=== PATIENT | male | born 1950 | race Caucasian/White ===

== ENCOUNTER 2016-06-16 05:38 | Inpatient (IN) | payer OTHER, BC ==
[2016-06-16] MEDS ORDERED: niCARdipine/NACL/200 ML BAG IV ONE (05:52)
[2016-06-16 06:08] LABS: % IMMATURE GRANULYOCYTES 0.2 % (0.0-1.1); ABSOLUTE IMMATURE GRANULOCYTES 0.02 10^3/uL (0.00-0.10); ADD DIFF? NO; ADD MORPH? NO; ADD SCAN? NO; ATYPICAL LYMPHOCYTE FLAG 0 (0-99); FRAGMENT RBC FLAG 0 (0-99); HEMATOCRIT 48.2 % (40.0-51.0); LEFT SHIFT FLG 0 (0-99); LIPEMIA HEMOLYSIS FLAG 80 (0-99); MEAN CELL HEMOGLOBIN 29.1 pg (27.9-34.1); MEAN CELL HEMOGLOBIN CONCENTR. 33.2 g/dL (32.4-36.7); MEAN CELL VOLUME 87.8 fL (81.5-99.8); PLATELET CLUMPS FLAG 10 (0-99); PLATELET COUNT 272 10^3/uL (150-400); RED BLOOD CELL COUNT 5.49 10^6/uL (4.40-6.38); RED CELL DISTRIBUTION WIDTH 13.3 % (11.5-15.2)
--- NOTE | 2016-06-16 06:08 | EDPHY ---
H & P Stated Complaint: stroke alert HPI/ROS: Chief complaint: Right-sided weakness HPI: 68-year-old male who is visiting from out of town on a ski trip. Patient woke up at 5 o'clock this morning unable to move his right arm or leg. Patient states that he was went to bed at 10:30 a.m. last time was normal. He states he did get up during the night to go to the bathroom but does not know what time this was. Denies hitting his head or falling. Patient states he is feeling somewhat confused right now. On EMS arrival the patient had a flaccid paralysis of his right arm and right leg. The patient initially was not confused but symptoms seem to be worsening per EMS report. He denies past medical history. Takes no medications other than eye drops. No allergies to medications. Patient arrived as a stroke alert at 5:40 a.m. in the morning. ROS: 10 point Review of Systems is negative except as noted in the HPI. Past medical history: None Medications: None Allergies: No known drug allergies Physical exam: Gen: Awake, Alert, very anxious appearing HEENT: Atraumatic Eyes: PERRLA, EOMI Mouth: Moist mucosa Neck: Supple, no JVD Chest: nontender, lungs clear to auscultation Heart: S1, S2 normal, no murmur Abd: Soft, non-tender, no guarding Ext: no edema, non-tender Skin: no rash Neuro: See NIH stroke score - Personal History Current Tetanus/Diphtheria Vaccine: Yes Current Tetanus Diphtheria and Acellular Pertussis (TDAP): Yes - Medical/Surgical History Hx Asthma: No Hx Chronic Respiratory Disease: No Hx Diabetes: No Hx Cardiac Disease: No Hx Renal Disease: No Hx Cirrhosis: No Hx Alcoholism: No Hx HIV/AIDS: No Hx Splenectomy or Spleen Trauma: No Other PMH: enlarged prostate - Social History Smoking Status: Never smoked Constitutional: Initial Vital Signs Temperature (C) 36.2 C 06/16/16 05:40 Heart Rate 73 06/16/16 05:40 Respiratory Rate 16 06/16/16 05:40 Blood Pressure 207/102 H 06/16/16 05:40 O2 Sat (%) 97 06/16/16 05:40 O2 Delivery Mode Nasal Cannula O2 (L/minute) 2 Allergies/Adverse Reactions: No Known Allergies Allergy (Unverified 06/16/16 05:58) Home Medications: Medication Instructions Recorded Dorzolamide HCl 06/16/16 Medical Decision Making - Diagnostics Imaging: CT brain: Interpreted by Dr. Stephen Whitney. Large left parietal intraparenchymal bleed 7 x 3.5 cm with 4-5 mm of midline shift. ED Course/Re-evaluation: 0540 patient arrived stroke alert. NIH scale was performed with a score of 10. Last known time normal was 12/1929 last night. He did get up in the middle of the night to go the bathroom but does did not look at the clock and a what time this was. 0550 CT scan of the brain shows a large left high parietal intraparenchymal hemorrhage. Stroke alert was stood down at this time. Neurosurgery has been paged. Patient was noted to be hypertensive with a systolic blood pressure of 204. I have ordered a nicardipine drip. [address] Garcia, neurosurgery. She will consult on the patient. She agrees with plan for starting nicardipine drip. We strict blood pressure control. She is asking the patient be admitted to the ICU under the internal medicine service. Official CT report has been given to me by Dr. Stephen Whitney. 0600 case discussed with , internal Medicine. She will admit the patient to the ICU. Blood pressure is now 153 systolic on nicardipine infusion. Will continue to titrate. 0620 blood pressure 143 systolic, with decreased titration of the. Dr. Sutton evaluating the patient. Critical Care Time: I spent a total of 45 minutes of critical care time in obtaining history, performing a physical exam, bedside monitoring of interventions, collecting and interpreting tests and discussion with consultants but not including time spent performing procedures. - Data Points Laboratory Results: Laboratory Results 06/16/16 05:40 06/16/16 05:40 06/16/16 06/16/16 06/16/16 05:40 05:40 05:40 WBC RBC Hgb POC Hgb Hct POC Hct MCV MCH MCHC RDW Plt Count MPV Neut % (Auto) Lymph % (Auto) [place] % (Auto) Eos % (Auto) Baso % (Auto) Nucleat RBC Rel Count Absolute Neuts (auto) Absolute Lymphs (auto) Absolute Monos (auto) Absolute Eos (auto) Absolute Basos (auto) Absolute Nucleated RBC Immature Gran % Immature Gran # PT 13.3 SEC SEC (12.0-15.0) INR 1.02 (0.83-1.16) APTT 26.9 SEC SEC (23.0-38.0) POC Sodium Sodium 142 mEq/L mEq/L (134-144) POC Potassium Potassium 4.1 mEq/L mEq/L (3.5-5.2) POC Chloride Chloride 104 mEq/L mEq/L (97-110) Carbon Dioxide 25 mEq/l mEq/l (22-31) Anion Gap 13 mEq/L mEq/L (8-16) POC BUN BUN 22 mg/dL mg/dL (7-23) Creatinine 1.1 mg/dL mg/dL (0.7-1.3) POC Creatinine Estimated GFR > 60 Glucose 109 mg/dL H mg/dL (70-100) POC Glucose Calcium 9.8 mg/dL mg/dL (8.5-10.4) Total Bilirubin 0.6 mg/dL mg/dL (0.1-1.4) Conjugated Bilirubin 0.2 mg/dL mg/dL (0.0-0.5) Unconjugated Bilirubin 0.4 mg/dL mg/dL (0.0-1.1) AST 37 IU/L IU/L (17-59) ALT 34 IU/L IU/L (21-72) Alkaline Phosphatase 34 IU/L L IU/L (38-126) Total Protein 7.6 g/dL g/dL (6.3-8.2) Albumin 4.4 g/dL g/dL (3.5-5.0) Lipase 150.0 IU/L IU/L (23-300) Patient ABO/Rh A NEGATIVE Antibody Screen NEGATIVE 06/16/16 06/16/16 05:40 05:40 WBC 8.99 10^3/uL 10^3/uL (3.80-9.50) RBC 5.49 10^6/uL 10^6/uL (4.40-6.38) Hgb 16.0 g/dL g/dL (13.7-17.5) POC Hgb 16.7 gm/dL gm/dL (14.5-17.3) Hct 48.2 % % (40.0-51.0) POC Hct 49 % % (42.8-50.6) MCV 87.8 fL fL (81.5-99.8) MCH 29.1 pg pg (27.9-34.1) MCHC 33.2 g/dL g/dL (32.4-36.7) RDW 13.3 % % (11.5-15.2) Plt Count 272 10^3/uL 10^3/uL (150-400) MPV 11.0 fL fL (8.7-11.7) Neut % (Auto) 48.6 % % (39.3-74.2) Lymph % (Auto) 39.8 % % (15.0-45.0) Dickens % (Auto) 8.6 % % (4.5-13.0) Eos % (Auto) 2.1 % % (0.6-7.6) Baso % (Auto) 0.7 % % (0.3-1.7) Nucleat RBC Rel Count 0.0 % % (0.0-0.2) Absolute Neuts (auto) 4.37 10^3/uL 10^3/uL (1.70-6.50) Absolute Lymphs (auto) 3.58 10^3/uL H 10^3/uL (1.00-3.00) Absolute Monos (auto) 0.77 10^3/uL 10^3/uL (0.30-0.80) Absolute Eos (auto) 0.19 10^3/uL 10^3/uL (0.03-0.40) Absolute Basos (auto) 0.06 10^3/uL 10^3/uL (0.02-0.10) Absolute Nucleated RBC 0.00 10^3/uL 10^3/uL (0-0.01) Immature Gran % 0.2 % % (0.0-1.1) Immature Gran # 0.02 10^3/uL 10^3/uL (0.00-0.10) PT INR APTT POC Sodium 143 mEq/L mEq/L (134-144) Sodium POC Potassium 3.7 mEq/L mEq/L (3.3-5.0) Potassium POC Chloride 104 mEq/L mEq/L (96-108) Chloride Carbon Dioxide Anion Gap POC BUN 23 mg/dL mg/dL (7-23) BUN Creatinine POC Creatinine 1.1 mg/dL mg/dL (0.8-1.5) Estimated GFR Glucose POC Glucose 113 mg/dL H mg/dL (70-100) Calcium Total Bilirubin Conjugated Bilirubin Unconjugated Bilirubin AST ALT Alkaline Phosphatase Total Protein Albumin Lipase Patient ABO/Rh Antibody Screen Medications Given: Discontinued Medications Levetiracetam 1,000 mg/ Sodium (Chloride) 110 mls @ 440 mls/hr IV EDNOW ONE Stop: 06/16/16 06:34 Last Admin: 06/16/16 06:32 Dose: 110 mls Point of Care Test Results: 06/16/16 05:40 POC Sodium 143 POC Potassium 3.7 POC Chloride 104 POC BUN 23 POC Creatinine 1.1 POC Glucose 113 H Departure - Departure Disposition: [facility] Inpatient Acute Clinical Impression: Cerebral hemorrhage Condition: Critical NIH Stroke Scale Date of Exam: 06/16/16 Time of Exam: 05:40 Level of Consciousness: Alert LOC Questions: Answers One LOC Commands: Performs Both Correctly Best Gaze: Normal Visual: No Visual Loss Facial Palsy: Normal Motor Arm-Left: No Drift Motor Arm-Right: No Movement Motor Leg-Left: No Drift Motor Leg-Right: No Movement Limb Ataxis: Absent Sensory: Mild/Mod Sensory Loss Best Language: No Aphasia Dysarthria: Normal Extinction and Inattention (Neglect): No Abnormality NIH Scale Score: 10
[2016-06-16 06:19] LABS: ALANINE AMINOTRANSFERASE 34 IU/L (21-72); ALBUMIN 4.4 g/dL (3.5-5.0); ALKALINE PHOSPHATASE 34 IU/L (38-126); ANION GAP 13 mEq/L (8-16); ASPARTATE AMINOTRANSFERASE 37 IU/L (17-59); BILIRUBIN,TOTAL 0.6 mg/dL (0.1-1.4); BILIRUBIN-CONJUGATED 0.2 mg/dL (0.0-0.5); BILIRUBIN-UNCONJUGATED 0.4 mg/dL (0.0-1.1); CALCIUM 9.8 mg/dL (8.5-10.4); CARBON DIOXIDE 25 mEq/l (22-31); CHLORIDE 104 mEq/L (97-110); CREATININE 1.1 mg/dL (0.7-1.3); GLOMERULAR FILTRATION RATE > 60; GLUCOSE 109 mg/dL (70-100); POTASSIUM 4.1 mEq/L (3.5-5.2); SODIUM 142 mEq/L (134-144); TOTAL PROTEIN 7.6 g/dL (6.3-8.2)
[2016-06-16 06:20] LABS: INR 1.02 (0.83-1.16); PROTIME(PATIENT) 13.3 SEC (12.0-15.0)
[2016-06-16] MEDS ORDERED: levETIRAcetam 1,000 MG in NS 100 ML IV ONE (06:20)
[2016-06-16 06:21] LABS: APTT 26.9 SEC (23.0-38.0)
[2016-06-16] MEDS ORDERED: NS 1,000 ML IV SCH (06:30)
[2016-06-16] MEDS ORDERED: niCARdipine/NACL 200 ML IV SCH (06:30)
--- NOTE | 2016-06-16 06:42 | PDGENHP ---
History and Physical - Chief Complaint hemiparesis - History of Present Illness Patient is a 66/M with no significant pmh who was brought into the ED as a stroke alert for acute onset R hemiparesis. History is limited by patient, obtained from patient's and ED staff. Patient is visiting his son in [place] from [place] for a vacation. On the day prior to presentation, patient was skiing without incident, denies any obvious fall or head trauma. He went to sleep at around 1030pm without any deficits and also woke up once to urinate, again without deficits (unknown exactly what time this occurred). Patient woke up this morning at about 4am and had complete paralysis of his R side. EMS was called and he was transported to the ED. On arrival to the ED, VS revealed significant hypertension, afebrile, saturating well. CT head revealed a large L parietal intraparenchymal hemorrhage. On arrival to the ED patient was able to answer simple commands and speak single words, however, over the course of his ED stay, his MS began to deteriorate. On my evaluation, patient was aphasic and unable to answer questions or follow commands, with NIH scale 16. He was initiated on a nicardipine drip for BP control and keppra for seizure prophylaxis. History Information - Allergies/Home Medication List Allergies/Adverse Reactions: No Known Allergies Allergy (Unverified 06/16/16 05:58) Home Medications: Dorzolamide HCl 06/16/16 [Last Taken Unknown] I have personally reviewed and updated: family history, medical history, social history, surgical history - Past Medical History Additional medical history: glaucoma/elevated ocular pressure. BPH - Surgical History Reports: no pertinent surgical hx - Family History Positive for: non-pertinent - Social History Smoking Status: Never smoked Alcohol Use: None Drug Use: None Additional social history: Patient from the [facility], on vacation in [place] Review of Systems ROS: 10pt was reviewed & negative except for what was stated in HPI & below Physical Exam Temp Pulse Resp BP Pulse Ox 36.2 C 73 16 207/102 H 96 06/16/16 05:40 06/16/16 05:40 06/16/16 05:40 06/16/16 05:40 06/16/16 06:17 O2 (L/minute) 2 Constitutional: other (anxious, aphasic) Eyes: PERRL, anicteric sclera, EOMI Ears, Nose, Mouth, Throat: moist mucous membranes, hearing normal, ears appear normal, no oral mucosal ulcers Cardiovascular: regular rate and rhythym, no murmur, rub, or gallop, No JVD, No edema Peripheral Pulses: 2+: dorsalis-pedis (R), dorsalis-pedis (L) Respiratory: no respiratory distress, no rales or rhonchi, clear to auscultation Gastrointestinal: normoactive bowel sounds, soft, non-tender abdomen, no palpable masses Genitourinary: no bladder fullness, no bladder tenderness Skin: warm, normal color, no rashes or abrasions, no fluctuance, no induration, No mottled Neurologic: other (oriented to person, not able to follow simple commands, R hemiparesis 0/5 in upper and lower extremities; moving left extremities; ) Lab Data & Imaging Review 06/16/16 05:40 06/16/16 05:40 WBC 8.99 10^3/uL (3.80-9.50) 06/16/16 05:40 RBC 5.49 10^6/uL (4.40-6.38) 06/16/16 05:40 Hgb 16.0 g/dL (13.7-17.5) 06/16/16 05:40 POC Hgb 16.7 gm/dL (14.5-17.3) 06/16/16 05:40 Hct 48.2 % (40.0-51.0) 06/16/16 05:40 POC Hct 49 % (42.8-50.6) 06/16/16 05:40 MCV 87.8 fL (81.5-99.8) 06/16/16 05:40 MCH 29.1 pg (27.9-34.1) 06/16/16 05:40 MCHC 33.2 g/dL (32.4-36.7) 06/16/16 05:40 RDW 13.3 % (11.5-15.2) 06/16/16 05:40 Plt Count 272 10^3/uL (150-400) 06/16/16 05:40 MPV 11.0 fL (8.7-11.7) 06/16/16 05:40 Neut % (Auto) 48.6 % (39.3-74.2) 06/16/16 05:40 Lymph % (Auto) 39.8 % (15.0-45.0) 06/16/16 05:40 [place] % (Auto) 8.6 % (4.5-13.0) 06/16/16 05:40 Eos % (Auto) 2.1 % (0.6-7.6) 06/16/16 05:40 Baso % (Auto) 0.7 % (0.3-1.7) 06/16/16 05:40 Nucleat RBC Rel Count 0.0 % (0.0-0.2) 06/16/16 05:40 Absolute Neuts (auto) 4.37 10^3/uL (1.70-6.50) 06/16/16 05:40 Absolute Lymphs (auto) 3.58 10^3/uL (1.00-3.00) H 06/16/16 05:40 Absolute Monos (auto) 0.77 10^3/uL (0.30-0.80) 06/16/16 05:40 Absolute Eos (auto) 0.19 10^3/uL (0.03-0.40) 06/16/16 05:40 Absolute Basos (auto) 0.06 10^3/uL (0.02-0.10) 06/16/16 05:40 Absolute Nucleated RBC 0.00 10^3/uL (0-0.01) 06/16/16 05:40 Immature Gran % 0.2 % (0.0-1.1) 06/16/16 05:40 Immature Gran # 0.02 10^3/uL (0.00-0.10) 06/16/16 05:40 PT 13.3 SEC (12.0-15.0) 06/16/16 05:40 INR 1.02 (0.83-1.16) 06/16/16 05:40 APTT 26.9 SEC (23.0-38.0) 06/16/16 05:40 POC Sodium 143 mEq/L (134-144) 06/16/16 05:40 Sodium 142 mEq/L (134-144) 06/16/16 05:40 POC Potassium 3.7 mEq/L (3.3-5.0) 06/16/16 05:40 Potassium 4.1 mEq/L (3.5-5.2) 06/16/16 05:40 POC Chloride 104 mEq/L (96-108) 06/16/16 05:40 Chloride 104 mEq/L (97-110) 06/16/16 05:40 Carbon Dioxide 25 mEq/l (22-31) 06/16/16 05:40 Anion Gap 13 mEq/L (8-16) 06/16/16 05:40 POC BUN 23 mg/dL (7-23) 06/16/16 05:40 BUN 22 mg/dL (7-23) 06/16/16 05:40 Creatinine 1.1 mg/dL (0.7-1.3) 06/16/16 05:40 POC Creatinine 1.1 mg/dL (0.8-1.5) 06/16/16 05:40 Estimated GFR > 60 06/16/16 05:40 Glucose 109 mg/dL (70-100) H 06/16/16 05:40 POC Glucose 113 mg/dL (70-100) H 06/16/16 05:40 Calcium 9.8 mg/dL (8.5-10.4) 06/16/16 05:40 Total Bilirubin 0.6 mg/dL (0.1-1.4) 06/16/16 05:40 Conjugated Bilirubin 0.2 mg/dL (0.0-0.5) 06/16/16 05:40 Unconjugated Bilirubin 0.4 mg/dL (0.0-1.1) 06/16/16 05:40 AST 37 IU/L (17-59) 06/16/16 05:40 ALT 34 IU/L (21-72) 06/16/16 05:40 Alkaline Phosphatase 34 IU/L (38-126) L 06/16/16 05:40 Total Protein 7.6 g/dL (6.3-8.2) 06/16/16 05:40 Albumin 4.4 g/dL (3.5-5.0) 06/16/16 05:40 Lipase 150.0 IU/L (23-300) 06/16/16 05:40 Visualized and Interpreted imaging results: Yes Interpretation: CT head: large L pareietal intraparenchymal bleed Visualized and Interpreted EKG results: Yes EKG Interpretation: Positive for: normal sinsus rhythm (with minimal ST depressions in lateral leads) Assessment & Plan Assessment: Patient is 66/M with no significant pmh who presents to the ED with sudden onset R hemiparesis, arrive to the ED as a stroke alert at 540am, was found to have a large L parietal intraparenchymal hemorrhage. Plan: # acute intraparenchymal hemorrhage Patient denies any use of antiplatelet or blood thinning meds. CT shows evidence of large hemorrhage with surrounding edema causing midline shift. Patient is currently maintaining his airway, but his mental status seems to be deteriorating over the course of his ED stay. Neurosurgery has been contacted, recommendations pending. Will continue nicardipine for strict BP control with goal at SBP 140. Also initiated seizure prophylaxis with keppra. # acute hypertension BP significantly elevated on arrival, improved with nicardipine drip. Will cont this, pending further neurosurgery recommendations. # dispo: admit to ICU # gen: NPO DVT ppx: scds full code
--- NOTE | 2016-06-16 06:45 | CPEKG ---
Heart Rate: 91 RR Interval: 659 P-R Interval: 144 QRSD Interval: 100 QT Interval: 388 QTC Interval: 478 P Lytle: 66 QRS Lytle: 20 T Wave Lytle: -20 EKG Severity - ABNORMAL ECG - EKG Impression: SINUS RHYTHM EKG Impression: PROBABLE LEFT ATRIAL ABNORMALITY EKG Impression: NONSPECIFIC REPOL ABNORMALITY, DIFFUSE LEADS EKG Impression: BORDERLINE PROLONGED QT INTERVAL Electronically Signed By: Mack Foreman 16-Jun-2016 14:22:31
--- NOTE | 2016-06-16 07:52 | NEUSURGPN ---
Assessment/Plan: 66 yo male with left IPH - neuro checks - repeat head CT in 4 hours - maintain SBP < 140, on nicardipine - transfuse a pack of platelets due to questionable ASA use - PT/OT/ST Patient seen by myself and Dr. Garcia in the ED. Full consult note dictated. Subjective: Patient is aphasic. Objective: Aphasic. PERRL Right hemiplegic Following commands on LUE and LLE - Physician Patient Seen by Dr.: Garcia Neurosurgery Physical Exam - Vitals, I&O, Labs I and O 06/15/16 06/16/16 06/17/16 05:59 05:59 05:59 Intake Total 160 Output Total 550 Balance -390 Intake: IV Infused (ml) 160 Output: Urine (ml) 550 Other: Number of Voids 2 Vital Signs Temp Pulse Resp BP Pulse Ox 36.2 C 91 20 135/74 H 95 06/16/16 05:40 06/16/16 07:18 06/16/16 07:18 06/16/16 07:18 06/16/16 07:18 ICD10 Worksheet Patient Problems: Problems Problem Status Onset Cerebral hemorrhage Acute
--- NOTE | 2016-06-16 10:11 | GCON ---
[f rep st] CONSULTATION HISTORY OF PRESENT ILLNESS: The patient is a 66-year-old male who was brought to the emergency depa rtment due to acute onset of right-sided weakness. He and his are here on vacation from [facility] and spent some time skiing in [place]. Their plan was to leave this morning and fly back. The patient went to bed last evening in normal state of health. He then awoke this morning with right- sided weakness. Per the , the patient was not complaining of any headache, did not have any rogelio sea or vomiting. No seizures. Since arrival at the hospital, patient has become aphasic. History was obtained from the . She is unsure if he takes a daily aspirin but does know he takes it occ asionally. No other known blood thinners. PAST MEDICAL HISTORY: Denies. PAST SURGICAL HISTORY: Hernia repair, eye surgery. ALLERGIES: No known drug allergies. HOME MEDICATIONS: Dorzolamide. FAMILY HISTORY: Noncontributory. SOCIAL HISTORY: Unable to obtain as the patient is aphasic; however, per , the patient drinks o ccasionally. No tobacco use. PHYSICAL EXAMINATION: The patient was seen and examined in the emergency room department. VITAL SI GNS: Blood pressure 140/71, heart rate is 84, respiration rate is 18, breathing 98% on 2 L nasal ca nnula, temperature 36.6. Pupils are equal and reactive. Extraocular movements are intact. Facial expression is symmetrical. The patient is aphasic. He is following commands on the left upper and lower extremities. No movement on the right side. He is right hemiplegic. RESULTS: White count 8.99, hemoglobin 16.0, hematocrit 48.2, platelet count 272. PT 13.3. INR 1.0 2. PTT 26.9. Sodium 142, potassium 4.1, chloride 104, bicarb 25, BUN 22, creatinine 1.1. He had a head CT completed demonstrating large intraparenchymal hemorrhage in the high left parietal lobe with surrounding edema resulting in mild mass effect and shift. ASSESSMENT AND PLAN: In summary, the patient is a 66-year-old male who is aphasic and right hemiple gic. He had a head CT completed demonstrating a large intraparenchymal hemorrhage in the high left parietal lobe with surrounding edema resulting in mild mass effect and shift. The plan will be to transfuse with packed red platelets as it is unknown if the patient was taking a spirin on a routine basis. He will be admitted to the intensive care unit under the medicine team w ith q.1 hour neuro checks and maintaining systolic blood pressure less than 140. Head of bed should remain greater than 30 degrees. We will repeat a head CT in approximately 4 hours. No plans for s urgical intervention at this time. The patient was seen and examined by myself and Dr. Adriana Garcia in the emergency room department. /[id number]/MODL
[2016-06-16] MEDS ORDERED: ALTEPLASE 2 MG VIAL IVP PRN (10:38)
[2016-06-16] MEDS: niCARdipine/NACL 200 ML IV SCH ×6 (10:55→23:47)
[2016-06-16] MEDS: SODIUM Cl 3% 500 ML IV SCH (12:39)
--- NOTE | 2016-06-16 14:17 | GCON ---
[f rep st] CONSULTATION CRITICAL CARE CONSULT. DATE OF CONSULTATION: 06/16/2016 HISTORY OF PRESENT ILLNESS: This patient is a 66-year-old male, who did not have medical problems, who was brought to the emergency department early this morning after waking up with a severe headach e. He had been visiting [place] from the [facility] and doing well, skiing without difficulty, and woke up around 4:00 a.m. with complete paralysis of his right side. EMS was called, and he was brou ght to the emergency department. A head CT revealed a very large left parietal intraparenchymal hem orrhage. When he first arrived in the emergency department he was able to answer questions, follow simple commands, and speak in single words, however, over the course of his stay his mental status d id deteriorate. He was evaluated by Neurosurgery and no surgical intervention was required, but german se monitoring in the ICU was recommended, including blood pressure control. He did receive a transf usion of platelets, though I believe his platelet count was normal, and has been relatively stable i n the ICU since that period of time. Keppra and nicardipine were also started. REVIEW OF SYSTEMS: Otherwise negative. PAST MEDICAL HISTORY: Includes increased intraocular pressure, though his family says he was not di agnosed with glaucoma. He also has benign prostatic hypertrophy. PAST SURGICAL HISTORY: None. FAMILY HISTORY: None. SOCIAL HISTORY: He is a nonsmoker. No alcohol or IV drug use. MEDICATIONS: Outpatient medications were reviewed. PHYSICAL EXAM: VITAL SIGNS: He was afebrile, blood pressure was 139/77, heart rate of 93, respirat ions 16, oxygen saturation 95% on 1 L. GENERAL: He was awake and alert, though he was unable to re ally answer questions meaningfully. He did use 1 or 2 words that were easy to detect, but they were not helpful in answering the questions. HEENT: He had a right-sided facial droop, though his pupi ls were equal and reactive to light briskly. His extraocular movements were intact. He was able to shrug only his left shoulder. His right side was largely flaccid. Deep tendon reflexes were equiv ocal. Mucous membranes are moist without erythema or exudate. NECK: Supple, without adenopathy or jugular vein distention. RESPIRATORY: Breath sounds were clear to auscultation bilaterally withou t wheezes, rubs or rales. HEART: Regular rate and rhythm, without obvious murmurs, rubs, or gallop s. ABDOMEN: Soft, nontender, nondistended without hepatosplenomegaly. EXTREMITIES: Show no clubb ing, cyanosis, or edema. SKIN: Warm and dry without evidence of rash. LABORATORIES: Objective data includes the CT scans as described above. His white count this morning was 8.9, hematocrit was 48.2, platelets of 272. INR is 1.02. Basic me tabolic panel was normal, including a sodium of 142, creatinine 1.1. LFTs were normal. The alkalin e phosphatase was low at 34, lipase 150, albumin 4.4. ASSESSMENT AND PLAN: Acute intracranial hemorrhage. Not mentioned above was a blood pressure of ov er 200 on arrival to the emergency department, presumably which is the cause of his hemorrhage, vers us a secondary response. In any case Neurosurgical is following, and no surgical intervention is pl anned at this moment. There was a progression of disease on his subsequent CT scan, though his clin ical status appears to be unchanged at this time. Moving forward, we will continue to maintain a sy stolic blood pressure of less than 140, I would continue the nicardipine drip for this. Neurosurger y has ordered Keppra as seizure prophylaxis, which is not unreasonable at this time. He does have e vidence of increased intracranial pressure with a midline shift, and mild rightward subfalcine herni ation. Subsequently we will keep the head of his bed greater than 30 degrees, he is getting normal saline at this time. I believe Neurosurgery is considering hypertonic saline, more so than mannitol . He seems to be protecting his airway right now, so I do not think a ventilator is required, and h yperventilation is somewhat controversial. I calculated his [place] Coma Scale at about 13, and he seems to be stable at this time. We will continue observation, check a swallow study, and initiate physical therapy and occupational therapy in the near future. About 45 minutes of critical care ryley heath was required for this critically ill patient. /[id number]/MODL
--- NOTE | 2016-06-16 15:57 | HOSPPROG ---
Hospitalist Progress Note Assessment/Plan: * Intra-parenchymal hemorrhage with right hemiparesis and aphasia -some progression by CT - serial CT per neurosurgery -edema with mass effect/shift -IV 3% saline * HTN - SBP > 200 on admission (primary vs. secondary?) -IV Cardene gtt - goal SBP < 140 * Dysphagia - NPO -will likely require tube feeds * Chronic ASA use -s/p platelet transfusion * Increase intra-ocular pressure -continue Trusopt Subjective: awake but aphasic, can't move right side Objective: Vital Signs Temp Pulse Resp BP Pulse Ox 36.6 C 101 H 20 135/62 H 96 06/16/16 08:00 06/16/16 15:00 06/16/16 15:00 06/16/16 15:00 06/16/16 15:00 06/15/16 06/16/16 06/17/16 05:59 05:59 05:59 Intake Total 160 Output Total 550 Balance -390 PT 13.3 SEC (12.0-15.0) 06/16/16 05:40 INR 1.02 (0.83-1.16) 06/16/16 05:40 d/w Dr. Shirley ICU rounds - we will clarify plan with neurosurgery Head CT - some edema mass effect and midline shift - Physical Exam Constitutional: no apparent distress, appears nourished, not in pain Cardiovascular: regular rate and rhythym, no murmur, rub, or gallop Respiratory: no respiratory distress, no rales or rhonchi, clear to auscultation Gastrointestinal: normoactive bowel sounds, soft, non-tender abdomen, no palpable masses Neurologic: AAOx3 (unable to assess but seems to understand what is going on around him), weakness (complete right hemiparesis), numbness, facial droop, other (follows commands very consistently, very awake) Psychiatric: interacting appropriately, flat affect, No encephalopathic, No agitated ICD10 Worksheet Patient Problems: Problems Problem Status Onset Cerebral hemorrhage Acute
--- NOTE | 2016-06-16 16:27 | GCON ---
[f rep st] CONSULTATION NEUROLOGY CONSULTATION DATE OF CONSULTATION: 06/16/2016 REFERRING PHYSICIAN: Ivone Sutton MD CHIEF COMPLAINT: Intracerebral hemorrhage. HISTORY OF PRESENT ILLNESS: The patient is a very pleasant 66-year-old gentleman who is visiting from [place] on a ski trip to [place]. He went to bed without any problems last night at 10:30 p.m. and was normal. He got up at 5 a.m. to actually go home today and catch a flight in [place]. He was unable to move his right arm or right leg and came to the emergency department under a stroke alert. A head CT was done upon arrival immediately at 5:42 a.m. It showed a large intraparenchymal hemorrhage in the high left parietal lobe with surrounding edema. Neurosurgery was consulted and saw the patient as well. He was also seen in the ICU team, Dr. Shirley. He initially had a blood pressure systolics in the 200s which has been tightly controlled with IV nicardipine and under 140s and controlled now. The patient has no known past medical history. No history of hypertension or other chronic medical problems. He takes eyedrops for some ophthalmologic condition. He has no family history of amyloid or Alzheimer disease that they know of. PAST MEDICAL HISTORY: Some ophthalmological condition. HOME MEDICATION: Eye drops. ALLERGIES: No known drug allergies. SOCIAL HISTORY: He is . Lives in [place]. FAMILY HISTORY: No heritable neurologic disease. REVIEW OF SYSTEMS: A 10-point review of systems was done and only pertinent to the HPI. PHYSICAL EXAMINATION: VITAL SIGNS: Current vital signs, 135/62, O2 sats 96. The patient is afebrile at 36.6. NEUROLOGIC: Higher mental function: He is awake and alert. He has significant aphasia with mixed features. He can name slowly and named 4/5 correctly; with repetition, he scored 3/4; and following commands 0/4. There appeared to be significant comprehension issues, and the patient had a paucity or almost no spontaneous verbal output. There was also some right-sided neglect with a left gaze preference. On cranial nerve exam, the patient has an upper motor neuron right-sided facial weakness and left gaze preference. On motor exam, he has a fairly dense right hemiparesis. Sensory exam was unreliable due to the patient's aphasia. Coordination: On the left seemed unremarkable, on the right untestable due to his degree of hemiparesis. IMPRESSION/PLAN: 1. Large left parietal intraparenchymal hemorrhage. The etiology of the patient's intraparenchymal cerebral hemorrhage is unclear. We need to pursue an MRI brain and MRA of brain when stable. I will defer to my colleagues in Neurosurgery on what specific studies they also would like. I also agree with their blood pressure parameters. All anticoagulants/ antithrombotic must be held. He will need maximal therapies including OT, speech therapy, and physical therapy. We will tightly control his blood pressure and perform regular neuro checks. He will have a repeat head CT this afternoon without contrast. His was also interested in possible transfer to a higher level of care in [place] for neuro-intensive care. Certainly, that is a reasonable course of action. We can consider that transfer tomorrow morning if they are still interested. We also discussed long-term therapies including rehabilitation, etc. today. All questions were answered to the best of my ability. 70 minutes of total floor time today; over 50% in counseling and coordination of care with the patient and his . /[id number]/MODL MTDD
--- NOTE | 2016-06-16 17:20 | ECHO ---
[id number] + + [address] : : [place] [address] : : [phone] + + Adult Echocardiographic Report + --------+ :Name: Malinda ANGUIANO Date: 06/16/2016 09:57 AM BP: 149/69 mm Hg : : Hospital Admission Number: [id number] Locat ion: 253: :: 1950 Gender: Male Height: 69 in : :Age: 66 yrs Race: WH Weight: 155 l b : :Reason For Study: source of emboli and r/o PFO : : BSA: 1.9 mete rs2 : :History: Hemorrhagic stroke : + --------+ MMode/2D Measurements \T\ Calculations IVSd: 1.0 cm RVDd: 3.6 cm FS: 45.0 % Ao root diam: LVPWd: 1.1 cm LVIDd: 4.5 cm EDV(Teich): 92.1 ml3.0 cm LVIDs: 2.5 cm ESV(Teich): 21.7 mlLA dimension: EF(Teich): 76.4 % 2.9 cm LVOT diam: 2.2 cmLVLd ap4: 8.5 cm SV(MOD-sp4): LVOT area: EDV(MOD-sp4): 93.0 ml 4.0 cm2 146.0 ml LVLs ap4: 6.6 cm ESV(MOD-sp4): 53.0 ml EF(MOD-sp4): 63.7 % Normal Measurement Values: + + :LVIDd (3.5-5.7cm) IVSd (0.6-1.1cm) LVPWd (0.6-1.1cm) Aortic Root (2.0-3.7cm)Left Atrium (1.5-4.0cm): :LV Vol(d) (76-115ml) LV Vol(s) (29-48ml) Ejec Fraction (50-65%)PV Joe (0.6- 1.2m/s) TV Joe (0.4-1.0m/s) : :MV E Joe (0.8-1.0m/s)MV A Joe (0.3-1.0m/s)LVOT Joe (0.7-1.2m/s) Asc Ao Joe ( 0.9-1.8m/s) : + + Doppler Measurements \T\ Calculations MV E max joe: Ao V2 max: LV V1 max: SV(LVOT): 82.9 cm/sec 220.4 cm/sec 140.4 cm/sec 88.7 ml MV A max joe: Ao max P.4 mmHg LV V1 max P.7 cm/sec Ao mean P.8 mmHg 7.9 mmHg MV E/A: 1.3 Ao V2 mean: LV V1 mean PG: MV dec time: 0.20 joz902.1 cm/sec 3.2 mmHg Ao V2 VTI: 40.5 cm LV V1 mean: GABRIELLE(I,D): 2.2 cm2 84.9 cm/sec LV V1 VTI: 22.4 cm GABRIELLE(V,D): 2.5 cm2 PA V2 max: TR max joe: 93.7 cm/sec 285.1 cm/sec PA max P.5 mmHg TR max P.5 mmHg RAP systole: 10.0 mmHg RVSP(TR): 42.5 mmHg Left Ventricle The left ventricle is normal in size and function. There is mild concentric left ventricular hypertrophy. Ejection Fraction = 65%. No regional wall motion abnormalities noted. Right Ventricle The right ventricle is normal in size and function. Atria The left atrium is mildly dilated. The Left Atrial Volume is 35 ml/m2. Right atrial size is normal. Injection of contrast documented no interatrial shunt. Mitral Valve The mitral valve is normal in structure and function. There is no mitral valve stenosis. There is no mitral regurgitation noted. Tricuspid Valve The tricuspid valve is normal in structure and function. There is no tricuspid stenosis. There is mild tricuspid regurgitation. Right ventricular systolic pressure is 43mmHg. There is Doppler evidence for mild pulmonary hypertension. Aortic Valve The aortic valve is trileaflet. Mild aortic sclerosis. Mildly increased velocity across the aortic valve with no significant stenosis. Mild aortic regurgitation. Pulmonic Valve The pulmonic valve is not well visualized. Great Vessels The aortic root is normal size. Pericardium/Pleural There is no pericardial effusion. Conclusion A two-dimensional transthoracic echocardiogram with M-mode and Doppler was performed. Contrast injection was performed. There is no obvious source of embolus identified. If one is highly clinically suspected, then transesophageal echocardiography should be considered. Mild concentric LVH. Ejection Fraction = 65%. The left atrium is mildly dilated. There is mild tricuspid regurgitation. RVSP is 43mmHg. indicative of mild pulmonary hypertension. Mild aortic sclerosis. Mild aortic regurgitation. Final Reading Physician: Cal Layton signed on 06/16/2016 05:19 PM Ordering Physician: Ivone Sutton Performed By: Vidya Brandt
[2016-06-16] MEDS ORDERED: ONDANSETRON 4 MG/2 ML VIAL ONE (18:38)
[2016-06-16] MEDS ORDERED: ONDANSETRON 4 MG/2 ML VIAL IVP PRN (19:13)
[2016-06-16] MEDS: DORZOLAMIDE 2% OPTH DROPS LEFTEYE SCH (20:02)
[2016-06-17] MEDS: niCARdipine/NACL 200 ML IV SCH ×3 (02:03→06:27)
[2016-06-17] MEDS: ACETAMINOPHEN 325 MG TAB PO PRN ×2 (03:03→18:37)
[2016-06-17 06:02] LABS: % IMMATURE GRANULYOCYTES 0.4 % (0.0-1.1); ABSOLUTE IMMATURE GRANULOCYTES 0.06 10^3/uL (0.00-0.10); ADD DIFF? NO; ADD MORPH? NO; ADD SCAN? NO; ATYPICAL LYMPHOCYTE FLAG 0 (0-99); FRAGMENT RBC FLAG 0 (0-99); HEMATOCRIT 40.8 % (40.0-51.0); LEFT SHIFT FLG 20 (0-99); LIPEMIA HEMOLYSIS FLAG 90 (0-99); MEAN CELL HEMOGLOBIN 29.8 pg (27.9-34.1); MEAN CELL HEMOGLOBIN CONCENTR. 34.3 g/dL (32.4-36.7); MEAN CELL VOLUME 86.8 fL (81.5-99.8); MEAN PLATELET VOLUME 10.8 fL (8.7-11.7); PLATELET CLUMPS FLAG 0 (0-99); PLATELET COUNT 254 10^3/uL (150-400); RED CELL DISTRIBUTION WIDTH 13.3 % (11.5-15.2)
[2016-06-17 06:12] LABS: ANION GAP 9 mEq/L (8-16); CALCIUM 8.5 mg/dL (8.5-10.4); CARBON DIOXIDE 21 mEq/l (22-31); CHLORIDE 111 mEq/L (97-110); CREATININE 0.8 mg/dL (0.7-1.3); GLOMERULAR FILTRATION RATE > 60; GLUCOSE 134 mg/dL (70-100); POTASSIUM 3.9 mEq/L (3.5-5.2); SODIUM 141 mEq/L (134-144)
--- NOTE | 2016-06-17 07:39 | NEUSURGPN ---
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 Garcia and myself Subjective: denies any pain, nausea, dizziness Objective: NAD A&Ox3 right sided hemiparesis, right sided neglect.LUE and LLE / - Physician Patient Seen by : [facility] Neurosurgery Physical Exam - Vitals, I&O, Labs I and O 06/16/16 06/17/16 06/18/16 05:59 05:59 05:59 Intake Total 2768 Output Total 2775 Balance -7 Weight 70.307 kg Intake: IV Infused (ml) 2518 SODIUM Cl 3% 500 ml @ 25 381 mls/hr IV CONT LANE Rx#: [id number] niCARdipine/NACL 200 ml @ [address] Rx#: [id number] Platelets (ml) 250 Output: Urine (ml) 2775 Urinal 2225 Other: Number of Voids 2 Urinal 1 Vital Signs Temp Pulse Resp BP Pulse Ox 37.6 C 88 18 135/63 H 96 06/17/16 06:39 06/17/16 06:00 06/17/16 06:00 06/17/16 06:00 06/17/16 06:00 Laboratory Results 06/17/16 05:45 06/17/16 05:45 ICD10 Worksheet Patient Problems: Problems Problem Status Onset Cerebral hemorrhage Acute
[2016-06-17] MEDS: DORZOLAMIDE 2% OPTH DROPS LEFTEYE SCH ×2 (09:35→20:01)
--- NOTE | 2016-06-17 11:31 | PDINTPN ---
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 Brought to ED where CT revealed large intraparenchymal hemorrhage with shift. On arrival, patient was communicating normally, but developed partial expressive aphasia. Repeat head CT showed some increase in the ICH. No surgical intervention required, but started Cardene drip for BP control, Keppra for seizure prophylaxis, and hypertonic saline to achieve Na 145-155. * ICH- etiology unclear, though may be hypertensive since his SBP on admission was >200 (though no known hx of HTN and no previous meds). He is clearly clinically improved today with loss of facial droop and improved communication, though still has profound weakness of his RUE and RLE. Was up on his feet with PT earlier today. Passed swallow evaluation. No evidence of salt wasting, though he has had intermittent boluses of 3% saline to minimize cerebral edema and keep ICP low. Immediate transfer to another facility at this time does not seem necessary. * HTN- will transition to po meds as OK'd by neurosurgery. Target remains SBP < 140 * Dispo: long discussion with family today about where appropriate rehab will be when he is ready. They are weighing their options, but are inclined to remain local for at least the beginning of rehab. * Subjective: Improved from 06/16- denies MICHAELS. Episode of emesis reported. Objective: Vital Signs Temp Pulse Resp BP Pulse Ox 37 C 88 18 133/61 H 98 06/17/16 08:00 06/17/16 10:00 06/17/16 10:00 06/17/16 10:00 06/17/16 10:00 Laboratory Results 06/17/16 05:45 06/17/16 05:45 06/16/16 06/17/16 06/18/16 05:59 05:59 05:59 Intake Total 2768 Output Total 2775 Balance -7 PT 13.3 SEC (12.0-15.0) 06/16/16 05:40 INR 1.02 (0.83-1.16) 06/16/16 05:40 Physical Exam - Physical Exam General Appearance: WD/WN, alert, no apparent distress EENT: PERRL/EOMI, normal ENT inspection Neck: full range of motion, supple Respiratory: lungs clear, normal breath sounds, No respiratory distress Cardiac/Chest: normal peripheral pulses, regular rate, rhythm, No edema Abdomen: normal bowel sounds, non-tender, soft, No distended Skin: normal color, warm/dry, No cyanosis Lymphatic: no adenopathy Extremities: No pedal edema Neuro/Psych: alert, normal mood/affect, oriented x 3, 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
[2016-06-17] MEDS: LISINOPRIL 10 MG TAB PO SCH (13:27)
--- NOTE | 2016-06-17 14:00 | HOSPPROG ---
Hospitalist Progress Note Assessment/Plan: * Intra-parenchymal hemorrhage with right hemiparesis and aphasia -significantly improved today - talking/passed swallow -edema with mass effect/shift -IV 3% saline per neurosurgery -serial head CT * HTN - SBP > 200 on admission -IV Cardene gtt - goal SBP < 140 -okay to start oral agent - lisinopril * Increase intra-ocular pressure -continue Trusopt Subjective: Speech is better, he can now communicate quite well but he still feels presence of expressive aphasia. Objective: Vital Signs Temp Pulse Resp BP Pulse Ox 36.9 C 81 15 133/64 H 95 06/17/16 12:00 06/17/16 13:00 06/17/16 13:00 06/17/16 13:00 06/17/16 13:00 Laboratory Results 06/17/16 05:45 06/17/16 12:00 06/16/16 06/17/16 06/18/16 05:59 05:59 05:59 Intake Total 2768 Output Total 2775 Balance -7 PT 13.3 SEC (12.0-15.0) 06/16/16 05:40 INR 1.02 (0.83-1.16) 06/16/16 05:40 d/w Dr. Shirley ICU rounds - neurologically improved, will start PO antihypertensives tele reviewed - NSR - Physical Exam Constitutional: no apparent distress, appears nourished, not in pain Cardiovascular: regular rate and rhythym, no murmur, rub, or gallop Respiratory: no respiratory distress, no rales or rhonchi, clear to auscultation Gastrointestinal: normoactive bowel sounds, soft, non-tender abdomen, no palpable masses Skin: no rashes or abrasions, no fluctuance, no induration Neurologic: AAOx3, weakness (right), numbness (right), facial droop (right) Psychiatric: interacting appropriately, not anxious, not encephalopathic, thought process linear ICD10 Worksheet Patient Problems: Problems Problem Status Onset Cerebral hemorrhage Acute
--- NOTE | 2016-06-17 14:25 | NEUROPROG ---
Assessment: 1. Large left intraparenchymal hemorrhage 35 minutes Floor time; over 50% in counseling with the patient and his and coordination of care. The patient has had some improvement in his deficits according to family with more fluent speech. reviewed records. I left a message with Neurosurgery regarding when they would like to do further imaging, i.e. MRI MRA. no anti thrombotics continue supportive care and therapies.. We will follow up on the above. Subjective: No new symptoms Objective: Vital Signs Temp Pulse Resp BP Pulse Ox 36.9 C 81 15 133/64 H 95 06/17/16 12:00 06/17/16 13:00 06/17/16 13:00 06/17/16 13:00 06/17/16 13:00 Laboratory Results 06/17/16 05:45 06/17/16 12:00 06/16/16 06/17/16 06/18/16 05:59 05:59 05:59 Intake Total 2768 Output Total 2775 Balance -7 PT 13.3 SEC (12.0-15.0) 06/16/16 05:40 INR 1.02 (0.83-1.16) 06/16/16 05:40 dense right jamie paresis awake and alert mixed aphasia Allergies/Adverse Reactions: No Known Allergies Allergy (Unverified 06/16/16 05:58)
[2016-06-17] MEDS: hydrALAZINE 20 MG/ML VIAL IVP PRN (16:28)
[2016-06-18] MEDS: hydrALAZINE 20 MG/ML VIAL IVP PRN ×2 (00:21→14:12)
[2016-06-18 05:57] LABS: % IMMATURE GRANULYOCYTES 0.4 % (0.0-1.1); ABSOLUTE IMMATURE GRANULOCYTES 0.05 10^3/uL (0.00-0.10); ADD DIFF? NO; ADD MORPH? NO; ADD SCAN? NO; ATYPICAL LYMPHOCYTE FLAG 0 (0-99); FRAGMENT RBC FLAG 0 (0-99); HEMATOCRIT 40.1 % (40.0-51.0); HEMOGLOBIN 13.6 g/dL (13.7-17.5); LEFT SHIFT FLG 10 (0-99); LIPEMIA HEMOLYSIS FLAG 90 (0-99); MEAN CELL HEMOGLOBIN 29.7 pg (27.9-34.1); MEAN CELL HEMOGLOBIN CONCENTR. 33.9 g/dL (32.4-36.7); MEAN CELL VOLUME 87.6 fL (81.5-99.8); MEAN PLATELET VOLUME 10.9 fL (8.7-11.7); PLATELET CLUMPS FLAG 10 (0-99); PLATELET COUNT 237 10^3/uL (150-400); RED BLOOD CELL COUNT 4.58 10^6/uL (4.40-6.38); RED CELL DISTRIBUTION WIDTH 13.6 % (11.5-15.2)
[2016-06-18] MEDS: SODIUM Cl 3% 500 ML IV SCH (06:13)
[2016-06-18 06:15] LABS: ANION GAP 10 mEq/L (8-16); CALCIUM 8.7 mg/dL (8.5-10.4); CARBON DIOXIDE 23 mEq/l (22-31); CHLORIDE 113 mEq/L (97-110); CREATININE 0.8 mg/dL (0.7-1.3); GLOMERULAR FILTRATION RATE > 60; GLUCOSE 146 mg/dL (70-100); POTASSIUM 3.7 mEq/L (3.5-5.2); SODIUM 146 mEq/L (134-144)
--- NOTE | 2016-06-18 08:27 | NEUSURGPN ---
Assessment/Plan: 66y/o male with left IPH, aphasia and right sided neglect/paralysis -Repeat HCT this morning stable, will obtain next head CT in 2 weeks -Start to wean 3%, decrease to 15cc/hr. If repeat Na stable, will discontinue 3 %. 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 Alert. PERRL. EOMI Speech fluent Muscle strength on LUE and LLE 5/5 0/5 RLE and RUE Sensation intact - Physician Discussed Patient with : Jose Neurosurgery Physical Exam - Vitals, I&O, Labs I and O 06/17/16 06/18/16 06/19/16 05:59 05:59 05:59 Intake Total 2768 2246 Output Total 2775 1500 150 Balance -7 746 -150 Weight 70.307 kg Intake: Oral (ml) 1090 IV Infused (ml) 2518 1156 SODIUM Cl 3% 500 ml @ 30 381 320 mls/hr IV CONT LANE Rx#: [id number] niCARdipine 50 mg In Ns 836 250 ml @ Titrate IV AD LANE Rx#:[id number] niCARdipine/NACL 200 ml @ [address] Rx#: [id number] Platelets (ml) 250 Output: Urine (ml) 2775 1500 150 Urinal 2225 1500 150 Other: Number of Voids 2 Urinal 1 1 1 Vital Signs Temp Pulse Resp BP Pulse Ox 36.8 C 89 12 132/58 H 97 06/18/16 08:00 06/18/16 08:00 06/18/16 08:00 06/18/16 08:00 06/18/16 08:00 Laboratory Results 06/18/16 05:42 06/18/16 05:42 ICD10 Worksheet Patient Problems: Problems Problem Status Onset Cerebral hemorrhage Acute
[2016-06-18] MEDS: LISINOPRIL 10 MG TAB PO SCH (08:28)
[2016-06-18] MEDS: DORZOLAMIDE 2% OPTH DROPS LEFTEYE SCH ×2 (08:29→20:08)
[2016-06-18] MEDS ORDERED: LACTULOSE 20 GM/30 ML UDCUP PO PRN (09:39)
[2016-06-18] MEDS ORDERED: BISACODYL 10 MG SUPP PR PRN (09:39)
[2016-06-18] MEDS ORDERED: POLYETHYLENE GLYCOL 3350 17 GM PKT PO PRN (09:39)
[2016-06-18] MEDS ORDERED: MAGNESIUM HYDROXIDE 30 ML UDCUP PO PRN (09:39)
[2016-06-18] MEDS ORDERED: LISINOPRIL 10 MG TAB PO ONE (13:14)
--- NOTE | 2016-06-18 13:31 | PDINTPN ---
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 Brought to ED where CT revealed large intraparenchymal hemorrhage with shift. On arrival, patient was communicating normally, but developed partial expressive aphasia. Repeat head CT showed some increase in the ICH. No surgical intervention required, but started Cardene drip for BP control, Keppra for seizure prophylaxis, and hypertonic saline to achieve Na 145-155. * ICH- etiology unclear, though may be hypertensive since his SBP on admission was >200 (though no known hx of HTN and no previous meds). No evidence of salt wasting, though he has had intermittent boluses of 3% saline to minimize cerebral edema and keep ICP low. No major changes compared to 06/17, continue working with PT/OT * HTN- Started [id number] 06/17. Agree with increase to 20 and add norvasc. Target remains SBP <140 * Dispo: Will be appropriate for transfer to rehab once BP controlled. * 06/18/16 13:28 Subjective: Feels "better," - no events overnight. Objective: Vital Signs Temp Pulse Resp BP Pulse Ox 36.8 C 96 16 132/59 H 98 06/18/16 12:00 06/18/16 13:00 06/18/16 13:00 06/18/16 13:00 06/18/16 13:00 Laboratory Results 06/18/16 05:42 06/18/16 05:42 06/17/16 06/18/16 06/19/16 05:59 05:59 05:59 Intake Total 2768 2246 Output Total 2775 1500 150 Balance -7 746 -150 PT 13.3 SEC (12.0-15.0) 06/16/16 05:40 INR 1.02 (0.83-1.16) 06/16/16 05:40 Physical Exam - Physical Exam General Appearance: alert, no apparent distress EENT: PERRL/EOMI, No EOM palsy, No anisocoria Neck: full range of motion, supple Respiratory: lungs clear, normal breath sounds, No respiratory distress, No rales, No rhonchi Cardiac/Chest: normal peripheral pulses, regular rate, rhythm, No edema Abdomen: normal bowel sounds, non-tender, soft, No distended Skin: normal color, warm/dry, No cyanosis Lymphatic: no adenopathy Extremities: No pedal edema Neuro/Psych: motor weakness (RUE, RLE hemiparesis), speech abnormalities (mild- marked improvement from admission), No facial droop ICD10 Worksheet Patient Problems: Problems Problem Status Onset Cerebral hemorrhage Acute
[2016-06-18] MEDS: amLODIPine BESYLATE 5 MG TAB PO SCH (14:19)
--- NOTE | 2016-06-18 15:57 | HOSPPROG ---
Hospitalist Progress Note Assessment/Plan: * Intra-parenchymal hemorrhage with right hemiparesis and aphasia -edema with mass effect/shift -IV 3% saline per neurosurgery -serial head CT * HTN - SBP > 200 on admission -IV Cardene gtt - goal SBP < 140 -increase lisinopril, add norvasc -wean off cardene as able * Increase intra-ocular pressure -continue Trusopt Subjective: no new complaints. Objective: Vital Signs Temp Pulse Resp BP Pulse Ox 36.8 C 100 20 148/69 H 96 06/18/16 12:00 06/18/16 14:00 06/18/16 14:00 06/18/16 14:00 06/18/16 14:00 Laboratory Results 06/18/16 05:42 06/18/16 14:00 06/17/16 06/18/16 06/19/16 05:59 05:59 05:59 Intake Total 2768 2246 Output Total 2775 1500 150 Balance -7 746 -150 PT 13.3 SEC (12.0-15.0) 06/16/16 05:40 INR 1.02 (0.83-1.16) 06/16/16 05:40 d/w Dr. Shirley - need to wean off IV cardene tele reviewed - NSR Head CT - stable bleed - Physical Exam Constitutional: no apparent distress, appears nourished, not in pain Cardiovascular: regular rate and rhythym, no murmur, rub, or gallop Respiratory: no respiratory distress, no rales or rhonchi, clear to auscultation Gastrointestinal: normoactive bowel sounds, soft, non-tender abdomen, no palpable masses Skin: no rashes or abrasions, no fluctuance, no induration Neurologic: AAOx3, weakness (right 0/5), numbness, facial droop Psychiatric: interacting appropriately, flat affect, No encephalopathic, No agitated, No poor insight, No poor judgement, No poor memory ICD10 Worksheet Patient Problems: Problems Problem Status Onset Cerebral hemorrhage Acute
--- NOTE | 2016-06-18 16:24 | NEUROPROG ---
Assessment: 1. Large left intraparenchymal hemorrhage 35 minutes Floor time; over 50% in counseling with the patient and his and coordination of care. head CT without contrast shows continues to show stability. I have placed an order for MRI brain with without contrast to see if there is any underlying vascular malformation, mass or evidence of cerebral amyloid angiopathy. I discussed at length with the patient and his regarding differential diagnosis. The patient continues on intravenous antihypertensive medications. Once his blood pressure is controlled he will be cleared for placement into inpatient rehabilitation. I will follow up after MRI to assistant counsel the patient and his regarding the findings. Subjective: No new symptoms Objective: Vital Signs Temp Pulse Resp BP Pulse Ox 36.8 C 100 20 148/69 H 96 06/18/16 12:00 06/18/16 14:00 06/18/16 14:00 06/18/16 14:00 06/18/16 14:00 Laboratory Results 06/18/16 05:42 06/18/16 14:00 06/17/16 06/18/16 06/19/16 05:59 05:59 05:59 Intake Total 2768 2246 Output Total 2775 1500 150 Balance -7 746 -150 PT 13.3 SEC (12.0-15.0) 06/16/16 05:40 INR 1.02 (0.83-1.16) 06/16/16 05:40 significant mixed aphasia dense right jamie paresis Allergies/Adverse Reactions: No Known Allergies Allergy (Unverified 06/16/16 05:58)
[2016-06-18] MEDS ORDERED: GADOBUTROL 10 ML VIAL IVP ONE (18:17)
[2016-06-18] MEDS: SENNOSIDES/DOCUSATE SODIUM TAB PO SCH (20:10)
[2016-06-18] MEDS: ACETAMINOPHEN 325 MG TAB PO PRN (23:23)
[2016-06-19] MEDS: hydrALAZINE 20 MG/ML VIAL IVP PRN ×3 (03:05→21:08)
[2016-06-19 05:28] LABS: % IMMATURE GRANULYOCYTES 0.4 % (0.0-1.1); ABSOLUTE IMMATURE GRANULOCYTES 0.06 10^3/uL (0.00-0.10); ADD DIFF? NO; ADD MORPH? NO; ADD SCAN? NO; ATYPICAL LYMPHOCYTE FLAG 0 (0-99); FRAGMENT RBC FLAG 0 (0-99); HEMATOCRIT 40.5 % (40.0-51.0); HEMOGLOBIN 13.5 g/dL (13.7-17.5); LEFT SHIFT FLG 10 (0-99); LIPEMIA HEMOLYSIS FLAG 80 (0-99); MEAN CELL HEMOGLOBIN 29.9 pg (27.9-34.1); MEAN CELL HEMOGLOBIN CONCENTR. 33.3 g/dL (32.4-36.7); MEAN CELL VOLUME 89.6 fL (81.5-99.8); MEAN PLATELET VOLUME 10.9 fL (8.7-11.7); PLATELET CLUMPS FLAG 0 (0-99); PLATELET COUNT 222 10^3/uL (150-400); RED BLOOD CELL COUNT 4.52 10^6/uL (4.40-6.38); RED CELL DISTRIBUTION WIDTH 13.6 % (11.5-15.2)
[2016-06-19 05:40] LABS: ANION GAP 8 mEq/L (8-16); CALCIUM 8.5 mg/dL (8.5-10.4); CARBON DIOXIDE 22 mEq/l (22-31); CHLORIDE 111 mEq/L (97-110); CREATININE 0.7 mg/dL (0.7-1.3); GLOMERULAR FILTRATION RATE > 60; GLUCOSE 126 mg/dL (70-100); POTASSIUM 3.3 mEq/L (3.5-5.2); SODIUM 141 mEq/L (134-144)
--- NOTE | 2016-06-19 08:01 | NEUSURGPN ---
Assessment/Plan: 66y/o male with left IPH, aphasia and right sided neglect/paralysis -Repeat HCT 06/18 stable, will obtain next head CT in 2 weeks. MRI inconculssive for etiology given current hemorraghe. Can repeat in few weeks once improvement of bleed. 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 Garcia Subjective: Speech improved, right sided weakness stable, Denies any headaches, nausea, dizziness Objective: NAD A&Ox3 CN II-XII grossly intact. LUE and LLE 5/5, RUE and RLE 0/5 - Physician Discussed Patient with : Jose Neurosurgery Physical Exam - Vitals, I&O, Labs I and O 06/18/16 06/19/16 06/20/16 05:59 05:59 05:59 Intake Total 2246 2362 Output Total 1500 1350 Balance 746 1012 Intake: Oral (ml) 1090 1260 IV Infused (ml) 1156 1102 SODIUM Cl 3% 500 ml @ 15 320 346 mls/hr IV CONT LANE Rx#: [id number] niCARdipine 50 mg In Ns 836 756 250 ml @ Titrate IV AD LANE Rx#:[id number] Output: Urine (ml) 1500 1350 Urinal 1500 1350 Other: Number of Voids Urinal 1 1 Vital Signs Temp Pulse Resp BP Pulse Ox 37.2 C 99 20 142/68 H 96 06/19/16 05:00 06/19/16 06:00 06/19/16 06:00 06/19/16 06:00 06/19/16 06:00 Laboratory Results 06/19/16 05:10 06/19/16 05:10 ICD10 Worksheet Patient Problems: Problems Problem Status Onset Cerebral hemorrhage Acute
[2016-06-19] MEDS: SENNOSIDES/DOCUSATE SODIUM TAB PO SCH ×2 (08:35→20:10)
[2016-06-19] MEDS: amLODIPine BESYLATE 5 MG TAB PO SCH (08:36)
[2016-06-19] MEDS ORDERED: LISINOPRIL 20 MG TAB PO SCH (09:00)
[2016-06-19] MEDS: DORZOLAMIDE 2% OPTH DROPS LEFTEYE SCH ×2 (09:35→20:10)
[2016-06-19] MEDS ORDERED: LISINOPRIL 20 MG TAB PO ONE (10:46)
[2016-06-19] MEDS ORDERED: SODIUM CL NASAL 45 ML BTL EACHNARE PRN (10:48)
[2016-06-19] MEDS ORDERED: POTASSIUM CL 20 MEQ TAB PO ONE (10:49)
[2016-06-19] MEDS ORDERED: niCARdipine/NACL 200 ML IV SCH (12:30)
--- NOTE | 2016-06-19 12:51 | NEUROPROG ---
Assessment: 1. Large left intraparenchymal hemorrhage 35 minutes Floor time; over 50% in counseling with the patient and his and sons and coordination of care. MRI brain with without contrast and MRA head do not show any explanation for the patient's left sided intraparenchymal hemorrhage. There is no vascular malformation, underlying mass or evidence of cerebral amyloid angiopathy noted by Radiology on susceptibility weighted imaging. The patient continues on intravenous antihypertensive medications. Once his blood pressure is controlled he will be cleared for placement into inpatient rehabilitation. I did obtain additional history that in the background, the patient has had elevated systolic pressures that he did not have treated back at home in [place] in the 140s and 50s for some time. Therefore, he likely had occult hypertension which culminated in this intercerebral hemorrhage. We discussed the importance of tight blood pressure control going forward. He will need to be discharged on some type of oral antihypertensive medication. He will have close follow-up with his PCP back at home for BP management. the patient will stay off any type of anti thrombotic medication indefinitely. He will follow-up with the neurovascular neurologist in [place] once he eventually gets back home. In the interim, he will be inpatient rehabilitation here in [place] no further recommendations now. We will sign off , and follow-up p.r.n. Subjective: No new symptoms Objective: Vital Signs Temp Pulse Resp BP Pulse Ox 36.5 C 103 H 20 139/70 H 96 06/19/16 08:00 06/19/16 10:00 06/19/16 10:00 06/19/16 10:00 06/19/16 10:00 Laboratory Results 06/19/16 05:10 06/19/16 05:10 06/18/16 06/19/16 06/20/16 05:59 05:59 05:59 Intake Total 2246 2362 Output Total 1500 1350 300 Balance 746 1012 -300 PT 13.3 SEC (12.0-15.0) 06/16/16 05:40 INR 1.02 (0.83-1.16) 06/16/16 05:40 expressive aphasia is improving patient was somewhat fluent today dense right jamie paresis not improved Allergies/Adverse Reactions: No Known Allergies Allergy (Unverified 06/16/16 05:58)
--- NOTE | 2016-06-19 15:17 | HOSPPROG ---
Hospitalist Progress Note Assessment/Plan: Assessment: 66-year-old male presenting with acute intraparenchymal hemorrhage in the setting of hypertensive emergency Plan: 1. Intra-parenchymal hemorrhage. Most likely provoked by hypertensive emergency , resulting in right hemiplegia and aphasia -head imaging demonstrating edema and mass effect with midline shift -status post 3% saline per Neurosurgery, discontinued -controlling systolic blood pressure with a goal less than 140 -neurosurgery recommends outpatient head CT in 2 weeks time -MRA not demonstrating any focal cause -will require PT and OT at inpatient rehab 2. Hypertensive emergency. Evidenced by a systolic blood pressure greater than 200 with intracranial hemorrhage -goal systolic blood pressure less than 140, continue on IV Cardene drip in ICU -increasing lisinopril to 40 mg daily, continue Norvasc 5 mg daily -continue attempts to wean off of Cardene as able 3. Increased intra-ocular pressure -continue Trusopt Diet. Regular Prophylaxis. High risk patient, SCDs when in bed Code. Full Disposition. Anticipated discharge is 06/21, pending ability to wean off of Cardene drip. Subjective: Reports frustration with speaking Objective: Vital Signs Temp Pulse Resp BP Pulse Ox 37.1 C 101 H 21 H 139/68 H 96 06/19/16 12:00 06/19/16 14:00 06/19/16 14:00 06/19/16 14:00 06/19/16 14:00 Laboratory Results 06/19/16 05:10 06/19/16 05:10 06/18/16 06/19/16 06/20/16 05:59 05:59 05:59 Intake Total 2246 2362 Output Total 1500 1350 300 Balance 746 1012 -300 PT 13.3 SEC (12.0-15.0) 06/16/16 05:40 INR 1.02 (0.83-1.16) 06/16/16 05:40 - Physical Exam Constitutional: appears nourished, not in pain, No no apparent distress (Mild), No uncomfortable Cardiovascular: systolic murmur (2/6 at the sternum and apex), tachycardia, other (Bounding carotid pulses in the), No irregularly irregular Respiratory: no respiratory distress, no rales or rhonchi, clear to auscultation Gastrointestinal: normoactive bowel sounds, soft, non-tender abdomen, no palpable masses Neurologic: AAOx3, sensation intact bilaterally, weakness (0/5 strength in the right upper extremity, right lower extremity, right accessary nerve, right facial palsy, right SCM palsy) Psychiatric: interacting appropriately, not encephalopathic, thought process linear, anxious ICD10 Worksheet Patient Problems: Problems Problem Status Onset Cerebral hemorrhage Acute
--- NOTE | 2016-06-19 16:13 | PDINTPN ---
Executive Pilot Progress Note Assessment/Plan: Assessment/plan: 66 M in good health visiting from [facility] woke with sudden onset right-sided paralysis. Brought to ED where CT revealed large intraparenchymal hemorrhage with shift. On arrival, patient was communicating normally, but developed partial expressive aphasia. Repeat head CT showed some increase in the ICH. No surgical intervention required, but started Cardene drip for BP control, Keppra for seizure prophylaxis, and hypertonic saline to achieve Na 145-155. * ICH- etiology unclear, though may be hypertensive since his SBP on admission was >200 (though no known hx of HTN and no previous meds). No evidence of salt wasting, though he has had intermittent boluses of 3% saline to minimize cerebral edema and keep ICP low. No major changes compared to 06/17, continue working with PT/OT * HTN- Still dependent on drip. Agree with maximizing DICKSON. * Dispo: Will be appropriate for transfer to rehab once BP controlled. * 06/18/16 13:28 06/19/16 16:11 Subjective: No events overnight. Remains on nicardipine drip Objective: Vital Signs Temp Pulse Resp BP Pulse Ox 36.7 C 98 21 H 134/64 H 97 06/19/16 16:00 06/19/16 16:00 06/19/16 16:00 06/19/16 16:00 06/19/16 16:00 Laboratory Results 06/19/16 05:10 06/19/16 05:10 06/18/16 06/19/16 06/20/16 05:59 05:59 05:59 Intake Total 2246 2362 Output Total 1500 1350 300 Balance 746 1012 -300 PT 13.3 SEC (12.0-15.0) 06/16/16 05:40 INR 1.02 (0.83-1.16) 06/16/16 05:40 Physical Exam - Physical Exam General Appearance: alert, no apparent distress EENT: PERRL/EOMI, normal ENT inspection Neck: full range of motion, supple Respiratory: lungs clear, normal breath sounds, No respiratory distress, No rales, No rhonchi Cardiac/Chest: normal peripheral pulses, regular rate, rhythm, No edema, No JVD Abdomen: normal bowel sounds, non-tender, soft, No distended Skin: normal color, warm/dry Lymphatic: no adenopathy Extremities: No pedal edema 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
[2016-06-19] MEDS: niCARdipine/NACL 200 ML IV SCH ×3 (19:24→23:22)
[2016-06-20] MEDS: ACETAMINOPHEN 325 MG TAB PO PRN (06:05)
[2016-06-20 06:09] LABS: % IMMATURE GRANULYOCYTES 0.3 % (0.0-1.1); ABSOLUTE IMMATURE GRANULOCYTES 0.05 10^3/uL (0.00-0.10); ADD DIFF? NO; ADD MORPH? NO; ADD SCAN? NO; ATYPICAL LYMPHOCYTE FLAG 0 (0-99); FRAGMENT RBC FLAG 0 (0-99); HEMOGLOBIN 13.2 g/dL (13.7-17.5); LEFT SHIFT FLG 10 (0-99); LIPEMIA HEMOLYSIS FLAG 90 (0-99); MEAN CELL HEMOGLOBIN 30.1 pg (27.9-34.1); MEAN CELL HEMOGLOBIN CONCENTR. 33.8 g/dL (32.4-36.7); PLATELET CLUMPS FLAG 0 (0-99); PLATELET COUNT 205 10^3/uL (150-400); RED BLOOD CELL COUNT 4.38 10^6/uL (4.40-6.38); RED CELL DISTRIBUTION WIDTH 13.2 % (11.5-15.2)
[2016-06-20 06:17] LABS: ANION GAP 6 mEq/L (8-16); CALCIUM 8.3 mg/dL (8.5-10.4); CARBON DIOXIDE 24 mEq/l (22-31); CHLORIDE 109 mEq/L (97-110); CREATININE 0.8 mg/dL (0.7-1.3); GLOMERULAR FILTRATION RATE > 60; GLUCOSE 133 mg/dL (70-100); POTASSIUM 3.6 mEq/L (3.5-5.2); SODIUM 139 mEq/L (134-144)
--- NOTE | 2016-06-20 08:26 | NEUSURGPN ---
Assessment/Plan: 66y/o male with left IPH, aphasia and right sided neglect/paralysis, neuro stable today -Repeat HCT 06/18 stable, will obtain next head CT in 2 weeks. MRI inconclusive for etiology given current hemorrhage. Can repeat in few weeks once improvement of bleed. 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 Garcia Subjective: Denies any headache, nausea, speech stable Objective: NAD EOMI, PERRLA A&Ox3 MAEx4 5/5 and in LUE and LLE. 0/5 in RUE and RLE - Physician Discussed Patient with : Jose Neurosurgery Physical Exam - Vitals, I&O, Labs I and O 06/19/16 06/20/16 06/21/16 05:59 05:59 05:59 Intake Total 2 2004 Output Total 1350 1185 Balance 1012 820 Intake: Oral (ml) 1260 620 IV Infused (ml) 1102 1385 SODIUM Cl 3% 500 ml @ 15 346 mls/hr IV CONT LANE Rx#: [id number] niCARdipine 50 mg In Ns 756 1385 250 ml @ Titrate IV AD LANE Rx#:[id number] Output: Urine (ml) 1350 1185 Urinal 1350 1185 Other: Intake Quantity Yes Sufficient Number of Voids Urinal 1 1 Vital Signs Temp Pulse Resp BP Pulse Ox 38.1 C 100 18 138/72 H 95 06/20/16 06:00 06/20/16 06:00 06/20/16 06:00 06/20/16 06:00 06/20/16 06:00 Laboratory Results 06/20/16 05:55 06/20/16 05:55 ICD10 Worksheet Patient Problems: Problems Problem Status Onset Cerebral hemorrhage Acute
[2016-06-20] MEDS: DORZOLAMIDE 2% OPTH DROPS LEFTEYE SCH ×2 (09:02→21:16)
[2016-06-20] MEDS: amLODIPine BESYLATE 5 MG TAB PO SCH (09:05)
[2016-06-20] MEDS: LISINOPRIL 40 MG TAB PO SCH (09:06)
[2016-06-20] MEDS: SENNOSIDES/DOCUSATE SODIUM TAB PO SCH ×2 (09:06→21:25)
[2016-06-20] MEDS ORDERED: POTASSIUM CL 20 MEQ TAB PO ONE (10:18)
[2016-06-20] MEDS ORDERED: amLODIPine BESYLATE 5 MG TAB PO ONE (10:30)
--- NOTE | 2016-06-20 13:41 | HOSPPROG ---
Hospitalist Progress Note Assessment/Plan: Assessment: 66-year-old male presenting with acute intraparenchymal hemorrhage in the setting of hypertensive emergency, c/b SIRS Plan: 1. Intra-parenchymal hemorrhage. Most likely provoked by hypertensive emergency , resulting in right hemiplegia and aphasia -head imaging demonstrating edema and mass effect with midline shift, stabilized -status post 3% saline per Neurosurgery, discontinued -controlling systolic blood pressure with a goal less than 140 -neurosurgery recommends outpatient head CT in 2 weeks time, emergent if neuro changes -MRA not demonstrating any focal cause -will require PT and OT at inpatient rehab 2. Hypertensive emergency. Evidenced by a systolic blood pressure greater than 200 with intracranial hemorrhage -goal systolic blood pressure less than 140, continue on IV Cardene drip in ICU -cont lisinopril 40 mg daily, increase Norvasc 10 mg daily -continue attempts to wean off of Cardene as able -if continues to require cardene tomorrow, will add bblocker 3. Increased intra-ocular pressure -continue Trusopt 4. SIRS. Acute, new problem, further w/u indicated. Tachycardia + leukocytosis, unclear etiology, no infxn symptoms, personally interpreted tele as sinus tach -possible causes include bowel distension w/ constipation vs. PE -LE US w/ superficial thrombosis in saphenous w/o overt DVT -get CTA to r/o PE, if present will have IR place IVC filter -if CTA neg, get UA -monitor CBC 5. Constipation. Give oral laxatives and bisacodyl suppository today, if no BM, mag citrate tomorrow Diet. Regular Prophylaxis. High risk patient, SCDs when in bed Code. Full Disposition. Anticipated discharge is 06/21 vs. 06/22, pending ability to wean off of Cardene drip. Subjective: Patient reports he remains constipated Objective: Vital Signs Temp Pulse Resp BP Pulse Ox 38.1 C 101 H 21 H 145/69 H 98 06/20/16 06:00 06/20/16 12:00 06/20/16 12:00 06/20/16 12:00 06/20/16 12:00 Laboratory Results 06/20/16 05:55 06/20/16 05:55 06/19/16 06/20/16 06/21/16 05:59 05:59 05:59 Intake Total 2362 2004 Output Total 1350 1185 Balance 1012 820 PT 13.3 SEC (12.0-15.0) 06/16/16 05:40 INR 1.02 (0.83-1.16) 06/16/16 05:40 - Pending Discharge Pending Discharge Within 48 Hours: Yes Pending Discharge Date: 06/22/16 Pending Discharge Time: 11:00 - Physical Exam Constitutional: no apparent distress, appears nourished, not in pain, No uncomfortable Cardiovascular: systolic murmur (II/ at sternum), tachycardia, edema (RLE trace), other (bounding pulses), No irregularly irregular Respiratory: no respiratory distress, no rales or rhonchi, clear to auscultation Gastrointestinal: distension (moderately), No normoactive bowel sounds ( hypoactive bowel sounds), No tenderness, No guarding Neurologic: AAOx3, sensation intact bilaterally, weakness (0/5 motor RUE/RLE), facial droop (R face) Psychiatric: interacting appropriately, not anxious, not encephalopathic, thought process linear ICD10 Worksheet Patient Problems: Problems Problem Status Onset Cerebral hemorrhage Acute
[2016-06-20] MEDS ORDERED: BISACODYL 5 MG EC TAB PO ONE (13:58)
[2016-06-20] MEDS ORDERED: BISACODYL 5 MG EC TAB PO PRN (13:58)
[2016-06-20] MEDS ORDERED: IOPAMIDOL (ISOVUE 370) 100 ML BTL IV ONE (15:11)
--- NOTE | 2016-06-20 15:59 | PDINTPN ---
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 Brought to ED where CT revealed large intraparenchymal hemorrhage with shift. On arrival, patient was communicating normally, but developed partial expressive aphasia. Repeat head CT showed some increase in the ICH. No surgical intervention required, but started Cardene drip for BP control, Keppra for seizure prophylaxis, and hypertonic saline to achieve Na 145-155. * ICH- etiology unclear, though may be hypertensive since his SBP on admission was >200 (though no known hx of HTN and no previous meds). Neuro exam largely unchanged. Cont with PT/OT * HTN- Still dependent on drip. Agree with maximizing DICKSON. Norvasc increased today. Beta cande? * Dispo: Will be appropriate for transfer to rehab once BP controlled. * Subjective: Stable overnight but remains on nicardipine drip Objective: Vital Signs Temp Pulse Resp BP Pulse Ox 38.1 C 108 H 24 H 145/76 H 96 06/20/16 06:00 06/20/16 15:00 06/20/16 15:00 06/20/16 15:00 06/20/16 15:00 Laboratory Results 06/20/16 05:55 06/20/16 05:55 06/19/16 06/20/16 06/21/16 05:59 05:59 05:59 Intake Total 2362 2004 Output Total 1350 1185 250 Balance 1012 820 -250 PT 13.3 SEC (12.0-15.0) 06/16/16 05:40 INR 1.02 (0.83-1.16) 06/16/16 05:40 Physical Exam - Physical Exam General Appearance: alert, no apparent distress EENT: PERRL/EOMI, other (slight right facial droop) Neck: supple Respiratory: lungs clear, normal breath sounds, No respiratory distress Cardiac/Chest: normal peripheral pulses, regular rate, rhythm, No edema, No JVD Abdomen: normal bowel sounds, non-tender, soft, No distended Skin: normal color, warm/dry Lymphatic: no adenopathy Extremities: No pedal edema Neuro/Psych: alert, normal mood/affect, oriented x 3, motor weakness (RUE, RLE) ICD10 Worksheet Patient Problems: Problems Problem Status Onset Cerebral hemorrhage Acute
[2016-06-21] MEDS: ACETAMINOPHEN 325 MG TAB PO PRN (01:18)
[2016-06-21 03:56] LABS: COLOR YELLOW; LEUKOCYTE ESTERASE,URINE NEGATIVE (NEGATIVE); NITRITE,URINE NEGATIVE (NEGATIVE)
[2016-06-21 06:48] LABS: % IMMATURE GRANULYOCYTES 0.4 % (0.0-1.1); ABSOLUTE IMMATURE GRANULOCYTES 0.05 10^3/uL (0.00-0.10); ADD DIFF? NO; ADD MORPH? NO; ADD SCAN? NO; ATYPICAL LYMPHOCYTE FLAG 0 (0-99); FRAGMENT RBC FLAG 0 (0-99); HEMATOCRIT 39.9 % (40.0-51.0); HEMOGLOBIN 13.8 g/dL (13.7-17.5); LEFT SHIFT FLG 20 (0-99); LIPEMIA HEMOLYSIS FLAG 90 (0-99); MEAN CELL HEMOGLOBIN 29.7 pg (27.9-34.1); MEAN CELL HEMOGLOBIN CONCENTR. 34.6 g/dL (32.4-36.7); MEAN PLATELET VOLUME 10.9 fL (8.7-11.7); PLATELET CLUMPS FLAG 10 (0-99); PLATELET COUNT 205 10^3/uL (150-400); RED BLOOD CELL COUNT 4.64 10^6/uL (4.40-6.38)
--- NOTE | 2016-06-21 07:00 | NEUSURGPN ---
Assessment/Plan: Assessment: 66 y/o male with left IPH, aphasia and right sided neglect/paralysis Plan: -neuro stable with continued right sided paralysis -repeat HCT 06/18 stable, will obtain next head CT in 2 weeks. MRI inconclusive for etiology given current hemorrhage. 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 Garcia Subjective: Awake and alert. Pt with continued aphasia issues. Follows commands. Objective: NAD EOMI, PERRLA A&Ox3 BURDICK 5/5 and in LUE and LLE. 0/5 in RUE and RLE-able to contract right quad slightly Neuro Check Frequency: per routine Urinary Catheter in Place: No - Physician Discussed Patient with : Jose Neurosurgery Physical Exam - Vitals, I&O, Labs I and O 06/20/16 06/21/16 06/22/16 05:59 05:59 05:59 Intake Total 2004 2153 Output Total 1185 1150 Balance 820 1004 Intake: Oral (ml) 620 1340 IV Infused (ml) 1385 814 niCARdipine 50 mg In Ns 1385 250 ml @ Titrate IV AD LANE Rx#:[id number] niCARdipine 50 mg In Ns 814 250 ml @ Titrate IV AD LANE Rx#:[id number] Output: Urine (ml) 1185 1150 Incontinence 150 Urinal 1185 1000 Other: Intake Quantity Yes Sufficient Number of Voids Incontinence 1 Urinal 1 2 Vital Signs Temp Pulse Resp BP Pulse Ox 36.4 C 93 24 H 140/70 H 93 06/21/16 04:00 06/21/16 04:00 06/21/16 04:00 06/21/16 04:00 06/21/16 04:00 Laboratory Results 06/21/16 06:30 ICD10 Worksheet Patient Problems: Problems Problem Status Onset Cerebral hemorrhage Acute
[2016-06-21 07:09] LABS: ANION GAP 7 mEq/L (8-16); CARBON DIOXIDE 25 mEq/l (22-31); CHLORIDE 106 mEq/L (97-110); CREATININE 0.7 mg/dL (0.7-1.3); GLOMERULAR FILTRATION RATE > 60; GLUCOSE 126 mg/dL (70-100); MAGNESIUM 1.9 mg/dL (1.6-2.3); POTASSIUM 3.5 mEq/L (3.5-5.2); SODIUM 138 mEq/L (134-144)
[2016-06-21] MEDS ORDERED: POTASSIUM CL 20 MEQ TAB PO ONE (08:38)
[2016-06-21] MEDS ORDERED: MAGNESIUM CITRATE 300 ML BOTTLE PO ONE (09:38)
[2016-06-21] MEDS ORDERED: BISACODYL 5 MG EC TAB PO ONE (09:39)
[2016-06-21] MEDS: amLODIPine BESYLATE 5 MG TAB PO SCH (09:49)
[2016-06-21] MEDS: DORZOLAMIDE 2% OPTH DROPS LEFTEYE SCH ×2 (09:50→20:16)
[2016-06-21] MEDS: LISINOPRIL 40 MG TAB PO SCH (09:50)
[2016-06-21] MEDS: SENNOSIDES/DOCUSATE SODIUM TAB PO SCH (09:50)
[2016-06-21] MEDS: LABETALOL HCL 100 MG TAB PO SCH ×2 (09:50→20:16)
[2016-06-21] MEDS: NS W/ 20 KCl/L 1,000 ML IV SCH (11:00)
--- NOTE | 2016-06-21 15:15 | HOSPPROG ---
Hospitalist Progress Note Assessment/Plan: Assessment: 66-year-old male presenting with acute intraparenchymal hemorrhage in the setting of hypertensive emergency, c/b SIRS and probable ileus Plan: 1. Intra-parenchymal hemorrhage. Most likely provoked by hypertensive emergency , resulting in right hemiplegia and aphasia -head imaging demonstrating edema and mass effect with midline shift, stabilized -status post 3% saline per Neurosurgery, discontinued -controlling systolic blood pressure with a goal less than 140 -neurosurgery recommends outpatient head CT in 2 weeks time, emergent if neuro changes -MRA not demonstrating any focal cause -will require PT and OT at inpatient rehab 2. Hypertensive emergency. Evidenced by a systolic blood pressure greater than 200 with intracranial hemorrhage -goal systolic blood pressure less than 140, continue on IV Cardene drip in ICU -cont lisinopril 40 mg daily, continue Norvasc 10 mg daily, add labetalol 100 mg twice daily and up titrate -continue attempts to wean off of Cardene as able 3. Increased intra-ocular pressure -continue Trusopt 4. SIRS. Acute,tachycardia + leukocytosis, most likely 2/2 ileus -no e/o PE on CTA -LE US w/ superficial thrombosis in saphenous w/o overt DVT -cont IVF -monitor CBC 5. Probable ileus. Present on x-ray, no BMs -counseled patient and about need to be aggressive with bowel regimen today 6. Atelectasis. Present on CT, start IS Diet. Regular Prophylaxis. High risk patient, SCDs when in bed Code. Full Disposition. Anticipated discharge is 06/22, pending ability to wean off of Cardene drip. Subjective: Patient reports increasing abdominal distension, no bowel movements Objective: Vital Signs Temp Pulse Resp BP Pulse Ox 36.7 C 90 30 H 123/68 H 97 06/21/16 12:00 06/21/16 12:00 06/21/16 12:00 06/21/16 12:00 06/21/16 12:00 Laboratory Results 06/21/16 06:30 06/21/16 06:30 06/20/16 06/21/16 06/22/16 05:59 05:59 05:59 Intake Total 20044 Output Total 1185 1150 Balance 820 1004 PT 13.3 SEC (12.0-15.0) 06/16/16 05:40 INR 1.02 (0.83-1.16) 06/16/16 05:40 - Time Spent With Patient Time Spent with Patient: greater than 35 minutes Time Spent with Patient: Greater than 35 minutes spent on this patients care, greater than 50% of time spent counseling, educating, and coordinating care regarding the above mentioned plan. - Physical Exam Constitutional: no apparent distress, uncomfortable Cardiovascular: tachycardia, edema (Trace right lower extremity), No systolic murmur, No irregularly irregular Respiratory: reduced air movement (Bilateral bases), No expiratory wheeze, No inspiratory crackles, No bronchial breath sounds Gastrointestinal: normoactive bowel sounds, tenderness (Mild to moderate depth palpation), distension (Moderate) Neurologic: AAOx3, other (0/5 strength in the right upper and right lower extremity) Psychiatric: interacting appropriately, not anxious, not encephalopathic, thought process linear ICD10 Worksheet Patient Problems: Problems Problem Status Onset Cerebral hemorrhage Acute
[2016-06-22] MEDS: hydrALAZINE 20 MG/ML VIAL IVP PRN ×2 (00:19→02:04)
[2016-06-22] MEDS: SENNOSIDES/DOCUSATE SODIUM TAB PO SCH ×3 (00:42→19:44)
[2016-06-22] MEDS: NS W/ 20 KCl/L 1,000 ML IV SCH (05:13)
[2016-06-22 05:38] LABS: % IMMATURE GRANULYOCYTES 0.8 % (0.0-1.1); ABSOLUTE IMMATURE GRANULOCYTES 0.11 10^3/uL (0.00-0.10); ADD DIFF? NO; ADD MORPH? NO; ADD SCAN? NO; ATYPICAL LYMPHOCYTE FLAG 0 (0-99); FRAGMENT RBC FLAG 0 (0-99); HEMATOCRIT 39.4 % (40.0-51.0); HEMOGLOBIN 13.6 g/dL (13.7-17.5); LEFT SHIFT FLG 40 (0-99); LIPEMIA HEMOLYSIS FLAG 90 (0-99); MEAN CELL HEMOGLOBIN 29.8 pg (27.9-34.1); MEAN CELL HEMOGLOBIN CONCENTR. 34.5 g/dL (32.4-36.7); MEAN CELL VOLUME 86.2 fL (81.5-99.8); MEAN PLATELET VOLUME 11.4 fL (8.7-11.7); PLATELET CLUMPS FLAG 20 (0-99); PLATELET COUNT 194 10^3/uL (150-400); RED BLOOD CELL COUNT 4.57 10^6/uL (4.40-6.38); RED CELL DISTRIBUTION WIDTH 13.1 % (11.5-15.2)
[2016-06-22 05:50] LABS: ANION GAP 8 mEq/L (8-16); CALCIUM 8.1 mg/dL (8.5-10.4); CARBON DIOXIDE 23 mEq/l (22-31); CHLORIDE 106 mEq/L (97-110); CREATININE 0.7 mg/dL (0.7-1.3); GLOMERULAR FILTRATION RATE > 60; GLUCOSE 134 mg/dL (70-100); SODIUM 137 mEq/L (134-144)
--- NOTE | 2016-06-22 07:58 | NEUSURGPN ---
Assessment/Plan: Assessment: 66 y/o male with left IPH, aphasia and right sided neglect/paralysis Plan: -neuro stable with continued right sided paralysis -no new events per RN -repeat HCT 06/18 stable, will obtain next head CT in 2 weeks-rx on chart. MRI inconclusive for etiology given current hemorrhage. Can repeat down the road once acute blood diminishes to ensure no other underlying causes. 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 Garcia-ok to sign off at this time Subjective: Pt resting in NAD. No new events or issues per RN. Objective: NAD EOMI, A&Ox3 No changes in motor BURDICK 5/5 and in LUE and LLE. 0/5 in RUE and RLE-able to contract right quad slightly Neuro Check Frequency: per routine Urinary Catheter in Place: No - Physician Discussed Patient with : Jose Neurosurgery Physical Exam - Vitals, I&O, Labs I and O 06/21/16 06/22/16 06/23/16 05:59 05:59 05:59 Intake Total 2154 1516 Output Total 1150 2300 Balance 1004 -784 Intake: Oral (ml) 1340 500 IV Infused (ml) 814 1016 NS W/ 20 KCl/L 1,000 ml @ 931 50 mls/hr IV CONT LANE Rx #:[id number] niCARdipine 50 mg In Ns 814 85 250 ml @ Titrate IV AD LANE Rx#:[id number] Output: Urine (ml) 1150 2300 Incontinence 150 1200 Urinal 1000 1100 Other: Number of Voids Incontinence 1 1 Urinal 2 1 Number of Stools Incontinence 1 Urinal 5 Vital Signs Temp Pulse Resp BP Pulse Ox 37.2 C 94 22 H 146/72 H 93 06/22/16 04:00 06/22/16 04:00 06/22/16 04:00 06/22/16 04:00 06/22/16 04:00 Laboratory Results 06/22/16 05:15 06/22/16 05:15 ICD10 Worksheet Patient Problems: Problems Problem Status Onset Cerebral hemorrhage Acute
[2016-06-22] MEDS: amLODIPine BESYLATE 5 MG TAB PO SCH (08:33)
[2016-06-22] MEDS: LISINOPRIL 40 MG TAB PO SCH (08:33)
[2016-06-22] MEDS ORDERED: POTASSIUM CL 20 MEQ TAB PO SCH (09:00)
[2016-06-22] MEDS: LABETALOL HCL 100 MG TAB PO SCH ×2 (09:21→20:04)
[2016-06-22] MEDS: DORZOLAMIDE 2% OPTH DROPS LEFTEYE SCH ×2 (09:28→20:10)
--- NOTE | 2016-06-22 15:02 | HOSPPROG ---
Hospitalist Progress Note Assessment/Plan: Assessment: 66-year-old male presenting with acute intraparenchymal hemorrhage in the setting of hypertensive emergency, c/b SIRS and probable ileus Plan: 1. Intra-parenchymal hemorrhage. Most likely provoked by hypertensive emergency , resulting in right hemiplegia and aphasia -head imaging demonstrating edema and mass effect with midline shift, stabilized -status post 3% saline -SBP goal less than 140 -neurosurgery recommends outpatient head CT in 1-2 weeks time, emergent if neuro changes -MRA not demonstrating any focal cause -will require PT and OT at inpatient rehab 2. Hypertensive emergency. Evidenced by a systolic blood pressure greater than 200 with intracranial hemorrhage -goal systolic blood pressure less than 140, increasing PO labetolol to 200mg bid and gauge effect -cont lisinopril 40 mg daily, continue Norvasc 10 mg daily 3. Increased intra-ocular pressure -continue Trusopt 4. SIRS. Acute,tachycardia + leukocytosis, most likely 2/2 ileus -no e/o PE on CTA -LE US w/ superficial thrombosis in saphenous w/o overt DVT -WBC remains elevated despite BM, monitor additional 24hrs to ensure no other insidious etiology 5. Probable ileus. Present on x-ray, resolved w/ laxatives 6. Atelectasis. Present on CT, start IS Diet. Regular Prophylaxis. High risk patient, SCDs when in bed Code. Full Disposition. Anticipated discharge is 06/23, pending ability to stabilize BP and ensure no evolving infxn w/ elevated WBC Subjective: counseled patient and his regarding his polydipsia, encouraged fluid restriction at 2 L per day, okay to drink Ensure and smoothies Objective: Vital Signs Temp Pulse Resp BP Pulse Ox 36.9 C 91 20 156/85 H 96 06/22/16 08:00 06/22/16 08:00 06/22/16 08:00 06/22/16 08:00 06/22/16 08:00 Laboratory Results 06/22/16 05:15 06/22/16 05:15 06/21/16 06/22/16 06/23/16 05:59 05:59 05:59 Intake Total 2154 1516 Output Total 1150 2300 700 Balance 1004 -784 -700 PT 13.3 SEC (12.0-15.0) 06/16/16 05:40 INR 1.02 (0.83-1.16) 06/16/16 05:40 - Time Spent With Patient Time Spent with Patient: greater than 35 minutes Time Spent with Patient: Greater than 35 minutes spent on this patients care, greater than 50% of time spent counseling, educating, and coordinating care regarding the above mentioned plan. - Physical Exam Cardiovascular: regular rate and rhythym, no murmur, rub, or gallop Respiratory: no respiratory distress, no rales or rhonchi, clear to auscultation Gastrointestinal: normoactive bowel sounds, soft, non-tender abdomen, no palpable masses Neurologic: AAOx3 Psychiatric: interacting appropriately, not anxious, not encephalopathic, thought process linear ICD10 Worksheet Patient Problems: Problems Problem Status Onset Cerebral hemorrhage Acute
[2016-06-23 05:38] LABS: % IMMATURE GRANULYOCYTES 0.4 % (0.0-1.1); ABSOLUTE IMMATURE GRANULOCYTES 0.06 10^3/uL (0.00-0.10); ADD DIFF? NO; ADD MORPH? NO; ADD SCAN? NO; ATYPICAL LYMPHOCYTE FLAG 10 (0-99); FRAGMENT RBC FLAG 0 (0-99); HEMATOCRIT 37.2 % (40.0-51.0); HEMOGLOBIN 12.8 g/dL (13.7-17.5); LEFT SHIFT FLG 20 (0-99); LIPEMIA HEMOLYSIS FLAG 90 (0-99); MEAN CELL HEMOGLOBIN 29.6 pg (27.9-34.1); MEAN CELL HEMOGLOBIN CONCENTR. 34.4 g/dL (32.4-36.7); MEAN CELL VOLUME 86.1 fL (81.5-99.8); MEAN PLATELET VOLUME 11.4 fL (8.7-11.7); PLATELET CLUMPS FLAG 20 (0-99); PLATELET COUNT 179 10^3/uL (150-400); RED BLOOD CELL COUNT 4.32 10^6/uL (4.40-6.38); RED CELL DISTRIBUTION WIDTH 12.8 % (11.5-15.2)
[2016-06-23 05:57] LABS: ANION GAP 8 mEq/L (8-16); CALCIUM 8.1 mg/dL (8.5-10.4); CARBON DIOXIDE 25 mEq/l (22-31); CHLORIDE 106 mEq/L (97-110); CREATININE 0.7 mg/dL (0.7-1.3); GLOMERULAR FILTRATION RATE > 60; GLUCOSE 117 mg/dL (70-100); MAGNESIUM 2.1 mg/dL (1.6-2.3); SODIUM 139 mEq/L (134-144)
[2016-06-23 07:53] VITALS: RESP 21; TEMP 98.4; O2SAT 97
[2016-06-23] MEDS: LISINOPRIL 40 MG TAB PO SCH (08:34)
[2016-06-23] MEDS: amLODIPine BESYLATE 5 MG TAB PO SCH (08:34)
[2016-06-23] MEDS: DORZOLAMIDE 2% OPTH DROPS LEFTEYE SCH (08:35)
[2016-06-23] MEDS ORDERED: LABETALOL HCL 100 MG TAB PO SCH (09:00)
[2016-06-23] MEDS: SENNOSIDES/DOCUSATE SODIUM TAB PO SCH (09:37)
--- NOTE | 2016-06-23 12:23 | PDIAF ---
- Diagnosis Diagnosis: Intraparenchymal Hemorrhage, HTN emergency, Superficial Thrombophlebitis Code Status: Full Code - Medication Management Discharge Medications: Medications to Continue on Transfer Dorzolamide 2% [Trusopt 2% (*)] 1 drops LEFTEYE BID 06/16/16 [Last Taken ] Herbals/Supplements -Info Only 1 ea PO DAILY18 06/16/16 [Last Taken Unknown] Multivitamins [Multivitamin (*)] 1 each PO DAILY 06/16/16 [Last Taken Unknown] Acetaminophen [Tylenol 325mg (*)] 650 mg PO Q4 PRN #0 tab 06/23/16 [Last Taken Unknown] Bisacodyl [Bisacodyl (*)] 5 mg PO PRN PRN #0 tab 06/23/16 [Last Taken Unknown] Labetalol HCl [Trandate 100 mg (*)] 300 mg PO BID tab 06/23/16 [Last Taken Unknown] Lisinopril [Zestril 40 mg (*)] 40 mg PO DAILY tab 06/23/16 [Last Taken Unknown] Magnesium Hydroxide [Milk of Magnesia] 30 ml PO DAILY PRN #30 oral.susp [Last Taken Unknown] Polyethylene Glycol 3350 [Miralax 17 gm (*)] 17 gm PO DAILY PRN #0 pkt 06/23/16 [Last Taken Unknown] Sennosides/Docusate Sodium [Senokot-S] 1 - 2 tab PO BID tab 06/23/16 [Last Taken Unknown] Sodium Cl Nasal [[place] (*)] 1 spray EACHNARE PRN PRN #0 btl 06/23/16 [ Last Taken Unknown] amLODIPine BESYLATE [Norvasc 5 mg (*)] 10 mg PO DAILY tab 06/23/16 [Last Taken Unknown] Annual Giving Manager Antibiotics: NA Discharge Medications: Refer to the Discharge Home Medication list for PRN reason. PICC Care - Routine: N/A - Orders Services needed: Registered Nurse, Certified Hair Preparer, Master Vp Digital Marketing , Physical Therapy, Occupational Therapy, Speech Language Pathologist Oxygen: NA Diet Texture: Regular Texture Diet, Thin Liquids, Meds Whole w/Liquids Weigh Patient: weekly Deleon: Not applicable [place]if[place] Stockings Discontinue Date: keep Knee high TEDs on at all times, or SCDs if able Activity/Weight Bearing Restrictions: as tolerates w/ assist - Labs/Radiology BMP Date: 07/01/16 CBC Date: 07/01/16 Imaging Orders: Please schedule a non-contrast head CT at [facility] on 07/01/16 Call or Fax Lab and Imaging Results to: Dr. Garcia - Follow Up Care Current Providers and Referrals: Patient,NotPresent [Unknown] - As per Instructions Adriana Garcia, [Doctor of Osteopathy] - 07/02/16 (please call to schedule appointment)
--- NOTE | 2016-06-23 12:39 | PDDCSUM ---
Discharge Summary Discharge Summary: DISCHARGE SUMMARY FOLLOW-UP ITEMS: Head CT on 07/01/2016, labs on 07/01/2016 DATE OF ADMISSION: 06/16/2016 DATE OF DISCHARGE: 06/23/2016 DISCHARGE DIAGNOSES: 1. Acute intraparenchymal hemorrhage with mass effect and midline shift, hemiplegia 2. Acute hypertensive emergency 3. Systemic inflammatory response syndrome 4. Probable ileus 5. Atelectasis 6. Superficial thrombophlebitis CONSULTATIONS: Neurosurgery, pulmonary Critical Care PROCEDURES / IMAGING: Head CT demonstrates large intraparenchymal hemorrhage in the left parietal lobe with surrounding edema with mass effect and midline shift, PICC line inserted, MRA demonstrating no source of hemorrhage CHIEF COMPLAINT: Acute hemiplegia SUBJECTIVE: Patient is feeling well, he is eating well PHYSICAL EXAM ON DISCHARGE: Systolic blood pressure is 126, heart rates in the 80s, afebrile overnight, right lower extremity with trace edema, expressive aphasia present, 0/5 motor strength in right upper and right lower extremity LABS ON DISCHARGE: White blood cell count 43494, hemoglobin 12.8, creatinine 0.7, potassium 4, serum sodium 139 HOSPITAL COURSE BY PROBLEM: 1. Acute intraparenchymal hemorrhage. Head CT on presentation demonstrating mass effect and midline shift, resulting in complete right-sided hemiplegia as well as expressive aphasia. Most likely causes hypertensive emergency with no underlying vascular abnormalities noted on MRA or MRI. 3% saline was utilized. Patient's most recent CT imaging was on 06/17 demonstrating stability. He will have a repeat head CT on 07/01. Neurosurgery will see him as an outpatient and would like an MRI in the future once the blood has been reabsorbed. 2. Hypertensive emergency. Evidenced by systolic blood pressure greater than 200 with intracranial hemorrhage. This is most likely from untreated hypertension chronically. He was up titrated on lisinopril and amlodipine, requiring addition of labetalol and up titration to 300 mg twice daily in order to accomplish good blood pressure management. He required a nicardipine drip while these medications were being up titrated and has been safely successfully discontinued at least 24 hours ago. Would recommend regular blood pressure monitoring, as progressive reduction in intracranial edema will likely result in lower BPs, and the labetolol can likely be weaned. 3. Systemic inflammatory response syndrome. Most likely secondary to a combination of ileus as well as acute hemorrhagic event with tachycardia and leukocytosis, both of which are improving without intervention beyond moving his bowels. Pulmonary embolism was ruled out with CT angiogram and he had no evidence of infection with negative urinalysis and negative blood cultures. The repeat CBCs an outpatient in a week. 4. Superficial thrombophlebitis. Lower extremity ultrasound demonstrates superficial thrombosis in the saphenous vein on the right lower extremity without any overt deep venous thrombosis. Consequently, CELE hose have been placed and I recommend ongoing use of CELE hose as well as SCDs if possible at the rehab facility. Migration into a DVT would be problematic for this patient as systemic anticoagulation is contraindicated, and an IVC filter would likely need to be placed. 5. Probable ileus. Present on x-ray imaging, resolved with aggressive bowel regimen, scheduled stool softener continued with as needed laxatives. 6. Atelectasis. Present on chest CT, resolving with incentive spirometer. DISCHARGE MEDICATIONS: Please see official discharge medication reconciliation sheet in chart labetalol 300 mg twice daily, Norvasc 10 mg daily, lisinopril 40 mg daily, Senokot S twice daily. DISCHARGE INSTRUCTIONS: Patient will require an outpatient head CT next week with labs. He also most likely require blood pressure medication weaning as his intracranial swelling reduces, would recommend weaning the labetalol 1st given that is easily titratable. TIME SPENT: Greater than 30 minutes were spent on direct patient care, as well as discharge planning and preparation.
[2016-06-23 14:31] VITALS: BP 138/82; PULSE 83
== END 2016-06-23 14:45 | DRG 64 ==
LOC: EDBD 05:38 → F2N 07:00
PROVIDERS: ADMIT Internal Medicine; ATTEND Internal Medicine
PROC: 02HV33Z Insertion of Infusion Device into Superior Vena Cava, Percutaneous Approach (ICD-10-PCS; principal; 2016-06-16)
DX: I61.9 Nontraumatic intracerebral hemorrhage, unspecified (principal); G93.6 Cerebral edema; I16.1 Hypertensive emergency; K56.7 Ileus, unspecified; J98.11 Atelectasis; G81.91 Hemiplegia, unspecified affecting right dominant side; R13.10 Dysphagia, unspecified; R47.01 Aphasia; R29.716 NIHSS score 16; I80.9 Phlebitis and thrombophlebitis of unspecified site; H40.059 Ocular hypertension, unspecified eye; Z79.82 Long term (current) use of aspirin
CPT/HCPCS: 82947-QW; 92507-GN; 92523-GN; 92526-GN; 92610-GN; 96374; 97112-GO; 97112-GP; 97162-GP; 97166-GO; 97530-GO; 97530-GP; 97535-GO; A9585; C1751; G8978-GP-CM; G8979-GP-CK; G8987-GO-CM; G8988-GO-CJ; G8996-GN-CH; G8996-GN-CI; G8997-GN-CH; G8997-GN-CI; G8998-GN-CH; G8998-GN-CI; G9162-GN-CL; G9163-GN-CJ; J0360; J1953; J2405; P9035; Q9967

== ENCOUNTER 2016-06-21 11:54 | Inpatient (IN) | payer OTHER, BC ==
[2016-06-23] MEDS ORDERED: MAGNESIUM HYDROXIDE 30 ML UDCUP PO PRN (15:26)
[2016-06-23] MEDS ORDERED: BISACODYL 5 MG EC TAB PO PRN (15:26)
[2016-06-23] MEDS ORDERED: SODIUM CL NASAL 45 ML BTL EACHNARE PRN (15:26)
[2016-06-23] MEDS ORDERED: BISACODYL 10 MG SUPP PR PRN (15:49)
--- NOTE | 2016-06-23 17:08 | GHP ---
[f rep st] HISTORY AND PHYSICAL HISTORY AND PHYSICAL AND POST ADMISSION PHYSICIAN EVALUATION AND REHABILITATION TREATMENT PLAN DATE OF ADMISSION: 06/23/2016 DATE OF EVALUATION: 06/23/2016. TIME OF EVALUATION: 1515. REFERRING FACILITY: [facility]. IMPAIRMENT GROUP: 1.2. DATE OF ONSET: 06/16/2016. REFERRING PHYSICIAN: Dr. Sutton. CONSULTING PHYSICIANS: He was seen in consultation by the Neurosurgery Service ; by Neurology, Dr. Simpson; and by Pulmonary/Critical Care, Dr. Shirley. REHABILITATION DIAGNOSIS: Debility, status post left parietal intracranial hemorrhage. ETIOLOGIC DIAGNOSIS: Right body involvement (left brain). HISTORY OF PRESENT ILLNESS: Mr. Aleman was admitted to [facility] on 06/16/2016, with acute onset of right upper and lower extremity weakness. He lost his ability to speak in the emergency department. He was noted to be markedly hypertensive with a systolic blood pressure of greater than 200. A head CT on 06/16 showed a large intraparenchymal hemorrhage in the left parietal lobe with edema and mild mass effect causing a right shift. He had followup brain imaging subsequently with [address]s, both of which showed stability. He had an MRI of the brain on to look for any other etiology for the bleed and it was negative. He had an MR angiogram which also noted no source of the hemorrhage. He was treated with IV nicardipine for blood pressure control, levetiracetam for seizure prophylaxis , and 3% sodium chloride. He eventually had his blood pressure controlled on 3 medications. He was noted to have tachycardia and an elevated white blood cell count, and was considered to be in systemic inflammatory response syndrome. Evaluation was negative for infectious or metabolic etiologies, and it was considered to be secondary to constipation. An ileus was noted on abdominal imaging. His ileus resolved with treatment with laxatives. A D-dimer was elevated. An ultrasound was done to his right leg lower extremity and showed a saphenous vein thrombosis, but no deep venous thrombosis. A chest CT was done and it was negative for pulmonary embolus. When his condition stabilized, he was transferred to inpatient rehabilitation for continued therapy. 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 STUDIES AND LABS IN THE HOSPITAL: Most recent basic metabolic profile showed normal renal function and electrolytes. BUN was elevated consistent with mild dehydration with a BUN of 26 and a creatinine of 0.7. He had an elevated blood glucose 117 on 06/23/2016. Liver function tests were evaluated as well as lipase on the day that he came in; these were all normal. Hematology this morning at [facility] showed an elevated white blood cell count of 13.55 , which had improved from previous days. On 06/19/2016, the white count was at its highest point at 16.66. There was no left shift, though there was a predominance of absolute neutrophils. He had mild anemia this morning with a hemoglobin of 12.8 and hematocrit of 37.2, these numbers have been drifting down slowly since 06/21/2016. Coagulation studies showed a normal PT and PTT. He had an elevated D-dimer of 1.26 with the upper limit of normal being 0.5. His urinalysis was negative for any infection. PRECAUTIONS: He is a fall risk. He has aspiration precautions and seizure precautions. ACTIVE COMORBIDITIES: He has the tier 3 comorbidity of hemiparesis. Otherwise he has no active tier 1, tier 2, or tier 3 comorbidities. PAST MEDICAL HISTORY: 1. Glaucoma. 2. Hypertension. 3. Benign prostatic hypertrophy. 4. Bilateral inguinal hernias. PAST SURGICAL HISTORY: He has had a surgical procedure on his left eye. He has had a transurethral resection of the prostate, and he has had bilateral inguinal hernia repairs. PRE-HOSPITAL MEDICATIONS: only dorzolamide eyedrops. ADMISSION MEDICATIONS: 1. Acetaminophen 650 mg p.o. q.4 hours p.r.n. 2. Amlodipine 10 mg p.o. q. day. 3. Bisacodyl 5 mg p.o. p.r.n. 4. Dorzolamide 2%, 1 drop left eye b.i.d. 5. Labetalol 300 mg p.o. b.i.d. 6. Lisinopril 40 mg p.o. q. day. 7. Magnesium hydroxide 30 mL p.o. q. day p.r.n. 8. Multivitamin 1 p.o. q. day. 9. Polyethylene glycol 17 g p.o. q. day p.r.n. 10. Senna/docusate b.i.d. p.r.n. 11. Sodium chloride nasal spray each nares p.r.n. ALLERGIES: There are no known drug allergies. FAMILY HISTORY: Noncontributory. 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 He has no history of smoking, tobacco, or using alcohol. He is and he lives with his . He has 2 sons in [place] and he was here on a visit. REVIEW OF SYSTEMS: He denies vision changes, or difficulty with swallowing. 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 He has considerable improvement in his ability to speak, but still has some word- finding issues. He has reduced sensation on the right upper and lower extremities. He denies a headache. He denies nausea, vomiting. His constipation has been relieved. He has no diarrhea. He had urinary frequency and had to urinate 10 times overnight last night, but this has slowed down today. He denies fevers or chills. He denies cough or dyspnea. He denies joint pain or joint swelling. He denies skin rash or skin breakdown, and otherwise a 10-point review of systems is negative. CURRENT LEVEL OF FUNCTION: Per the pre-admission screen: Regarding diet, feeding, and swallowing, he was on a regular diet. There had been mild dysphagia which per the pre-admission screen had resolved. Regarding grooming, he required setup and minimal assist with voice cues. Bathing was done with a sponge bath with setup and minimal assistance to the upper body. Dressing was done with moderate assistance, seated. He required assistance for toileting. Regarding bladder, he was incontinent 1 time in a 6 day period. Regarding bowel , he was noted to have constipation. For bed mobility, he needed minimal to moderate assistance with voice cuing. Transfers were accomplished with minimal to moderate assistance of 2 for sit to stand, and stand and pivot to a chair. For balance, he needed contact guard assist to minimal assist seated, and moderate assistance of 2 for standing. Endurance was noted to be fair to good. For communication, he was noted to have moderate expressive and receptive aphasia, and similarly for cognition. He was also noted to have a right-sided visual field cut versus hemineglect. IMPRESSION: The patient is a 66-year-old man who was not treated for any pre- existing hypertension, who presented to the [facility] on 06/16/2016, with symptoms of right-sided weakness. He then lost the ability to speak. Brain imaging showed a right parietal intraparenchymal hemorrhage with mass effect and left shift. He was followed with serial brain imaging and did not need surgical intervention. He had recovery of his ability to speak, though he remains with some word-finding difficulties, but he has not had return of motor control of his right upper and lower extremities and he remains with a sensory deficit on the right as well. His blood pressure has been controlled on 3 medications and he has been otherwise stabilized and is appropriate for inpatient rehabilitation. He will have therapy with physical therapy, occupational therapy, and speech and language pathology on a modified schedule for 30-60 minutes per day for each discipline on 7 days of the week to total 15 hours a week or more. His expected duration of stay is 14-21 days. It is anticipated that upon discharge, he will continue to benefit from home health services, including nursing, speech and language pathology, a nurse's aide, occupational therapy, and physical therapy. His goal is to return to [place] when his medically stable and physically able to travel. For a safe discharge, he will need to achieve independence with eating and grooming, minimal assistance to standby assist for bathing and dressing, supervision for bed mobility, and standby assistance for transfers. It is hoped that he will be able to ambulate short distances with a jamie-walker and use a wheelchair for community distances. ASSESSMENT AND PLAN: 1. Left parietal intraparenchymal hemorrhage with right upper and lower extremity weakness, sensory loss, and possibly right hemineglect. Physical and occupational therapies to optimize mobility and activities of daily living. 2. Mild dysphagia and mild expressive aphasia to be assessed and treated per Speech and Language Pathology. 3. Hypertension, status post hypertensive emergency. Blood pressure is currently adequately controlled on lisinopril 40 mg q. day, amlodipine 10 mg q. day, and labetalol 300 mg b.i.d. It is likely that as the brain clears blood, his blood pressure will come down and labetalol will be tapered or discontinued if possible. 4. Constipation has respond to laxatives. He will be monitored and the bowel program will be adjusted as needed. 5. Glaucoma in the left eye. Dorzolamide will be continued. 6. Anemia. Check CBC in the morning. 7. Superficial thrombophlebitis and deep venous thrombosis prophylaxis. Pharmacologic prophylaxis is contraindicated in the setting of a recent intraparenchymal hemorrhage. He will have CELE hose and at night he will have sequential compression devices on his legs. 8. Systemic inflammatory response syndrome has been improving. Infectious and metabolic etiologies were ruled out. Will repeat a CBC in the morning to ensure that his white count continues to improve. FOLLOWUP: He is to have a repeat head CT as well as a BMP and a CBC on 2016, and he is to followup with neurosurgeon, Dr. Adriana Garcia on 07/02/2016. /[id number]/MODL MTDD
--- NOTE | 2016-06-23 17:22 | PDOREHIP ---
Admission [facility] - Admission - 3 Day Assessment Period Admission Date/Day 1: 06/23/16 Day 2: 06/24/16 Day 3: 06/25/16 - Active Diagnoses Comorbidities and Co-existing Conditions at Admission: 17895. None of the Above - Skin Conditions Unhealed Pressure Ulcer (1 or more/Stage 1 or >)-Admission: 0. No
[2016-06-23] MEDS ORDERED: Herbals/Supplements -Info Only PO SCH (18:00)
[2016-06-23] MEDS: LABETALOL HCL 100 MG TAB PO SCH (20:08)
[2016-06-23] MEDS: DORZOLAMIDE 2% OPTH DROPS LEFTEYE SCH (20:12)
[2016-06-24] MEDS: LISINOPRIL 40 MG TAB PO SCH (07:54)
[2016-06-24] MEDS: MULTIVITAMINS 1 EACH TAB PO SCH (07:54)
[2016-06-24] MEDS: amLODIPine BESYLATE 5 MG TAB PO SCH (07:54)
[2016-06-24] MEDS: LABETALOL HCL 100 MG TAB PO SCH ×2 (07:55→21:07)
[2016-06-24] MEDS: DORZOLAMIDE 2% OPTH DROPS LEFTEYE SCH ×2 (07:55→21:08)
--- NOTE | 2016-06-24 08:56 | SOAPPROG ---
SOAP Progress Note Assessment/Plan: Assessment: * Left parietal intraparenchymal hemorrhage on 06/16/16 with right upper and lower extremity weakness, sensory loss, and possibly right hemineglect. Physical and occupational therapies to optimize mobility and activities of daily living. * Mild dysphagia and mild expressive aphasia to be assessed and treated per Speech and Language Pathology. * Hypertension, status post hypertensive emergency. Blood pressure elevated this morning 06/24/16 on lisinopril 40 mg q. day, amlodipine 10 mg q. day, and labetalol 300 mg b.i.d. It is likely that as the brain clears blood, his blood pressure will come down and labetalol will be tapered or discontinued if possible. * Depression? Continue to monitor. Not interested in medications at present. Counseling per INTERMODAL TRUCK DRIVER. * Constipation has responded to laxatives. He will be monitored and the bowel program will be adjusted as needed. * Glaucoma in the left eye. Dorzolamide will be continued. * Anemia. Improving on CBC 06/24/16. * Superficial thrombophlebitis and deep venous thrombosis prophylaxis. Pharmacologic prophylaxis is contraindicated in the setting of a recent intraparenchymal hemorrhage. He will have CELE hose and at night he will have sequential compression devices on his legs. * Systemic inflammatory response syndrome has been improving. Infectious and metabolic etiologies were ruled out. Not tachycardic or febrile and WBCs improving on CBC 06/24/16. FOLLOWUP: He is to have a repeat head CT as well as a BMP and a CBC on 2016, and he is to followup with neurosurgeon, Dr. Adriana Garcia on 07/02/2016. 06/24/16 09:45 Subjective: Slept OK. Did not like seizure pads on bed. Asks about time frame of recovery. Admits to impatience and depression; does not want medications at present. Not in pain. No cough/dyspnea, f/c. Objective: Vital Signs Temp Pulse Resp BP Pulse Ox 36.9 C 75 16 154/101 H 94 06/24/16 08:00 06/24/16 08:00 06/24/16 08:00 06/24/16 08:00 06/24/16 08:00 06/23/16 06/24/16 06/25/16 05:59 05:59 05:59 Intake Total 336 Output Total 3450 Balance -3114 Physical Exam - Physical Exam General Appearance: WD/WN, alert, no apparent distress Respiratory: normal breath sounds, No crackles, No rhonchi, No wheezing Cardiac/Chest: regular rate, rhythm, No edema Skin: normal color, warm/dry Neuro/Psych: alert, normal mood/affect, oriented x 3, aphasia (Word-finding difficulty), motor weakness (RUE & RLE) ICD10 Worksheet Patient Problems: Problems Problem Status Onset Cerebral hemorrhage Acute
[2016-06-24 09:00] LABS: % IMMATURE GRANULYOCYTES 0.3 % (0.0-1.1); ABSOLUTE IMMATURE GRANULOCYTES 0.04 10^3/uL (0.00-0.10); ADD DIFF? NO; ADD MORPH? NO; ADD SCAN? NO; ATYPICAL LYMPHOCYTE FLAG 0 (0-99); FRAGMENT RBC FLAG 0 (0-99); HEMATOCRIT 38.2 % (40.0-51.0); LEFT SHIFT FLG 20 (0-99); LIPEMIA HEMOLYSIS FLAG 90 (0-99); MEAN CELL HEMOGLOBIN 29.7 pg (27.9-34.1); MEAN CELL VOLUME 87.2 fL (81.5-99.8); MEAN PLATELET VOLUME 12.5 fL (8.7-11.7); PLATELET CLUMPS FLAG 10 (0-99); PLATELET COUNT 174 10^3/uL (150-400); RED BLOOD CELL COUNT 4.38 10^6/uL (4.40-6.38); RED CELL DISTRIBUTION WIDTH 12.6 % (11.5-15.2)
[2016-06-24] MEDS ORDERED: TEARS/DEXTRAN 70/HYPROMELLOSE 15 ML OPHT.BTL EACHEYE PRN (09:01)
[2016-06-24] MEDS: SENNOSIDES 1 TAB PO PRN (21:07)
[2016-06-25] MEDS: LABETALOL HCL 100 MG TAB PO SCH ×2 (08:15→21:12)
[2016-06-25] MEDS: MULTIVITAMINS 1 EACH TAB PO SCH (08:16)
[2016-06-25] MEDS: amLODIPine BESYLATE 5 MG TAB PO SCH (08:16)
[2016-06-25] MEDS: DORZOLAMIDE 2% OPTH DROPS LEFTEYE SCH ×2 (08:16→21:13)
[2016-06-25] MEDS: LISINOPRIL 40 MG TAB PO SCH (08:16)
--- NOTE | 2016-06-25 12:46 | SOAPPROG ---
SOAP Progress Note Assessment/Plan: Assessment: * Left parietal intraparenchymal hemorrhage on 06/16/16 with right upper and lower extremity weakness, sensory loss, and right hemineglect. Initial FIM 41. Beginning pre-gait activities with PT. Hemineglect +/- R visual field cut noted by OT. Mod A for bathing, max A for LB dressing. Continue physical and occupational therapies to optimize mobility and activities of daily living. * Expressive aphasia, treated per Speech and Language Pathology. Depressed affect and motivation issues affect cognitive assessment. Get's frustrated at deficits. * Hypertension, status post hypertensive emergency. Blood pressure elevated this morning 06/24/16 on lisinopril 40 mg q. day, amlodipine 10 mg q. day, and labetalol 300 mg b.i.d. It is likely that as the brain clears blood, his blood pressure will come down and labetalol will be tapered or discontinued if possible. Continue to monitor. * Insomnia. Discussed treatment options. Will initiate trazodone 50 mg QHS beginning 06/25/16. * Depression? Continue to monitor. Not interested in medications at present. Counseling per SHAREPOINT WEB DEVELOPER. * Constipation has responded to laxatives. He will be monitored and the bowel program will be adjusted as needed. * Glaucoma in the left eye. Dorzolamide will be continued. * Anemia. Improving on CBC 06/24/16. * Superficial thrombophlebitis and deep venous thrombosis prophylaxis. Pharmacologic prophylaxis is contraindicated in the setting of a recent intraparenchymal hemorrhage. He will have CELE hose and at night he will have sequential compression devices on his legs. * Systemic inflammatory response syndrome has been improving. Infectious and metabolic etiologies were ruled out. Not tachycardic or febrile and WBCs improving on CBC 06/24/16. FOLLOWUP: He is to have a repeat head CT as well as a BMP and a CBC on 2016, and he is to followup with neurosurgeon, Dr. Adriana Garcia on 07/02/2016. Attended staffing, 15 min. D/W case mgmt, nursing, PT, OT, MECHANICAL SUPERVISOR. Lives in split -level home in [place]; can live on lower level but has a few stairs to enter the home. Goal to be able ot function at home rather than transfer to SNF or rehabilitation facility in [place]. Tentative discharge date of 07/08/16. Discussed insomnia and medication, and follow-up CT and appointment with Neurosurgery, with Sada, who would like to postpone CT and follow-up. 06/25/16 12:46 Subjective: Poor sleep last night and requesting medication. Was awake much of the night. Denies pain, dyspnea, cough, f/c. Objective: Vital Signs Temp Pulse Resp BP Pulse Ox 36.8 C 75 16 152/83 H 92 06/25/16 06:16 06/25/16 08:15 06/25/16 06:16 06/25/16 08:16 06/25/16 06:16 Laboratory Results 06/24/16 04:30 06/24/16 06/25/16 06/26/16 05:59 05:59 05:59 Intake Total 336 1480 360 Output Total 3458 4990 Balance -1502 -8645 360 - Time Spent With Patient Time Spent With Patient: Greater than 35 minutes floor time today, including ore than 50% of time incoordination of care during staffing meeting, and counseling patient. Physical Exam - Physical Exam General Appearance: WD/WN, alert, no apparent distress Respiratory: normal breath sounds, No crackles, No rhonchi, No wheezing Cardiac/Chest: regular rate, rhythm, No edema Skin: normal color, warm/dry Neuro/Psych: alert, normal mood/affect, oriented x 3, aphasia (occ word-finding deficit.), motor weakness (RUE and RLE weakness. 1 person max assisit transfer from bed to wheelchair.) ICD10 Worksheet Patient Problems: Problems Problem Status Onset Cerebral hemorrhage Acute
[2016-06-25] MEDS: SENNOSIDES 1 TAB PO PRN (21:12)
[2016-06-25] MEDS: traZODone 50 MG TAB PO SCH (21:12)
[2016-06-26] MEDS: amLODIPine BESYLATE 5 MG TAB PO SCH (08:55)
[2016-06-26] MEDS: MULTIVITAMINS 1 EACH TAB PO SCH (08:55)
[2016-06-26] MEDS: LABETALOL HCL 100 MG TAB PO SCH ×2 (08:56→20:12)
[2016-06-26] MEDS: LISINOPRIL 40 MG TAB PO SCH (08:56)
[2016-06-26] MEDS: DORZOLAMIDE 2% OPTH DROPS LEFTEYE SCH ×2 (09:10→20:13)
--- NOTE | 2016-06-26 12:23 | SOAPPROG ---
SOAP Progress Note Assessment/Plan: Assessment/Plan: * Left parietal intraparenchymal hemorrhage on 06/16/16 with right upper and lower extremity weakness, sensory loss, and right hemineglect. Initial FIM 41. Beginning pre-gait activities with PT. Hemineglect +/- R visual field cut noted by OT. Mod A for bathing, max A for LB dressing. Continue physical and occupational therapies to optimize mobility and activities of daily living. * Expressive aphasia, treated per Speech and Language Pathology. Depressed affect and motivation issues affect cognitive assessment. Get's frustrated at deficits. * Hypertension, status post hypertensive emergency. Blood pressure this am 110/ 73, later morning 131/81 after meds. As his blood pressure comes down, Dr Vanessa recommended labetalol to be tapered or discontinued if possible. Will decrease from 300 mg BID to 200mg BID. Continue to monitor. * Insomnia. Initiated trazodone 50 mg QHS 06/25/16. * Depression? Continue to monitor. Not interested in medications at present. Counseling per HYBRID CAR MECHANIC. * Constipation has responded to laxatives. He will be monitored and the bowel program will be adjusted as needed. * Glaucoma in the left eye. Dorzolamide will be continued. * Anemia. Improving on CBC 06/24/16. * Superficial thrombophlebitis and deep venous thrombosis prophylaxis. Pharmacologic prophylaxis is contraindicated in the setting of a recent intraparenchymal hemorrhage. He will have CELE hose and at night he will have sequential compression devices on his legs. * Systemic inflammatory response syndrome has been improving. Infectious and metabolic etiologies ruled out. No tachycardia, non febrile and WBCs improving on CBC 06/24/16. FOLLOWUP: He is to have a repeat head CT as well as a BMP and a CBC on 2016, and he is to followup with neurosurgeon, Dr. Adriana Garcia on 07/02/2016. Plan: Cont Dr Mancia rehab treatment plan 06/26/16 12:24 Subjective: C/O feeling exhausted poor appetite No F/C/CP/SOB/N/V/D Still not recovered by recent bowel program to "clean me out" Slept better last night on Trazodone Objective: Vital Signs Temp Pulse Resp BP Pulse Ox 36.5 C 81 16 110/73 93 06/26/16 07:07 06/26/16 08:56 06/26/16 07:07 06/26/16 08:56 06/26/16 07:07 Laboratory Results 06/24/16 04:30 06/25/16 06/26/16 06/27/16 05:59 05:59 05:59 Intake Total 1480 1620 900 Output Total 5565 1975 Balance -1145 -217 900 Physical Exam - Physical Exam General Appearance: alert, mild distress (fatigue, flat affect) Neck: supple Respiratory: lungs clear Cardiac/Chest: regular rate, rhythm Skin: normal color, warm/dry Extremities: No pedal edema, No calf tenderness Neuro/Psych: alert, normal mood/affect, oriented x 3, motor weakness, sensory deficit, other (No acute changes) ICD10 Worksheet Patient Problems: Problems Problem Status Onset Cerebral hemorrhage Acute
[2016-06-26] MEDS: ACETAMINOPHEN 325 MG TAB PO PRN (20:13)
[2016-06-26] MEDS: traZODone 50 MG TAB PO SCH (20:13)
[2016-06-27] MEDS: LISINOPRIL 40 MG TAB PO SCH (08:28)
[2016-06-27] MEDS: amLODIPine BESYLATE 5 MG TAB PO SCH (08:28)
[2016-06-27] MEDS: MULTIVITAMINS 1 EACH TAB PO SCH (08:28)
[2016-06-27] MEDS: SENNOSIDES 1 TAB PO PRN (08:28)
[2016-06-27] MEDS: LABETALOL HCL 100 MG TAB PO SCH ×2 (08:29→20:35)
[2016-06-27] MEDS: DORZOLAMIDE 2% OPTH DROPS LEFTEYE SCH (08:30)
--- NOTE | 2016-06-27 13:18 | SOAPPROG ---
SOAP Progress Note Assessment/Plan: Assessment/Plan: 66 YO with Left parietal intraparenchymal hemorrhage on 06/16/16 * IPH: R hemiparesis, sensory loss, and hemineglect. Initial FIM 41. Beginning pre-gait activities with PT. Hemineglect +/- R visual field cut noted by OT. Mod A for bathing, max A for LB dressing. Continue physical and occupational therapies to optimize mobility and activities of daily living. * Expressive aphasia, treated per ST. Depressed affect and motivation issues affect cognitive assessment. Get's frustrated at deficits. * Hypertension, status post hypertensive emergency. Blood pressure this am 128/ 75, Pulse 69 As his blood pressure comes down, Dr Vanessa recommended labetalol to be tapered or discontinued if possible. Decrease from 300 mg BID to 200mg BID on 06/26, will decrease to 100mg bid today. Continue to monitor. * Insomnia. Initiated trazodone 50 mg QHS 06/25/16. Slept only fair last night. * Depression? Continue to monitor. Not interested in medications at present. Counseling per SWEEPER DRIVER. * Constipation has responded to laxatives. He will be monitored and the bowel program will be adjusted as needed. * Glaucoma in the left eye. Dorzolamide will be continued. * Anemia. Improving on CBC 06/24/16. * Superficial thrombophlebitis and deep venous thrombosis prophylaxis. Pharmacologic prophylaxis is contraindicated in the setting of a recent intraparenchymal hemorrhage. He will have CELE hose and at night he will have sequential compression devices on his legs. * Systemic inflammatory response syndrome has been improving. Infectious and metabolic etiologies ruled out. No tachycardia, non febrile and WBCs improving on CBC 06/24/16. FOLLOWUP: He is to have a repeat head CT as well as a BMP and a CBC on 2016, and he is to followup with neurosurgeon, Dr. Adriana Garcia on 07/02/2016. Plan: Cont Dr Mancia rehab treatment plan 06/27/16 13:17 Subjective: No new c/o's slight improvement in affect No F/C/CP/SOB/N/V/D/C Objective: Vital Signs Temp Pulse Resp BP Pulse Ox 36.4 C 69 16 128/75 H 94 06/27/16 08:01 06/27/16 08:29 06/27/16 08:01 06/27/16 08:29 06/27/16 08:01 Laboratory Results 06/24/16 04:30 06/26/16 06/27/16 06/28/16 05:59 05:59 05:59 Intake Total 1620 1820 472 Output Total 1974 1700 1100 Balance -355 120 -628 Physical Exam - Physical Exam General Appearance: alert, no apparent distress Respiratory: lungs clear Cardiac/Chest: regular rate, rhythm Skin: normal color, warm/dry, No rash Extremities: No pedal edema, No calf tenderness Neuro/Psych: alert, normal mood/affect, oriented x 3, abnormal gait, motor weakness, sensory deficit, cognition abnormalities, other (no acute changes) ICD10 Worksheet Patient Problems: Problems Problem Status Onset Cerebral hemorrhage Acute
[2016-06-27] MEDS: ACETAMINOPHEN 325 MG TAB PO PRN (20:35)
[2016-06-27] MEDS: traZODone 50 MG TAB PO SCH (20:35)
[2016-06-28] MEDS: DORZOLAMIDE 2% OPTH DROPS LEFTEYE SCH ×3 (05:09→20:14)
[2016-06-28] MEDS: MULTIVITAMINS 1 EACH TAB PO SCH (09:01)
[2016-06-28] MEDS: POLYETHYLENE GLYCOL 3350 17 GM PKT PO PRN (09:01)
[2016-06-28] MEDS: SENNOSIDES 1 TAB PO PRN (09:01)
[2016-06-28] MEDS: LABETALOL HCL 100 MG TAB PO SCH ×2 (09:02→20:12)
[2016-06-28] MEDS: LISINOPRIL 40 MG TAB PO SCH (09:02)
[2016-06-28] MEDS: amLODIPine BESYLATE 5 MG TAB PO SCH (09:03)
[2016-06-28] MEDS: traZODone 50 MG TAB PO SCH (20:12)
[2016-06-28] MEDS: ACETAMINOPHEN 325 MG TAB PO PRN (20:13)
[2016-06-29] MEDS: amLODIPine BESYLATE 5 MG TAB PO SCH (08:55)
[2016-06-29] MEDS: LABETALOL HCL 100 MG TAB PO SCH ×2 (08:56→20:35)
[2016-06-29] MEDS: MULTIVITAMINS 1 EACH TAB PO SCH (08:56)
[2016-06-29] MEDS: LISINOPRIL 40 MG TAB PO SCH (08:56)
[2016-06-29] MEDS: DORZOLAMIDE 2% OPTH DROPS LEFTEYE SCH ×2 (08:57→21:27)
--- NOTE | 2016-06-29 14:07 | SOAPPROG ---
SOAP Progress Note Assessment/Plan: Assessment: * Left parietal intraparenchymal hemorrhage on 06/16/16 with right upper and lower extremity weakness, sensory loss, and right hemineglect. Initial FIM 41. Beginning pre-gait activities with PT. Hemineglect +/- R visual field cut noted by OT. Mod A for bathing, max A for LB dressing. Continue physical and occupational therapies to optimize mobility and activities of daily living. * Expressive aphasia, treated per Speech and Language Pathology. Notably improved 06/29/16 with no word-finding deficit observed. * Hypertension, status post hypertensive emergency. On lisinopril 40 mg q. day , amlodipine 10 mg q. day, and labetalol 300 mg b.i.d tapered to 100 mg BID on ; BP up this morning 06/29/16. Continue to monitor. As the brain clears blood, his blood pressure will likely come down and labetalol will be tapered or discontinued if possible. Continue to monitor. * Insomnia. Discussed treatment options. Initiated trazodone 50 mg QHS beginning 06/25/16. * Depression? Continue to monitor. Not interested in medications at present. Counseling per INSIDE TECHNICAL SALES REPRESENTATIVE. * Constipation has responded to laxatives. He will be monitored and the bowel program will be adjusted as needed. * Glaucoma in the left eye. Dorzolamide will be continued. * Anemia. Improving on CBC 06/24/16. * Superficial thrombophlebitis and deep venous thrombosis prophylaxis. Pharmacologic prophylaxis is contraindicated in the setting of a recent intraparenchymal hemorrhage. He will have CELE hose and at night he will have sequential compression devices on his legs. * Systemic inflammatory response syndrome has been improving. Infectious and metabolic etiologies were ruled out. Not tachycardic or febrile and WBCs improving on CBC 06/24/16. FOLLOWUP: He is to have BMP and a CBC on 07/01/2016, and he is to have repeat head CT and followup with neurosurgeon, Dr. Adriana Garcia week of 07/05/16. Lives in split-level home in [place]; can live on lower level but has a few stairs to enter the home. Goal to be able ot function at home rather than transfer to SNF or rehabilitation facility in [place]. Tentative discharge date of . 06/29/16 13:45 Subjective: No recovery in arm or leg movement noted by patient. Sleeping OK; wants ADLs done earlier than 0900 and says he's arranged for ADLs at 0700. Feels his thinking is less "foggy." No f/c, cough/dyspnea, n/v/c/d. Objective: Vital Signs Temp Pulse Resp BP Pulse Ox 37.5 C 67 18 149/90 H 97 06/28/16 19:14 06/29/16 08:56 06/29/16 08:00 06/29/16 08:56 06/29/16 08:00 Laboratory Results 06/24/16 04:30 06/28/16 06/29/16 06/30/16 05:59 05:59 05:59 Intake Total 1392 440 460 Output Total 2950 2130 250 Balance -1558 -1690 210 Physical Exam - Physical Exam General Appearance: WD/WN, alert, no apparent distress Respiratory: normal breath sounds, No crackles, No rhonchi, No wheezing Cardiac/Chest: regular rate, rhythm, No edema Skin: normal color, warm/dry Neuro/Psych: alert, normal mood/affect, oriented x 3, motor weakness (RUE and RLE flaccid paralysis) ICD10 Worksheet Patient Problems: Problems Problem Status Onset Cerebral hemorrhage Acute
[2016-06-29] MEDS: traZODone 50 MG TAB PO SCH (20:35)
[2016-06-29] MEDS: ACETAMINOPHEN 325 MG TAB PO PRN (20:35)
[2016-06-30] MEDS: DORZOLAMIDE 2% OPTH DROPS LEFTEYE SCH ×2 (09:00→21:19)
[2016-06-30] MEDS: LISINOPRIL 40 MG TAB PO SCH (09:00)
[2016-06-30] MEDS: amLODIPine BESYLATE 5 MG TAB PO SCH (09:00)
[2016-06-30] MEDS: LABETALOL HCL 100 MG TAB PO SCH ×2 (09:00→21:12)
[2016-06-30] MEDS: MULTIVITAMINS 1 EACH TAB PO SCH (09:01)
--- NOTE | 2016-06-30 10:32 | SOAPPROG ---
SOAP Progress Note Assessment/Plan: Assessment: * Left parietal intraparenchymal hemorrhage on 06/16/16 with right upper and lower extremity weakness, sensory loss, and right hemineglect. Initial FIM 41. Beginning pre-gait activities with PT. Hemineglect +/- R visual field cut noted by OT. Mod A for bathing, max A for LB dressing. Beginning to have return of hip abduction/adduction per PT on 06/29/16. Continue physical and occupational therapies to optimize mobility and activities of daily living. * Expressive aphasia, treated per Speech and Language Pathology. Notably improved 06/29/16 with no word-finding deficit observed. * Hypertension, status post hypertensive emergency. On lisinopril 40 mg q. day , amlodipine 10 mg q. day, and labetalol 300 mg b.i.d tapered to 100 mg BID on ; BP up this morning 06/29/16. Continue to monitor. As the brain clears blood, his blood pressure will likely come down and labetalol will be tapered or discontinued if possible. Continue to monitor. * Insomnia. Discussed treatment options. Initiated trazodone 50 mg QHS beginning 06/25/16. * Depression? Continue to monitor. Not interested in medications at present. Counseling per STOCK TRACER. * Constipation has responded to laxatives. He will be monitored and the bowel program will be adjusted as needed. * Glaucoma in the left eye. Dorzolamide will be continued. * Anemia. Improving on CBC 06/24/16. * Superficial thrombophlebitis and deep venous thrombosis prophylaxis. Pharmacologic prophylaxis is contraindicated in the setting of a recent intraparenchymal hemorrhage. He will have CELE hose and at night he will have sequential compression devices on his legs. * Systemic inflammatory response syndrome has been improving. Infectious and metabolic etiologies were ruled out. Not tachycardic or febrile and WBCs improving on CBC 06/24/16. FOLLOWUP: He is to have BMP and a CBC on 07/01/2016, and he is to have repeat head CT and followup with neurosurgeon, Dr. Adriana Garcia week of 07/05/16. Lives in split-level home in [place]; can live on lower level but has a few stairs to enter the home. Goal to be able ot function at home rather than transfer to SNF or rehabilitation facility in [place]. Tentative discharge date of . 06/30/16 10:29 Subjective: No complaints. Slept OK, no pain,f/c, cough/dyspnea. Feels his thinking is clearer. Objective: Vital Signs Temp Pulse Resp BP Pulse Ox 36.9 C 72 16 130/70 H 96 06/29/16 19:47 06/29/16 20:35 06/29/16 19:47 06/30/16 09:00 06/29/16 19:47 Laboratory Results 06/24/16 04:30 06/29/16 06/30/16 07/01/16 05:59 05:59 05:59 Intake Total 440 1140 Output Total 2130 2145 Balance -1690 -1005 Physical Exam - Physical Exam General Appearance: WD/WN, alert, no apparent distress Respiratory: normal breath sounds, No crackles, No rhonchi, No wheezing Cardiac/Chest: regular rate, rhythm, No edema Skin: normal color, warm/dry Neuro/Psych: alert, normal mood/affect, oriented x 3, motor weakness (RUE flaccid paralysis. RLE weak.) ICD10 Worksheet Patient Problems: Problems Problem Status Onset Cerebral hemorrhage Acute
[2016-06-30] MEDS: traZODone 50 MG TAB PO SCH (21:12)
[2016-06-30] MEDS: ACETAMINOPHEN 325 MG TAB PO PRN (21:14)
[2016-07-01 08:37] LABS: % IMMATURE GRANULYOCYTES 0.3 % (0.0-1.1); ABSOLUTE IMMATURE GRANULOCYTES 0.03 10^3/uL (0.00-0.10); ADD DIFF? NO; ADD MORPH? NO; ADD SCAN? NO; ATYPICAL LYMPHOCYTE FLAG 10 (0-99); FRAGMENT RBC FLAG 0 (0-99); HEMATOCRIT 39.5 % (40.0-51.0); HEMOGLOBIN 13.2 g/dL (13.7-17.5); LEFT SHIFT FLG 10 (0-99); LIPEMIA HEMOLYSIS FLAG 80 (0-99); MEAN CELL HEMOGLOBIN 29.8 pg (27.9-34.1); MEAN CELL HEMOGLOBIN CONCENTR. 33.4 g/dL (32.4-36.7); MEAN CELL VOLUME 89.2 fL (81.5-99.8); MEAN PLATELET VOLUME 10.9 fL (8.7-11.7); PLATELET CLUMPS FLAG 0 (0-99); PLATELET COUNT 409 10^3/uL (150-400); RED BLOOD CELL COUNT 4.43 10^6/uL (4.40-6.38); RED CELL DISTRIBUTION WIDTH 12.6 % (11.5-15.2)
[2016-07-01] MEDS: DORZOLAMIDE 2% OPTH DROPS LEFTEYE SCH ×2 (09:02→20:34)
[2016-07-01] MEDS: MULTIVITAMINS 1 EACH TAB PO SCH (09:04)
[2016-07-01] MEDS: amLODIPine BESYLATE 5 MG TAB PO SCH (09:05)
[2016-07-01] MEDS: LABETALOL HCL 100 MG TAB PO SCH ×2 (09:05→20:32)
[2016-07-01] MEDS: LISINOPRIL 40 MG TAB PO SCH (09:05)
[2016-07-01 09:11] LABS: ANION GAP 9 mEq/L (8-16); CALCIUM 9.3 mg/dL (8.5-10.4); CARBON DIOXIDE 26 mEq/l (22-31); CHLORIDE 104 mEq/L (97-110); CREATININE 0.9 mg/dL (0.7-1.3); GLOMERULAR FILTRATION RATE > 60; GLUCOSE 103 mg/dL (70-100); POTASSIUM 4.4 mEq/L (3.5-5.2); SODIUM 139 mEq/L (134-144)
--- NOTE | 2016-07-01 15:22 | SOAPPROG ---
SOAP Progress Note Assessment/Plan: Assessment: * Left parietal intraparenchymal hemorrhage on 06/16/16 with right upper and lower extremity weakness, sensory loss, and right hemineglect. Initial FIM 41. Beginning pre-gait activities with PT. Hemineglect +/- R visual field cut noted by OT. Mod A for bathing, max A for LB dressing. Beginning to have return of hip abduction/adduction per PT on 06/29/16. Continue physical and occupational therapies to optimize mobility and activities of daily living. * Expressive aphasia, treated per Speech and Language Pathology. Notably improved 06/29/16 with no word-finding deficit observed. * Hypertension, status post hypertensive emergency. On lisinopril 40 mg q. day , amlodipine 10 mg q. day, and labetalol 300 mg b.i.d tapered to 100 mg BID on ; BP up this morning 06/29/16. Continue to monitor. As the brain clears blood, his blood pressure will likely come down and labetalol will be tapered or discontinued if possible. Continue to monitor. * Insomnia. Continue trazodone 50 mg QHS beginning 06/25/16. * Depression? Continue to monitor. Not interested in medications at present. Counseling per VISUAL EFFECTS ARTIST. * Constipation has responded to laxatives. He will be monitored and the bowel program will be adjusted as needed. * Glaucoma in the left eye. Dorzolamide will be continued. * Anemia. Improving on CBC 06/24/16. * Superficial thrombophlebitis and deep venous thrombosis prophylaxis. Pharmacologic prophylaxis is contraindicated in the setting of a recent intraparenchymal hemorrhage. He will have CELE hose and at night he will have sequential compression devices on his legs. * Systemic inflammatory response syndrome has been improving. Infectious and metabolic etiologies were ruled out. Not tachycardic or febrile and WBCs improving on CBC 06/24/16. Leukocytosis resolved 07/01/16. BMP c/w slight dehydration 07/01/16, o/w wnl. Followup with neurosurgeon, Dr. Adriana Garcia week of 07/05/16. Lives in split-level home in [place]; can live on lower level but has a few stairs to enter the home. Goal to be able ot function at home rather than transfer to SNF or rehabilitation facility in [place]. Tentative discharge date of . 07/01/16 15:23 Subjective: Still expressing frustration about slow pace of recovery. Denies f/c, cough, dyspnea. Not in pain. Adequate sleep. C/O boredom. Objective: Vital Signs Temp Pulse Resp BP Pulse Ox 36.9 C 72 16 114/80 95 07/01/16 06:03 07/01/16 08:47 07/01/16 06:03 07/01/16 08:47 07/01/16 06:03 Laboratory Results 07/01/16 06:10 07/01/16 06:10 06/30/16 07/01/16 07/02/16 05:59 05:59 05:59 Intake Total 1140 1050 1020 Output Total 1489 2071 300 Balance -1005 -1025 720 Physical Exam - Physical Exam General Appearance: WD/WN, alert, no apparent distress Respiratory: normal breath sounds, No crackles, No rhonchi, No wheezing Cardiac/Chest: regular rate, rhythm, No edema Skin: normal color, warm/dry Neuro/Psych: alert, normal mood/affect, oriented x 3, motor weakness (RUE & RLE) ICD10 Worksheet Patient Problems: Problems Problem Status Onset Cerebral hemorrhage Acute
[2016-07-01] MEDS: SENNOSIDES 1 TAB PO PRN (20:31)
[2016-07-01] MEDS: traZODone 50 MG TAB PO SCH (23:14)
[2016-07-02] MEDS: amLODIPine BESYLATE 5 MG TAB PO SCH (08:59)
[2016-07-02] MEDS: LABETALOL HCL 100 MG TAB PO SCH (09:00)
[2016-07-02] MEDS: MULTIVITAMINS 1 EACH TAB PO SCH (09:00)
[2016-07-02] MEDS: LISINOPRIL 40 MG TAB PO SCH (09:01)
[2016-07-02] MEDS: DORZOLAMIDE 2% OPTH DROPS LEFTEYE SCH ×2 (09:02→20:16)
[2016-07-02] MEDS: POLYETHYLENE GLYCOL 3350 17 GM PKT PO PRN (09:05)
[2016-07-02] MEDS: traZODone 50 MG TAB PO SCH (20:16)
[2016-07-03] MEDS: DORZOLAMIDE 2% OPTH DROPS LEFTEYE SCH ×2 (08:43→20:08)
[2016-07-03] MEDS: amLODIPine BESYLATE 5 MG TAB PO SCH (08:43)
[2016-07-03] MEDS: MULTIVITAMINS 1 EACH TAB PO SCH (08:43)
[2016-07-03] MEDS: SENNOSIDES 1 TAB PO PRN (08:43)
[2016-07-03] MEDS: LISINOPRIL 40 MG TAB PO SCH (08:43)
--- NOTE | 2016-07-03 19:02 | SOAPPROG ---
SOAP Progress Note Assessment/Plan: * Left parietal intraparenchymal hemorrhage on 06/16/16 with right upper and lower extremity weakness, sensory loss, and right hemineglect. Initial FIM 41. Beginning pre-gait activities with PT. Hemineglect +/- R visual field cut noted by OT. Mod A for bathing, max A for LB dressing. Beginning to have return of hip abduction/adduction per PT on 06/29/16. Continue physical and occupational therapies to optimize mobility and activities of daily living. * Expressive aphasia, treated per Speech and Language Pathology. Notably improved 06/29/16 with no word-finding deficit observed. * Hypertension, status post hypertensive emergency. On lisinopril 40 mg q. day , amlodipine 10 mg q. day, and labetalol 300 mg b.i.d tapered to 100 mg BID on ; BP up this morning 06/29/16. Continue to monitor. As the brain clears blood, his blood pressure will likely come down and labetalol will be tapered or discontinued if possible. Continue to monitor. * Insomnia. Continue trazodone 50 mg QHS beginning 06/25/16. * Depression? Continue to monitor. Not interested in medications at present. Counseling per COMMUNITY PLANNING TECHNICIAN. * Constipation has responded to laxatives. He will be monitored and the bowel program will be adjusted as needed. * Glaucoma in the left eye. Dorzolamide will be continued. * Anemia. Improving on CBC 06/24/16. * Superficial thrombophlebitis and deep venous thrombosis prophylaxis. Pharmacologic prophylaxis is contraindicated in the setting of a recent intraparenchymal hemorrhage. He will have CELE hose and at night he will have sequential compression devices on his legs. * Systemic inflammatory response syndrome has been improving. Infectious and metabolic etiologies were ruled out. Not tachycardic or febrile and WBCs improving on CBC 06/24/16. Leukocytosis resolved 07/01/16. BMP c/w slight dehydration 07/01/16, o/w wnl. Followup with neurosurgeon, Dr. Adriana Garcia week of 07/05/16. Lives in split-level home in [place]; can live on lower level but has a few stairs to enter the home. Goal to be able ot function at home rather than transfer to SNF or rehabilitation facility in [place]. Tentative discharge date of . Subjective: Feels too "hungover " with trazodone. Would like to try night off of the med. Denies pain or worsening neuro status. Objective: Vital Signs Temp Pulse Resp BP Pulse Ox 36.9 C 80 16 126/68 H 95 07/03/16 08:00 07/03/16 15:35 07/03/16 08:00 07/03/16 15:35 07/02/16 18:47 Laboratory Results 07/01/16 06:10 07/01/16 06:10 07/02/16 07/03/16 07/04/16 05:59 05:59 05:59 Intake Total 1690 1820 1594 Output Total 1625 1250 700 Balance 65 570 894 - Pending Discharge Pending Discharge Within 24 Hours: No Pending Discharge Within 48 Hours: No Physical Exam - Physical Exam General Appearance: alert, no apparent distress Neck: supple Respiratory: lungs clear, normal breath sounds Cardiac/Chest: regular rate, rhythm Abdomen: non-tender, soft Skin: warm/dry Neuro/Psych: alert, normal mood/affect, oriented x 3, motor weakness (right jamie flaccid), No cognition abnormalities, No speech abnormalities ICD10 Worksheet Patient Problems: Problems Problem Status Onset Cerebral hemorrhage Acute
[2016-07-04] MEDS: amLODIPine BESYLATE 5 MG TAB PO SCH (08:47)
[2016-07-04] MEDS: SENNOSIDES 1 TAB PO PRN (08:48)
[2016-07-04] MEDS: LISINOPRIL 40 MG TAB PO SCH (08:48)
[2016-07-04] MEDS: DORZOLAMIDE 2% OPTH DROPS LEFTEYE SCH ×2 (08:48→20:42)
[2016-07-04] MEDS: MULTIVITAMINS 1 EACH TAB PO SCH (08:48)
[2016-07-04] MEDS: POLYETHYLENE GLYCOL 3350 17 GM PKT PO PRN (08:49)
--- NOTE | 2016-07-04 11:24 | SOAPPROG ---
SOAP Progress Note Assessment/Plan: * Left parietal intraparenchymal hemorrhage on 06/16/16 with right upper and lower extremity weakness, sensory loss, and right hemineglect. Initial FIM 41. Beginning pre-gait activities with PT. Hemineglect +/- R visual field cut noted by OT. Mod A for bathing, max A for LB dressing. Beginning to have return of hip abduction/adduction per PT on 06/29/16. Continue physical and occupational therapies to optimize mobility and activities of daily living. * Expressive aphasia, treated per Speech and Language Pathology. Notably improved 06/29/16 with no word-finding deficit observed. * Hypertension, status post hypertensive emergency. On lisinopril 40 mg q. day , amlodipine 10 mg q. day, and labetalol 300 mg b.i.d tapered to 100 mg BID on ; BP up this morning 06/29/16. Continue to monitor. As the brain clears blood, his blood pressure will likely come down and labetalol will be tapered or discontinued if possible. Continue to monitor. * Insomnia. decreased trazodone to 25 mg QHS PRN beginning 07/04 * Depression? Continue to monitor. Not interested in medications at present. Counseling per OIL DISPATCHER. * Constipation has responded to laxatives. He will be monitored and the bowel program will be adjusted as needed. * Glaucoma in the left eye. Dorzolamide will be continued. * Anemia. Improving on CBC 06/24/16. * Superficial thrombophlebitis and deep venous thrombosis prophylaxis. Pharmacologic prophylaxis is contraindicated in the setting of a recent intraparenchymal hemorrhage. He will have CELE hose and at night he will have sequential compression devices on his legs. * Systemic inflammatory response syndrome has been improving. Infectious and metabolic etiologies were ruled out. Not tachycardic or febrile and WBCs improving on CBC 06/24/16. Leukocytosis resolved 07/01/16. BMP c/w slight dehydration 07/01/16, o/w wnl. Followup with neurosurgeon, Dr. Adriana Garcia week of 07/05/16. Lives in split-level home in [place]; can live on lower level but has a few stairs to enter the home. Goal to be able ot function at home rather than transfer to SNF or rehabilitation facility in [place]. Tentative discharge date of . Subjective: Some difficulty sleeping without trazodone last night. Willing to try lower dose tongiht. Will set it up prn. Denies pain or MICHAELS. Objective: Vital Signs Temp Pulse Resp BP Pulse Ox 36.4 C 86 12 114/87 H 93 07/04/16 08:00 07/04/16 08:00 07/04/16 08:00 07/04/16 08:48 07/04/16 08:00 Laboratory Results 07/01/16 06:10 07/01/16 06:10 07/03/16 07/04/16 07/05/16 05:59 05:59 05:59 Intake Total 1820 1894 640 Output Total 1250 1250 200 Balance 570 644 440 - Pending Discharge Pending Discharge Within 24 Hours: No Pending Discharge Within 48 Hours: No Physical Exam - Physical Exam General Appearance: alert, no apparent distress Neck: supple Respiratory: lungs clear, normal breath sounds Cardiac/Chest: regular rate, rhythm Abdomen: non-tender, soft Skin: warm/dry Neuro/Psych: alert, normal mood/affect, oriented x 3, motor weakness (right flaccid), No cognition abnormalities, No speech abnormalities ICD10 Worksheet Patient Problems: Problems Problem Status Onset Cerebral hemorrhage Acute
[2016-07-04] MEDS: traZODone 50 MG TAB PO PRN (20:41)
[2016-07-05] MEDS: LISINOPRIL 40 MG TAB PO SCH (08:33)
[2016-07-05] MEDS: amLODIPine BESYLATE 5 MG TAB PO SCH (08:33)
[2016-07-05] MEDS: MULTIVITAMINS 1 EACH TAB PO SCH (08:33)
[2016-07-05] MEDS: DORZOLAMIDE 2% OPTH DROPS LEFTEYE SCH ×2 (09:03→21:05)
--- NOTE | 2016-07-05 12:54 | SOAPPROG ---
SOAP Progress Note Assessment/Plan: Assessment/Plan: 66 yo M with stroke, 07/05 doing well with no new events or concerns. Low mood, but no SI, not interested in interventions at this point. Neuro stable. No changes to plan today. Stated goal is to discharge [facility]. * Left parietal intraparenchymal hemorrhage on 06/16/16 with right upper and lower extremity weakness, sensory loss, and right hemineglect. Initial FIM 41. Beginning pre-gait activities with PT. Hemineglect +/- R visual field cut noted by OT. Mod A for bathing, max A for LB dressing. Beginning to have return of hip abduction/adduction per PT on 06/29/16. Continue physical and occupational therapies to optimize mobility and activities of daily living. * Expressive aphasia, treated per Speech and Language Pathology. Notably improved 06/29/16 with no word-finding deficit observed. * Hypertension, status post hypertensive emergency. On lisinopril 40 mg q. day , amlodipine 10 mg q. day, and labetalol 300 mg b.i.d tapered to 100 mg BID on ; BP up this morning 06/29/16. Continue to monitor. As the brain clears blood, his blood pressure will likely come down and labetalol will be tapered or discontinued if possible. Continue to monitor. * Insomnia. decreased trazodone to 25 mg QHS PRN beginning 07/04 * Depression? Continue to monitor. Not interested in medications at present. Counseling per INVESTMENT ACCOUNTANT. * Constipation has responded to laxatives. He will be monitored and the bowel program will be adjusted as needed. * Glaucoma in the left eye. Dorzolamide will be continued. * Anemia. Improving on CBC 06/24/16. * Superficial thrombophlebitis and deep venous thrombosis prophylaxis. Pharmacologic prophylaxis is contraindicated in the setting of a recent intraparenchymal hemorrhage. He will have CELE hose and at night he will have sequential compression devices on his legs. * Systemic inflammatory response syndrome has been improving. Infectious and metabolic etiologies were ruled out. Not tachycardic or febrile and WBCs improving on CBC 06/24/16. Leukocytosis resolved 07/01/16. BMP c/w slight dehydration 07/01/16, o/w wnl. Followup with neurosurgeon, Dr. Adriana Garcia week of 07/05/16. Lives in split-level home in [place]; can live on lower level but has a few stairs to enter the home. Goal to be able ot function at home rather than transfer to SNF or rehabilitation facility in [place]. Tentative discharge date of . 07/05/16 12:51 Subjective: CC: mood No acute events overnight. Pt with low overall mood, no SI, not interested in talk or medications. Sleeping fair (7 hr, his normal), and anxious to dc home. Objective: Vital Signs Temp Pulse Resp BP Pulse Ox 36.8 C 85 16 126/78 H 92 07/05/16 08:00 07/05/16 08:00 07/05/16 08:00 07/05/16 08:33 07/05/16 08:00 Laboratory Results 07/01/16 06:10 07/01/16 06:10 07/04/16 07/05/16 07/06/16 05:59 05:59 05:59 Intake Total 1894 1600 600 Output Total 1250 1300 250 Balance 644 300 350 Physical Exam - Physical Exam General Appearance: alert, no apparent distress EENT: No scleral icterus (R), No scleral icterus (L) Respiratory: normal breath sounds, No respiratory distress Cardiac/Chest: normal peripheral pulses, regular rate, rhythm Skin: normal color, warm/dry Neuro/Psych: alert, No normal mood/affect (depressed mood and affect) ICD10 Worksheet Patient Problems: Problems Problem Status Onset Cerebral hemorrhage Acute
[2016-07-05] MEDS: traZODone 50 MG TAB PO PRN (21:04)
[2016-07-06] MEDS: LISINOPRIL 40 MG TAB PO SCH (08:01)
[2016-07-06] MEDS: amLODIPine BESYLATE 5 MG TAB PO SCH (08:02)
[2016-07-06] MEDS: MULTIVITAMINS 1 EACH TAB PO SCH (08:02)
[2016-07-06] MEDS: DORZOLAMIDE 2% OPTH DROPS LEFTEYE SCH ×2 (08:05→20:52)
--- NOTE | 2016-07-06 17:12 | SOAPPROG ---
SOAP Progress Note Assessment/Plan: Assessment: * Left parietal intraparenchymal hemorrhage on 06/16/16 with right upper and lower extremity weakness, sensory loss, and right hemineglect. Initial FIM 41. Has ambulated 10' at rail X 3. Hemineglect +/- R visual field cut noted by OT. Mod A for bathing, max A for LB dressing. Beginning to have return of hip abduction/adduction per PT on 06/29/16. Continue physical and occupational therapies to optimize mobility and activities of daily living. * Expressive aphasia, treated per Speech and Language Pathology. Notably improved 06/29/16 with no word-finding deficit observed. * Hypertension, status post hypertensive emergency. On lisinopril 40 mg q. day , amlodipine 10 mg q. day. Labetalol has been discontinued. Continue to monitor. * Insomnia. Continue trazodone 25 mg QHS. * Depression? Continue to monitor. Not interested in medications at present. Counseling per CERTIFIED DRUG COUNSELOR. * Constipation has responded to laxatives. He will be monitored and the bowel program will be adjusted as needed. * Glaucoma in the left eye. Dorzolamide will be continued. * Anemia. Improving on CBC 06/24/16. * Superficial thrombophlebitis and deep venous thrombosis prophylaxis. Pharmacologic prophylaxis is contraindicated in the setting of a recent intraparenchymal hemorrhage. He will have CELE hose and at night he will have sequential compression devices on his legs. * Systemic inflammatory response syndrome has been improving. Infectious and metabolic etiologies were ruled out. Not tachycardic or febrile and WBCs improving on CBC 06/24/16. Leukocytosis resolved 07/01/16. BMP c/w slight dehydration 07/01/16, o/w wnl. Lives in split-level home in [place]; can live on lower level but has a few stairs to enter the home. Goal to be able ot function at home rather than transfer to SNF or rehabilitation facility in [place]. Tentative discharge date of . 07/06/16 17:09 Subjective: No complaints, other than wishing his recovery would occur in "a quantum leap." Reports some retrn of movement to R arm and leg. No f/c, cough, dyspnea. Objective: Vital Signs Temp Pulse Resp BP Pulse Ox 36.8 C 74 16 128/72 H 93 07/06/16 06:50 07/06/16 06:50 07/06/16 06:50 07/06/16 08:02 07/06/16 06:50 Laboratory Results 07/01/16 06:10 07/01/16 06:10 07/05/16 07/06/16 07/07/16 05:59 05:59 05:59 Intake Total 1600 1800 680 Output Total 1300 1960 200 Balance 300 -160 480 Physical Exam - Physical Exam General Appearance: WD/WN, alert, no apparent distress Respiratory: normal breath sounds, No crackles, No rhonchi, No wheezing Cardiac/Chest: regular rate, rhythm, No diastolic murmur, No systolic murmur Skin: normal color, warm/dry Neuro/Psych: alert, normal mood/affect, oriented x 3, motor weakness (RUE & RLE) ICD10 Worksheet Patient Problems: Problems Problem Status Onset Cerebral hemorrhage Acute
[2016-07-06] MEDS: traZODone 50 MG TAB PO PRN (20:52)
[2016-07-07] MEDS: ACETAMINOPHEN 325 MG TAB PO PRN (03:28)
[2016-07-07] MEDS: amLODIPine BESYLATE 5 MG TAB PO SCH (08:21)
[2016-07-07] MEDS: DORZOLAMIDE 2% OPTH DROPS LEFTEYE SCH ×2 (08:21→21:38)
[2016-07-07] MEDS: SENNOSIDES 1 TAB PO PRN (08:23)
[2016-07-07] MEDS: LISINOPRIL 40 MG TAB PO SCH (08:23)
[2016-07-07] MEDS: MULTIVITAMINS 1 EACH TAB PO SCH (08:24)
--- NOTE | 2016-07-07 15:12 | SOAPPROG ---
SOAP Progress Note Assessment/Plan: Assessment: * Left parietal intraparenchymal hemorrhage on 06/16/16 with right upper and lower extremity weakness, sensory loss, and right hemineglect. Initial FIM 41 on 07/02/16. Has ambulated 10' at rail X 3. Hemineglect +/- R visual field cut noted by OT. Mod A for bathing, max A for LB dressing. Beginning to have return of hip abduction/adduction per PT on 06/29/16. Continue physical and occupational therapies to optimize mobility and activities of daily living. * Expressive aphasia, treated per Speech and Language Pathology. Notably improved 06/29/16 with no word-finding deficit observed. * Hypertension, status post hypertensive emergency. On lisinopril 40 mg q. day , amlodipine 10 mg q. day. Labetalol has been discontinued. Continue to monitor. * Insomnia. Continue trazodone 25 mg QHS. * Depression? Continue to monitor. Not interested in medications at present. Counseling per FAST FOOD CREW LEAD. * Constipation has responded to laxatives. He will be monitored and the bowel program will be adjusted as needed. * Glaucoma in the left eye. Dorzolamide will be continued. * Anemia. Improving on CBC 06/24/16. * Superficial thrombophlebitis and deep venous thrombosis prophylaxis. Pharmacologic prophylaxis is contraindicated in the setting of a recent intraparenchymal hemorrhage. He will have CELE hose and at night he will have sequential compression devices on his legs. * Systemic inflammatory response syndrome has been improving. Infectious and metabolic etiologies were ruled out. Not tachycardic or febrile and WBCs improving on CBC 06/24/16. Leukocytosis resolved 07/01/16. BMP c/w slight dehydration 07/01/16, o/w wnl. Lives in split-level home in [place]; can live on lower level but has a few stairs to enter the home. Goal to be able ot function at home rather than transfer to SNF or rehabilitation facility in [place]. 07/07/16 15:09 Subjective: No complaints. Feeling better. No f/c, cough, dyspnea. Sleeping well. Not in pain. No lightheadedness with standing. Objective: Vital Signs Temp Pulse Resp BP Pulse Ox 36.4 C 89 16 114/76 97 07/07/16 08:00 07/07/16 08:00 07/07/16 08:00 07/07/16 08:23 07/07/16 08:00 Laboratory Results 07/01/16 06:10 07/01/16 06:10 07/06/16 07/07/16 07/08/16 05:59 05:59 05:59 Intake Total 1800 1130 945 Output Total 1960 1125 Balance -160 5 945 Physical Exam - Physical Exam General Appearance: WD/WN, alert, no apparent distress Respiratory: normal breath sounds, No crackles, No rhonchi, No wheezing Cardiac/Chest: regular rate, rhythm, No edema Skin: normal color, warm/dry Neuro/Psych: alert, normal mood/affect, oriented x 3, motor weakness (RUE & RLE) ICD10 Worksheet Patient Problems: Problems Problem Status Onset Cerebral hemorrhage Acute
[2016-07-07] MEDS: traZODone 50 MG TAB PO PRN (22:11)
[2016-07-08] MEDS: amLODIPine BESYLATE 5 MG TAB PO SCH (08:22)
[2016-07-08] MEDS: MULTIVITAMINS 1 EACH TAB PO SCH (08:23)
[2016-07-08] MEDS: LISINOPRIL 40 MG TAB PO SCH (08:23)
[2016-07-08] MEDS: DORZOLAMIDE 2% OPTH DROPS LEFTEYE SCH ×2 (08:40→21:32)
--- NOTE | 2016-07-08 13:20 | SOAPPROG ---
SOAP Progress Note Assessment/Plan: Assessment: * Left parietal intraparenchymal hemorrhage on 06/16/16 with right upper and lower extremity weakness, sensory loss, and right hemineglect. Improving on head CT 07/08/16 but hemorrhage and mass effect on ventricle and L shift (down from 4 mm to 1 mm) still present. Initial FIM 41 on 07/02/16. Has ambulated 10' at rail X 3. Hemineglect +/- R visual field cut noted by OT. Mod A for bathing , max A for LB dressing. Beginning to have return of hip abduction/adduction per PT on 06/29/16. Continue physical and occupational therapies to optimize mobility and activities of daily living. * Expressive aphasia, treated per Speech and Language Pathology. Notably improved 06/29/16 with no word-finding deficit observed. * Hypertension, status post hypertensive emergency. On lisinopril 40 mg q. day , amlodipine 10 mg q. day. Labetalol has been discontinued. Continue to monitor. * Insomnia. Continue trazodone 25 mg QHS. * Depression? Continue to monitor. Not interested in medications at present. Counseling per TRANSCRIPT CLERK. * Constipation has responded to laxatives. He will be monitored and the bowel program will be adjusted as needed. * Glaucoma in the left eye. Dorzolamide will be continued. * Anemia. Improving on CBC 06/24/16. * Superficial thrombophlebitis and deep venous thrombosis prophylaxis. Pharmacologic prophylaxis is contraindicated in the setting of a recent intraparenchymal hemorrhage. He will have CELE hose and at night he will have sequential compression devices on his legs. * Systemic inflammatory response syndrome has been improving. Infectious and metabolic etiologies were ruled out. Not tachycardic or febrile and WBCs improving on CBC 06/24/16. Leukocytosis resolved 07/01/16. BMP c/w slight dehydration 07/01/16, o/w wnl. Lives in split-level home in [place]; can live on lower level but has a few stairs to enter the home. Goal to be able ot function at home rather than transfer to SNF or rehabilitation facility in [place]. 07/08/16 13:17 Subjective: No complaints. Reports occasional sensation of something hapening RUE but otherwise notes no return of motor function. No f/c, cough/dyspnea. Objective: Vital Signs Temp Pulse Resp BP Pulse Ox 36.6 C 69 16 123/83 H 95 07/08/16 06:48 07/08/16 06:48 07/08/16 06:48 07/08/16 08:23 07/08/16 06:48 Laboratory Results 07/01/16 06:10 07/01/16 06:10 07/07/16 07/08/16 07/09/16 05:59 05:59 05:59 Intake Total 1130 1181 500 Output Total 1125 600 Balance 5 581 500 Physical Exam - Physical Exam General Appearance: WD/WN, alert, no apparent distress Respiratory: No respiratory distress, No accessory muscle use Skin: normal color, warm/dry Neuro/Psych: alert, normal mood/affect, oriented x 3, motor weakness (RUE flaccid paralysis) ICD10 Worksheet Patient Problems: Problems Problem Status Onset Cerebral hemorrhage Acute
[2016-07-08] MEDS: traZODone 50 MG TAB PO PRN (21:31)
[2016-07-09] MEDS: amLODIPine BESYLATE 5 MG TAB PO SCH (08:45)
[2016-07-09] MEDS: MULTIVITAMINS 1 EACH TAB PO SCH (08:45)
[2016-07-09] MEDS: DORZOLAMIDE 2% OPTH DROPS LEFTEYE SCH ×2 (08:45→22:02)
[2016-07-09] MEDS: LISINOPRIL 40 MG TAB PO SCH (08:45)
--- NOTE | 2016-07-09 14:00 | SOAPPROG ---
SOAP Progress Note Assessment/Plan: Assessment: * Left parietal intraparenchymal hemorrhage on 06/16/16 with right upper and lower extremity weakness, sensory loss, and right hemineglect. Improving on head CT 07/08/16 but hemorrhage and mass effect on ventricle and L shift (down from 4 mm to 1 mm) still present. Initial FIM 54 on 07/02/16; improved to 65 on . Variable ADLs, SBA to Min A bed mobility, SBA to mod A for transfers. Still in pre-gait activities UB dressing set-up and supervision; LB n=min A for standing balance. Hemineglect without R visual field cut noted by OT. Continue physical and occupational therapies to optimize mobility and activities of daily living. * Cognitive impairment, with deficits to math, reading, word-retrieval, working memory, following multi-step commands. Gets frustrated re deficits and has poor repair skills. Continue CHANGE MANAGEMENT. * Hypertension, status post hypertensive emergency. On lisinopril 40 mg q. day , amlodipine 10 mg q. day. Labetalol has been discontinued. Continue to monitor. * Insomnia. Continue trazodone 25 mg QHS. * Depression? Continue to monitor. Not interested in medications at present. Counseling per ANSWERING SERVICE OPERATOR. * Constipation has responded to laxatives. He will be monitored and the bowel program will be adjusted as needed. * Glaucoma in the left eye. Dorzolamide will be continued. * Anemia. Improving on CBC 06/24/16. * Superficial thrombophlebitis and deep venous thrombosis prophylaxis. Pharmacologic prophylaxis is contraindicated in the setting of a recent intraparenchymal hemorrhage. He will have CELE hose and at night he will have sequential compression devices on his legs. * Systemic inflammatory response syndrome has been improving. Infectious and metabolic etiologies were ruled out. Not tachycardic or febrile and WBCs improving on CBC 06/24/16. Leukocytosis resolved 07/01/16. BMP c/w slight dehydration 07/01/16, o/w wnl. Attended staffing, 15 min. D/W case mgmt, nursing, PT, OT, CHANGE MANAGEMENT. pharmacist, hydraulics engineer. Lives in split-level home in [place]; can live on lower level but has a few stairs to enter the home. Goal to be able ot function at home rather than transfer to SNF or rehabilitation facility in [place]. Will need extrensionof Medicare stay beyond 18 days. Plan for discharge 07/23/16. 07/09/16 14:00 Subjective: No complaints. Saw Neurosurgeon Br. Garcia in follow-up this morning. Thinks he has some return of movement to the R leg. Objective: Vital Signs Temp Pulse Resp BP Pulse Ox 36.7 C 74 16 125/77 H 95 07/09/16 07:11 07/09/16 07:11 07/09/16 07:11 07/09/16 08:45 07/09/16 07:11 Laboratory Results 07/01/16 06:10 07/01/16 06:10 07/08/16 07/09/16 07/10/16 05:59 05:59 05:59 Intake Total 1181 1500 780 Output Total 600 1500 400 Balance 581 0 380 - Time Spent With Patient Time Spent With Patient: Greater than 35 minutes floor time today, including more than 50% of time in coordination of care during staffing, and counseling patient. Physical Exam - Physical Exam General Appearance: WD/WN, alert, no apparent distress Respiratory: No respiratory distress, No accessory muscle use Skin: normal color, warm/dry Neuro/Psych: alert, normal mood/affect, oriented x 3, abnormal gait (Ambulating in Lite Gait, PT advancing R leg, minimal weightbearing on R) ICD10 Worksheet Patient Problems: Problems Problem Status Onset Cerebral hemorrhage Acute
[2016-07-09] MEDS: traZODone 50 MG TAB PO PRN (21:57)
[2016-07-10] MEDS: LISINOPRIL 40 MG TAB PO SCH (09:49)
[2016-07-10] MEDS: MULTIVITAMINS 1 EACH TAB PO SCH (09:49)
[2016-07-10] MEDS: amLODIPine BESYLATE 5 MG TAB PO SCH (09:51)
[2016-07-10] MEDS: DORZOLAMIDE 2% OPTH DROPS LEFTEYE SCH ×2 (09:52→20:33)
--- NOTE | 2016-07-10 11:07 | SOAPPROG ---
SOAP Progress Note Assessment/Plan: Assessment: Assessment: * Left parietal intraparenchymal hemorrhage on 06/16/16 with right upper and lower extremity weakness, sensory loss, and right hemineglect. Improving on head CT 07/08/16 but hemorrhage and mass effect on ventricle and L shift (down from 4 mm to 1 mm) still present. Initial FIM 54 on 07/02/16; improved to 65 on . Variable ADLs, SBA to Min A bed mobility, SBA to mod A for transfers. Still in pre-gait activities UB dressing set-up and supervision; LB n=min A for standing balance. Hemineglect without R visual field cut noted by OT. Continue physical and occupational therapies to optimize mobility and activities of daily living. * Cognitive impairment, with deficits to math, reading, word-retrieval, working memory, following multi-step commands. Gets frustrated re deficits and has poor repair skills. Continue DIRECTOR SANITATION BUREAU. * Hypertension, status post hypertensive emergency. CURRENT BP IS STABLE On lisinopril 40 mg q. day, amlodipine 10 mg q. day. Labetalol has been discontinued. Continue to monitor. * Insomnia. Continue trazodone 25 mg QHS. BRIGHT AFFECT THIS AM * Depression? Continue to monitor. Not interested in medications at present. Counseling per ORACLE SOA CONSULTANT. * Constipation has responded to laxatives. He will be monitored and the bowel program will be adjusted as needed. * Glaucoma in the left eye. Dorzolamide will be continued. * RIGHT FOOT DROP- D/W PT THAT HE MIGHT BENEFIT FORM DOUBLE UPRIGHT AFO WITH DFA TO HELP CONTROL BOTH HIP AND KNEE INSTABILTY. * Anemia. Improving on CBC 06/24/16. * Superficial thrombophlebitis and deep venous thrombosis prophylaxis. Pharmacologic prophylaxis is contraindicated in the setting of a recent intraparenchymal hemorrhage. He will have CELE hose and at night he will have sequential compression devices on his legs. NEGATIVE HOMMAN'S TEST RIGHT AND LEFT CALF. * Systemic inflammatory response syndrome has been improving. Infectious and metabolic etiologies were ruled out. Not tachycardic or febrile and WBCs improving on CBC 06/24/16. Leukocytosis resolved 07/01/16. BMP c/w slight dehydration 07/01/16, o/w wnl. Plan: 07/10/16 11:00 Subjective: No c/o this am. Reports RLE strength is slowly improving. Objective: Vital Signs Temp Pulse Resp BP Pulse Ox 36.3 C 84 16 124/62 H 91 L 07/10/16 06:21 07/10/16 06:21 07/10/16 06:21 07/10/16 09:49 07/10/16 06:21 Laboratory Results 07/01/16 06:10 07/01/16 06:10 07/09/16 07/10/16 07/11/16 05:59 05:59 05:59 Intake Total 1500 1440 472 Output Total 1500 1900 Balance 0 -460 472 Physical Exam - Physical Exam General Appearance: WD/WN, alert, no apparent distress Respiratory: lungs clear, normal breath sounds Abdomen: non-tender, soft, rebound Skin: normal color, warm/dry Extremities: No swelling, No Andrew's sign Neuro/Psych: alert, normal mood/affect, oriented x 3, motor weakness (He can activiate the right iliopsoas and quadriceps. Complete right foor drop.), No no motor/sensory deficits ICD10 Worksheet Patient Problems: Problems Problem Status Onset Cerebral hemorrhage Acute
[2016-07-10] MEDS: ACETAMINOPHEN 325 MG TAB PO PRN (18:52)
[2016-07-10] MEDS: traZODone 50 MG TAB PO PRN (20:33)
[2016-07-10 21:44] LABS: COLOR YELLOW; LEUKOCYTE ESTERASE,URINE NEGATIVE (NEGATIVE); NITRITE,URINE NEGATIVE (NEGATIVE)
[2016-07-11 07:43] VITALS: BP 125/85; PULSE 115; RESP 17; TEMP 98.6; O2SAT 97
--- NOTE | 2016-07-11 09:36 | SOAPPROG ---
SOAP Progress Note Assessment/Plan: Assessment: Assessment: * Left parietal intraparenchymal hemorrhage on 06/16/16 with right upper and lower extremity weakness, sensory loss, and right hemineglect. Improving on head CT 07/08/16 but hemorrhage and mass effect on ventricle and L shift (down from 4 mm to 1 mm) still present. Initial FIM 54 on 07/02/16; improved to 65 on . Variable ADLs, SBA to Min A bed mobility, SBA to mod A for transfers. Still in pre-gait activities UB dressing set-up and supervision; LB n=min A for standing balance. Hemineglect without R visual field cut noted by OT. Continue physical and occupational therapies to optimize mobility and activities of daily living. * TACHYCARDIA- CALLED BY NURSING LAST PM FOR HR 120. PATIENT REPORTED ASYMPTOMATIC. THIS AM, HR 140. PATIENT ASYMPTOMATIC BUT NOW ANXIOUS. LUNGS ARE CLEAR, LOWER EXTREMITY EXAM NO OBVIOUS SIGNS OF DVT. NO LOWER EXTREMITY EDEMA. BP STABLE. WILL OBTAIN STAT 12 LEAD EKG TO LOOK FOR NARROW VS WIDE COMPLEX SINUS TACH VERSUS AFIB. NURSING AND PATIENT.MADE AWARE. LABS FROM 07/01 REVIEWED H/H 13.2/39.5 NA 136,K 4.4. WILL ALSO REPEAT THESE LABS NOW. * Cognitive impairment, with deficits to math, reading, word-retrieval, working memory, following multi-step commands. Gets frustrated re deficits and has poor repair skills. Continue CT MRI TECHNOLOGIST. * Hypertension, status post hypertensive emergency. CURRENT BP IS STABLE On lisinopril 40 mg q. day, amlodipine 10 mg q. day. Labetalol has been discontinued. Continue to monitor. * Insomnia. Continue trazodone 25 mg QHS. BRIGHT AFFECT THIS AM * Depression? Continue to monitor. Not interested in medications at present. Counseling per ENGINEERING DRAFTER. * Constipation has responded to laxatives. He will be monitored and the bowel program will be adjusted as needed. * Glaucoma in the left eye. Dorzolamide will be continued. * RIGHT FOOT DROP- D/W PT THAT HE MIGHT BENEFIT FORM DOUBLE UPRIGHT AFO WITH DFA TO HELP CONTROL BOTH HIP AND KNEE INSTABILTY. * Anemia. Improving on CBC 06/24/16. * Superficial thrombophlebitis and deep venous thrombosis prophylaxis. Pharmacologic prophylaxis is contraindicated in the setting of a recent intraparenchymal hemorrhage. He will have CELE hose and at night he will have sequential compression devices on his legs. NEGATIVE HOMMAN'S TEST RIGHT AND LEFT CALF. * Systemic inflammatory response syndrome has been improving. Infectious and metabolic etiologies were ruled out. Not tachycardic or febrile and WBCs improving on CBC 06/24/16. Leukocytosis resolved 07/01/16. BMP c/w slight dehydration 07/01/16, o/w wnl. Plan: 07/10/16 11:00 07/11/16 09:39 Subjective: He is anxious this am due to increased HR. He denies chest pain, angina like sxs,SOB Objective: Vital Signs Temp Pulse Resp BP Pulse Ox 37.0 C 115 H 17 125/85 H 97 07/11/16 07:42 07/11/16 07:42 07/11/16 07:42 07/11/16 07:42 07/11/16 07:42 Laboratory Results 07/01/16 06:10 07/01/16 06:10 07/10/16 07/11/16 07/12/16 05:59 05:59 05:59 Intake Total 1440 1126 Output Total 1900 775 Balance -460 351 Physical Exam - Physical Exam General Appearance: WD/WN, alert, mild distress EENT: PERRL/EOMI Respiratory: lungs clear, normal breath sounds, No wheezing Cardiac/Chest: tachycardia (Heart rate is regular), No edema, No JVD Abdomen: non-tender, soft Skin: normal color, warm/dry, No cyanosis, No diaphoresis (Rig), No mottled, No pallor Neuro/Psych: alert, oriented x 3 (Anxious. Right hemiplegia) ICD10 Worksheet Patient Problems: Problems Problem Status Onset Cerebral hemorrhage Acute
[2016-07-11] MEDS: LISINOPRIL 40 MG TAB PO SCH (10:00)
[2016-07-11] MEDS: MULTIVITAMINS 1 EACH TAB PO SCH (10:00)
[2016-07-11] MEDS: amLODIPine BESYLATE 5 MG TAB PO SCH (10:00)
[2016-07-11] MEDS: DORZOLAMIDE 2% OPTH DROPS LEFTEYE SCH (10:00)
[2016-07-11 12:44] LABS: % IMMATURE GRANULYOCYTES 0.4 % (0.0-1.1); ABSOLUTE IMMATURE GRANULOCYTES 0.04 10^3/uL (0.00-0.10); ADD DIFF? NO; ADD MORPH? NO; ADD SCAN? NO; ATYPICAL LYMPHOCYTE FLAG 0 (0-99); FRAGMENT RBC FLAG 0 (0-99); HEMATOCRIT 43.9 % (40.0-51.0); HEMOGLOBIN 14.3 g/dL (13.7-17.5); LEFT SHIFT FLG 20 (0-99); LIPEMIA HEMOLYSIS FLAG 80 (0-99); MEAN CELL HEMOGLOBIN 29.5 pg (27.9-34.1); MEAN CELL HEMOGLOBIN CONCENTR. 32.6 g/dL (32.4-36.7); MEAN CELL VOLUME 90.7 fL (81.5-99.8); MEAN PLATELET VOLUME 11.1 fL (8.7-11.7); PLATELET CLUMPS FLAG 10 (0-99); PLATELET COUNT 226 10^3/uL (150-400); RED BLOOD CELL COUNT 4.84 10^6/uL (4.40-6.38); RED CELL DISTRIBUTION WIDTH 12.5 % (11.5-15.2)
[2016-07-11 13:00] LABS: ANION GAP 10 mEq/L (8-16); CALCIUM 9.5 mg/dL (8.5-10.4); CARBON DIOXIDE 28 mEq/l (22-31); CHLORIDE 101 mEq/L (97-110); CREATININE 0.9 mg/dL (0.7-1.3); GLOMERULAR FILTRATION RATE > 60; GLUCOSE 184 mg/dL (70-100); POTASSIUM 4.2 mEq/L (3.5-5.2); SODIUM 139 mEq/L (134-144)
== END 2016-07-11 12:00 | disposition short-term general hospital (02) | DRG 56 ==
LOC: BREH 06-23 14:59
PROVIDERS: ADMIT Internal Medicine; ATTEND Internal Medicine
PROC: F07M3ZZ Motor Function Treatment of Musculoskeletal System - Whole Body (ICD-10-PCS; principal; 2016-06-23)
PROC: F08Z7ZZ Vocational Activities and Functional Community or Work Reintegration Skills Treatment (ICD-10-PCS; principal; 2016-06-23)
PROC: F0636ZZ Communicative/Cognitive Integration Skills Treatment of Neurological System - Whole Body (ICD-10-PCS; principal; 2016-06-23)
DX: I69.151 Hemiplegia and hemiparesis following nontraumatic intracerebral hemorrhage affecting right dominant side (principal); G93.6 Cerebral edema; R65.10 Systemic inflammatory response syndrome (SIRS) of non-infectious origin without acute organ dysfunction; I69.120 Aphasia following nontraumatic intracerebral hemorrhage; I69.191 Dysphagia following nontraumatic intracerebral hemorrhage; I69.198 Other sequelae of nontraumatic intracerebral hemorrhage; R44.8 Other symptoms and signs involving general sensations and perceptions; D64.9 Anemia, unspecified; I10 Essential (primary) hypertension; H40.9 Unspecified glaucoma; G47.00 Insomnia, unspecified; K59.00 Constipation, unspecified; R00.0 Tachycardia, unspecified
CPT/HCPCS: 92507-GN; 92522-GN; 92526-GN; 92610-GN; 97032-GP; 97110-GO; 97110-GP; 97112-GO; 97112-GP; 97116-GP; 97162-GP; 97166-GO; 97530-GO; 97530-GP; 97532-GO; 97535-GO

== ENCOUNTER → 2016-07-08 | Outpatient (CLI) | payer OTHER, BC | LOC: FIMAGING 09:34 | PROVIDERS: ATTEND Neurological Surgery | DX: I61.8 Other nontraumatic intracerebral hemorrhage (principal); Z09 Encounter for follow-up examination after completed treatment for conditions other than malignant neoplasm ==

== ENCOUNTER 2016-07-11 12:19 | Observation (INO) | payer OTHER, BC ==
--- NOTE | 2016-07-11 12:30 | CPEKG ---
Heart Rate: 78 RR Interval: 769 P-R Interval: 120 QRSD Interval: 88 QT Interval: 376 QTC Interval: 429 P [place]: 71 QRS [place]: 64 T Wave [place]: 54 EKG Severity - ABNORMAL ECG - EKG Impression: SINUS RHYTHM EKG Impression: MULTIPLE VENTRICULAR PREMATURE COMPLEXES EKG Impression: RIGHT ATRIAL ABNORMALITY Electronically Signed By: Gary Thomas 11-Jul-2016 15:20:52
--- NOTE | 2016-07-11 12:32 | EDPHY ---
H & P Source: Patient, Family, Old records Exam Limitations: No limitations - Medical/Surgical History Hx Asthma: No Hx Chronic Respiratory Disease: No Hx Diabetes: No Hx Cardiac Disease: No Hx Renal Disease: No Hx Cirrhosis: No Hx Alcoholism: No Hx HIV/AIDS: No Hx Splenectomy or Spleen Trauma: No Other PMH: enlarged prostate. Ocular Pressure - Social History Smoking Status: Never smoked HPI/ROS: CHIEF COMPLAINT: Tachycardia, palpitations HISTORY OF PRESENT ILLNESS: Patient arrives from rehabilitation facility with reports of intermittent tachycardia and palpitations. With the past 24-36 hours he has had several episodes of his heart racing. 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 He has been there for nearly 2 weeks. He is not on constant monitoring there. However, he reportedly was found to have a tachycardic rate on pulse oximetry. EKG was obtained here to return to sinus rhythm. During this time he was feeling that his heart was racing and having palpitations. He had no chest pain or shortness of breath. Had no fever or chills. He said no return of his stroke- like symptoms. At time of my examination, he has no complaints of the palpitations or tachycardia. No previous incidence of atrial fibrillation. He was discharged here with diagnosis of intraparenchymal hemorrhage in the parietal lobe. He has residual right extremity near paralysis with slow improvement at rehab. No other associated complaints or modifying factors. REVIEW OF SYSTEMS: Ten systems reviewed and are negative unless otherwise noted in the HPI PERTINENT MEDICAL HISTORY: Hemorrhagic stroke May 2016 EXAMINATION General Appearance: Alert, no distress Head: normocephalic, atraumatic Eyes: Pupils equal and round, no conjunctival pallor or injection. EOMs intact. ENT, Mouth: Mucous membranes moist. Uvula midline. Neck: Normal inspection, supple, non-tender Respiratory: Lungs are clear to auscultation. No wheezing, rhonchi or crackles. Cardiovascular: Regular rate and rhythm. No murmur. Pulses intact distally in symmetrically. Gastrointestinal: Abdomen is soft and nontender Back: non-tender, no bony abnormalities Neurological: A&O, nonfocal. Strength is 5/5 in the left extremities. There is baseline paralysis on the right arm and leg. Skin: Warm and dry, no rash Extremities: Nontender, no pedal edema Psychiatric: Mood and affect normal DIFFERENTIAL DIAGNOSES: Including but not limited to paroxysmal atrial fibrillation, paroxysmal A flutter, paroxysmal ventricular tachycardia, palpitations, ACS, dehydration, electrolyte abnormality MDM: 12:29 p.m. Intermittent tachycardia and palpitations over the past 24-36 hours. He only describes the sensation of palpitations and no actual chest pain, dyspnea or difficulty breathing. No headache. No numbness or tingling. No changes in his right-sided weakness. No confusion or slurred speech. Vital signs are stable at time of my examination. EKG is currently being performed. 12:55 p.m. Notified by radiologist Dr. Nguyen. There is an area of sclerosis in the left scapula. This was visualized on the CT scan of May. No previous imaging for comparison. He recommends that this be worked up further for the possibility of cancerous lesion versus bone island. 1:38 p.m. Laboratory studies are all within normal limits. I have notified patient of the incidental finding of the left scapula. He informs me that he has an old injury to the area which this may be related. I have also discussed the case with the hospitalist, the patient will be admitted for observation. Patient is comfortable with this plan and he is admitted in stable condition. SUPERVISION: This patient was independently evaluated without direct examination by the attending physician. Case was discussed with attending physician. Case discussed with Dr. Thomas ([facility]) Constitutional: Initial Vital Signs Temperature (C) 36.8 C 07/11/16 12:37 Heart Rate 88 07/11/16 12:37 Respiratory Rate 22 H 07/11/16 12:37 Blood Pressure 158/96 H 07/11/16 12:37 O2 Sat (%) 91 L 07/11/16 12:37 O2 Delivery Mode Room Air Allergies/Adverse Reactions: No Known Allergies Allergy (Unverified 06/16/16 05:58) Home Medications: Medication Instructions Recorded Dorzolamide 2% [Trusopt 2% (*)] 1 drops LEFTEYE BID 06/16/16 Herbals/Supplements -Info Only 1 ea PO DAILY18 06/16/16 Multivitamins [Multivitamin (*)] 1 each PO DAILY 06/16/16 Acetaminophen [Tylenol 325mg (*)] 650 mg PO Q4 PRN #0 tab 06/23/16 Bisacodyl [Bisacodyl (*)] 5 mg PO PRN PRN #0 tab 06/23/16 Labetalol HCl [Trandate 100 mg (*)] 300 mg PO BID tab 06/23/16 Lisinopril [Zestril 40 mg (*)] 40 mg PO DAILY tab 06/23/16 Magnesium Hydroxide [Milk of 30 ml PO DAILY PRN #30 oral.susp 06/23/16 Magnesia] Polyethylene Glycol 3350 [Miralax 17 gm PO DAILY PRN #0 pkt 06/23/16 17 gm (*)] Sennosides/Docusate Sodium 1 - 2 tab PO BID tab 06/23/16 [Senokot-S] Sodium Cl Nasal [[place] (*)] 1 spray EACHNARE PRN PRN #0 btl 06/23/16 amLODIPine BESYLATE [Norvasc 5 mg 10 mg PO DAILY tab 06/23/16 (*)] Medical Decision Making - Diagnostics Imaging: Imaging Impressions Chest X-Ray 07/11/16 12:28 Impression: 1. No acute findings in the chest. 2. Indeterminate sclerosis in the left scapula. Metastasis cannot be excluded. Recommend checking PSA. Findings discussed with Austin Rogers PA-C on July 11, 2016 at 12:52 p.m. ED Course/Re-evaluation: I did not see the patient while he was in the emergency department. However his care was discussed with the PA while the patient was in the department. I agree with treatment plan and management (Gary Thomas) - Data Points Laboratory Results: Laboratory Results 07/11/16 12:25 07/11/16 12:25 07/11/16 07/11/16 07/11/16 12:25 12:25 12:25 WBC 11.83 10^3/uL H 10^3/uL (3.80-9.50) RBC 5.04 10^6/uL 10^6/uL (4.40-6.38) Hgb 15.2 g/dL g/dL (13.7-17.5) Hct 45.9 % % (40.0-51.0) MCV 91.1 fL fL (81.5-99.8) MCH 30.2 pg pg (27.9-34.1) MCHC 33.1 g/dL g/dL (32.4-36.7) RDW 12.5 % % (11.5-15.2) Plt Count 233 10^3/uL 10^3/uL (150-400) MPV 10.7 fL fL (8.7-11.7) Neut % (Auto) 74.5 % H % (39.3-74.2) Lymph % (Auto) 14.5 % L % (15.0-45.0) [place] % (Auto) 9.4 % % (4.5-13.0) Eos % (Auto) 0.8 % % (0.6-7.6) Baso % (Auto) 0.4 % % (0.3-1.7) Nucleat RBC Rel Count 0.0 % % (0.0-0.2) Absolute Neuts (auto) 8.81 10^3/uL H 10^3/uL (1.70-6.50) Absolute Lymphs (auto) 1.71 10^3/uL 10^3/uL (1.00-3.00) Absolute Monos (auto) 1.11 10^3/uL H 10^3/uL (0.30-0.80) Absolute Eos (auto) 0.10 10^3/uL 10^3/uL (0.03-0.40) Absolute Basos (auto) 0.05 10^3/uL 10^3/uL (0.02-0.10) Absolute Nucleated RBC 0.00 10^3/uL 10^3/uL (0-0.01) Immature Gran % 0.4 % % (0.0-1.1) Immature Gran # 0.05 10^3/uL 10^3/uL (0.00-0.10) PT 13.9 SEC SEC (12.0-15.0) INR 1.08 (0.83-1.16) APTT 27.0 SEC SEC (23.0-38.0) Sodium 140 mEq/L mEq/L (134-144) Potassium 4.2 mEq/L mEq/L (3.5-5.2) Chloride 102 mEq/L mEq/L (97-110) Carbon Dioxide 28 mEq/l mEq/l (22-31) Anion Gap 10 mEq/L mEq/L (8-16) BUN 20 mg/dL mg/dL (7-23) Creatinine 0.8 mg/dL mg/dL (0.7-1.3) Estimated GFR > 60 Glucose 95 mg/dL mg/dL (70-100) Calcium 9.8 mg/dL mg/dL (8.5-10.4) Magnesium 2.0 mg/dL mg/dL (1.6-2.3) Troponin I < 0.012 ng/mL ng/mL (0-0.034) NT-Pro-B Natriuret Pep 414 pg/mL H pg/mL (0-125) TSH 1.310 uIU/mL uIU/mL (0.465-4.680) Departure - Departure Disposition: [facility] Inpatient Acute Clinical Impression: Palpitations, Paroxysmal tachycardia Condition: Good
[2016-07-11 12:41] LABS: % IMMATURE GRANULYOCYTES 0.4 % (0.0-1.1); ABSOLUTE IMMATURE GRANULOCYTES 0.05 10^3/uL (0.00-0.10); ADD DIFF? NO; ADD MORPH? NO; ADD SCAN? NO; ATYPICAL LYMPHOCYTE FLAG 0 (0-99); FRAGMENT RBC FLAG 0 (0-99); HEMATOCRIT 45.9 % (40.0-51.0); HEMOGLOBIN 15.2 g/dL (13.7-17.5); LEFT SHIFT FLG 10 (0-99); LIPEMIA HEMOLYSIS FLAG 80 (0-99); MEAN CELL HEMOGLOBIN 30.2 pg (27.9-34.1); MEAN CELL HEMOGLOBIN CONCENTR. 33.1 g/dL (32.4-36.7); MEAN CELL VOLUME 91.1 fL (81.5-99.8); MEAN PLATELET VOLUME 10.7 fL (8.7-11.7); PLATELET CLUMPS FLAG 20 (0-99); PLATELET COUNT 233 10^3/uL (150-400); RED BLOOD CELL COUNT 5.04 10^6/uL (4.40-6.38); RED CELL DISTRIBUTION WIDTH 12.5 % (11.5-15.2)
[2016-07-11 12:50] LABS: INR 1.08 (0.83-1.16); PROTIME(PATIENT) 13.9 SEC (12.0-15.0)
[2016-07-11 13:01] LABS: ANION GAP 10 mEq/L (8-16); CALCIUM 9.8 mg/dL (8.5-10.4); CARBON DIOXIDE 28 mEq/l (22-31); CHLORIDE 102 mEq/L (97-110); CREATININE 0.8 mg/dL (0.7-1.3); GLOMERULAR FILTRATION RATE > 60; GLUCOSE 95 mg/dL (70-100); POTASSIUM 4.2 mEq/L (3.5-5.2); SODIUM 140 mEq/L (134-144)
[2016-07-11 13:12] LABS: TROPONIN I < 0.012 ng/mL (0-0.034)
[2016-07-11] MEDS ORDERED: oxyCODONE IR 5 MG TAB PO PRN (15:14)
[2016-07-11] MEDS ORDERED: ONDANSETRON DISINTEGRATING 4 MG TAB PO PRN (15:14)
[2016-07-11] MEDS ORDERED: ACETAMINOPHEN 325 MG TAB PO PRN ×2 (15:14→15:18)
[2016-07-11] MEDS ORDERED: ONDANSETRON 4 MG/2 ML VIAL IVP PRN (15:14)
[2016-07-11] MEDS ORDERED: SODIUM CL NASAL 45 ML BTL EACHNARE PRN (15:18)
[2016-07-11] MEDS ORDERED: MAGNESIUM HYDROXIDE 30 ML UDCUP PO PRN (15:18)
[2016-07-11] MEDS ORDERED: POLYETHYLENE GLYCOL 3350 17 GM PKT PO PRN (15:18)
[2016-07-11] MEDS ORDERED: BISACODYL 5 MG EC TAB PO PRN (15:18)
--- NOTE | 2016-07-11 15:26 | PDGENHP ---
History and Physical - Chief Complaint tachycardia - History of Present Illness 66 yo M with PMH of recent ICH in the setting of hypertensive emergency with residual right sided hemiparesis currently in IP rehab at [facility], presenting with tachycardia that had been present at rehab overnight. He notes that he was not aware of the tachycardia and had essentially no sxs, he had felt very well yesterday and was encouraged that he was improving in terms of his rehab goals and had regained some movement in his right thumb and sensation in his right thigh. He has not had chest pain, fever or chills, shortness of breath, pains in his legs. His HR has been normal since arrival here in the ER, and he again remains asymptomatic. He does have frequent PVCs and notes he has had that his whole life and given that he has previously been reassured that this is a benign rhythm, he has not had concerns about it. History Information - Allergies/Home Medication List Allergies/Adverse Reactions: No Known Allergies Allergy (Unverified 06/16/16 05:58) Home Medications: Dorzolamide 2% [Trusopt 2% (*)] 1 drops LEFTEYE BID 06/16/16 [Last Taken 10:00] Herbals/Supplements -Info Only 1 ea PO DAILY18 06/16/16 [Last Taken Unknown] Multivitamins [Multivitamin (*)] 1 each PO DAILY 06/16/16 [Last Taken 07/11/16 10:00] I have personally reviewed and updated: family history, medical history, social history, surgical history - Past Medical History CVA (left parietal lobe intraparenchymal hemorrhage on 06/16/16), hypertension ( newly diagnosed, with hypertenisve emergency) Additional medical history: glaucoma/elevated ocular pressure. BPH - Surgical History Additional surgical history: B inguinal hernia repair. TURP. surgery in left eye - Family History Positive for: non-pertinent - Social History Smoking Status: Never smoked Alcohol Use: Rarely Drug Use: None Additional social history: Patient from the [facility], on vacation in [place], accompanied by his , 2 sons who live in [place] Review of Systems ROS: 10pt was reviewed & negative except for what was stated in HPI & below Physical Exam Temp Pulse Resp BP Pulse Ox 36.9 C 87 18 136/87 H 93 07/11/16 15:07 07/11/16 15:07 07/11/16 15:07 07/11/16 15:07 07/11/16 15:07 O2 (L/minute) 0 Constitutional: no apparent distress, appears nourished Eyes: PERRL, anicteric sclera Ears, Nose, Mouth, Throat: moist mucous membranes, hearing normal, ears appear normal Cardiovascular: regular rate and rhythym, no murmur, rub, or gallop, other ( frequent PVCs appreciated), No edema Respiratory: no respiratory distress, no rales or rhonchi, clear to auscultation Gastrointestinal: normoactive bowel sounds, soft, non-tender abdomen Genitourinary: no bladder tenderness Skin: warm, normal color Musculoskeletal: no muscle tenderness, No asymmetric calves Neurologic: AAOx3, weakness (rue/rle weakness), numbness (right upper/right lower extremity), CN II-XII Intact Psychiatric: interacting appropriately, not anxious, not encephalopathic Lab Data & Imaging Review 07/11/16 12:25 07/11/16 12:25 WBC 11.83 10^3/uL (3.80-9.50) H 07/11/16 12:25 RBC 5.04 10^6/uL (4.40-6.38) 07/11/16 12:25 Hgb 15.2 g/dL (13.7-17.5) 07/11/16 12:25 Hct 45.9 % (40.0-51.0) 07/11/16 12:25 MCV 91.1 fL (81.5-99.8) 07/11/16 12:25 MCH 30.2 pg (27.9-34.1) 07/11/16 12:25 MCHC 33.1 g/dL (32.4-36.7) 07/11/16 12:25 RDW 12.5 % (11.5-15.2) 07/11/16 12:25 Plt Count 233 10^3/uL (150-400) 07/11/16 12:25 MPV 10.7 fL (8.7-11.7) 07/11/16 12:25 Neut % (Auto) 74.5 % (39.3-74.2) H 07/11/16 12:25 Lymph % (Auto) 14.5 % (15.0-45.0) L 07/11/16 12:25 [place] % (Auto) 9.4 % (4.5-13.0) 07/11/16 12:25 Eos % (Auto) 0.8 % (0.6-7.6) 07/11/16 12:25 Baso % (Auto) 0.4 % (0.3-1.7) 07/11/16 12:25 Nucleat RBC Rel Count 0.0 % (0.0-0.2) 07/11/16 12:25 Absolute Neuts (auto) 8.81 10^3/uL (1.70-6.50) H 07/11/16 12:25 Absolute Lymphs (auto) 1.71 10^3/uL (1.00-3.00) 07/11/16 12:25 Absolute Monos (auto) 1.11 10^3/uL (0.30-0.80) H 07/11/16 12:25 Absolute Eos (auto) 0.10 10^3/uL (0.03-0.40) 07/11/16 12:25 Absolute Basos (auto) 0.05 10^3/uL (0.02-0.10) 07/11/16 12:25 Absolute Nucleated RBC 0.00 10^3/uL (0-0.01) 07/11/16 12:25 Immature Gran % 0.4 % (0.0-1.1) 07/11/16 12:25 Immature Gran # 0.05 10^3/uL (0.00-0.10) 07/11/16 12:25 PT 13.9 SEC (12.0-15.0) 07/11/16 12:25 INR 1.08 (0.83-1.16) 07/11/16 12:25 APTT 27.0 SEC (23.0-38.0) 07/11/16 12:25 Sodium 140 mEq/L (134-144) 07/11/16 12:25 Potassium 4.2 mEq/L (3.5-5.2) 07/11/16 12:25 Chloride 102 mEq/L (97-110) 07/11/16 12:25 Carbon Dioxide 28 mEq/l (22-31) 07/11/16 12:25 Anion Gap 10 mEq/L (8-16) 07/11/16 12:25 BUN 20 mg/dL (7-23) 07/11/16 12:25 Creatinine 0.8 mg/dL (0.7-1.3) 07/11/16 12:25 Estimated GFR > 60 07/11/16 12:25 Glucose 95 mg/dL (70-100) 07/11/16 12:25 Calcium 9.8 mg/dL (8.5-10.4) 07/11/16 12:25 Magnesium 2.0 mg/dL (1.6-2.3) 07/11/16 12:25 Troponin I < 0.012 ng/mL (0-0.034) 07/11/16 12:25 NT-Pro-B Natriuret Pep 414 pg/mL (0-125) H 07/11/16 12:25 TSH 1.310 uIU/mL (0.465-4.680) 07/11/16 12:25 Visualized and Interpreted Chest x-ray results: Yes Chest X-Ray results: normal (bone lesion on left scapula--patient aware, not noted on CT scan of chest in May) Visualized and Interpreted EKG results: Yes EKG Interpretation: Positive for: normal sinsus rhythm EKG additional interpertation: multiple pvcs, rate of 78 Assessment & Plan Assessment: 66 yo M with recent left sided ICH in the setting of uncontrolled HTN presenting from IP rehab with tachycardia prior to admission # paroxysmal tachycardia: no longer occurring and no ecg's available from the event last night. W/u here thus far unrevealing, with normal SR and HR's in the 70-80s. Laboratory evaluation unremarkable including trop/cbc/bmp. Plan is to monitor overnight on telemetry, obtain serial trops and ecgs. Patient had echo during last admit on 06/16 which had no e/o sig valvular disease, preserved EF, mild pulm htn with rvsp of 43. If w/u here remains unremarkable will attempt to have holter placed for return to rehab in am. # HTN: with recent ICH in the setting of hypertensive emergency. Has been on amlodipine 10 and lisinopril 40 at rehab, previously was also on labetalol. Was titrated off of labetalol and has been off of it altogether for almost 10 days with decent BP control. Continue to monitor on current medications # ICH: personally reviewed head CT from prior admit, large left parietal intraparenchymal hemorrhage with associated midline shift, has residual right sided hemiparesis in setting of hypertensive emergency. # glaucoma: continue eye drops # dispo: observation status, so long as no recurrence of arrhythmia or nothing else concerning found will try to dc back to rehab in the am, he is very eager to continue working on therapy patient new to my care. Old records reviewed and summarized as above. Care plan reviewed with ER doctor including plans for observation overnight.
[2016-07-11] MEDS ORDERED: traZODone 50 MG TAB PO PRN (18:13)
[2016-07-11] MEDS ORDERED: LABETALOL HCL 100 MG TAB PO SCH (21:00)
[2016-07-11] MEDS: DORZOLAMIDE 2% OPTH DROPS LEFTEYE SCH (21:04)
[2016-07-11] MEDS: SENNOSIDES/DOCUSATE SODIUM TAB PO SCH (21:04)
[2016-07-11 22:27] LABS: COLOR YELLOW; LEUKOCYTE ESTERASE,URINE NEGATIVE (NEGATIVE); NITRITE,URINE NEGATIVE (NEGATIVE)
[2016-07-12 04:21] VITALS: O2SAT 95
[2016-07-12 07:55] VITALS: BP 123/81; PULSE 78; RESP 22; TEMP 98.1
[2016-07-12] MEDS ORDERED: MULTIVITAMINS 1 EACH TAB PO SCH (09:00)
[2016-07-12] MEDS ORDERED: amLODIPine BESYLATE 5 MG TAB PO SCH (09:00)
[2016-07-12] MEDS ORDERED: LISINOPRIL 40 MG TAB PO SCH (09:00)
--- NOTE | 2016-07-12 09:11 | CPEKG ---
Heart Rate: 92 RR Interval: 652 P-R Interval: 124 QRSD Interval: 96 QT Interval: 356 QTC Interval: 441 P [place]: 76 QRS [place]: 68 T Wave [place]: 26 EKG Severity - NORMAL ECG - EKG Impression: SINUS RHYTHM EKG Impression: RIGHT ATRIAL ENLARGEMENT Electronically Signed By: Steve Kim 12-Jul-2016 18:14:20
[2016-07-12] MEDS: DORZOLAMIDE 2% OPTH DROPS LEFTEYE SCH (09:12)
[2016-07-12] MEDS: SENNOSIDES/DOCUSATE SODIUM TAB PO SCH (09:16)
--- NOTE | 2016-07-12 11:25 | GDS ---
[f rep st] DISCHARGE SUMMARY KNOWN ACUTE DIAGNOSES ON THIS ADMISSION: 1. Acute tachycardia, nonspecific, probably paroxysmal tachycardia without ECG findings or chest pain. 2. Hypertension, currently under good control. 3. Intracranial hemorrhage, showing a 30% resolution of the left parietal intraparenchymal hemorrhage. 4. Glaucoma. CONSULTATIONS: None. PROCEDURES: None. HOSPITAL COURSE: This is a 66-year-old male, who was in inpatient rehab and was noted to have intermittent tachycardia. Upon evaluation, he was noted to be in normal sinus rhythm with a heart rate in the 80s to 90s, without significant tachycardia, with well-controlled blood pressure. He had no decrement in his neurologic deficit. Review of CT scan showed that he had approximately 30% resolution of his left parenchymal hemorrhage. Of note, his first blood pressure was mildly elevated at 158/96, but then resolved to normal pressures of 123/81. He had no chest pain. Neurologic function remained stable. Therefore, he will be returned back to [place] per his own desires. Patient was given a 48 monitor through [facility] DISCHARGE MEDICATIONS: These are the same as his admission medications and are as follows: Dorzolamide eye drops 2% one in the left eye b.i.d., multivitamins daily, herbal supplementation, Tylenol, amlodipine 10 mg p.o. daily, Bisacodyl 5 mg p.o. p.r.n., labetalol 300 mg b.i.d., lisinopril 40 mg daily, MOM p.r.n., MiraLAX 17 g p.r.n., Senokot S 1-2 tabs p.o. b.i.d., [place] nasal spray. PLAN: The patient will be returned to [facility]. Followup will be through [facility] and arranged in that way. His ultimate followup will be in [place], [place] at his home. Followup with [facility] regarding the Holter Monitor /[id number]/MODL MTDD
--- NOTE | 2016-07-12 12:13 | PDIAF ---
- Diagnosis Code Status: Full Code - Medication Management Discharge Medications: Medications to Continue on Transfer Dorzolamide 2% [Trusopt 2% (*)] 1 drops LEFTEYE BID 06/16/16 [Last Taken 10:00] Herbals/Supplements -Info Only 1 ea PO DAILY18 06/16/16 [Last Taken Unknown] Multivitamins [Multivitamin (*)] 1 each PO DAILY 06/16/16 [Last Taken 07/11/16 10:00] Acetaminophen [Tylenol 325mg (*)] 650 mg PO Q4 PRN #0 tab 06/23/16 [Last Taken 07/10/16 18:52] Bisacodyl [Bisacodyl (*)] 5 mg PO PRN PRN #0 tab 06/23/16 [Last Taken 06/21/16 09:39] Labetalol HCl [Trandate 100 mg (*)] 300 mg PO BID tab 06/23/16 [Last Taken 05/14 08:29] Lisinopril [Zestril 40 mg (*)] 40 mg PO DAILY tab 06/23/16 [Last Taken 10:00] Magnesium Hydroxide [Milk of Magnesia] 30 ml PO DAILY PRN #30 oral.susp [Last Taken Unknown] Polyethylene Glycol 3350 [Miralax 17 gm (*)] 17 gm PO DAILY PRN #0 pkt 06/23/16 [Last Taken 07/04/16 08:49] Sennosides/Docusate Sodium [Senokot-S] 1 - 2 tab PO BID tab 06/23/16 [Last Taken 06/21/16 09:50 2 tabs] Sodium Cl Nasal [[place] (*)] 1 spray EACHNARE PRN PRN #0 btl 06/23/16 [ Last Taken 06/20/16 06:00] amLODIPine BESYLATE [Norvasc 5 mg (*)] 10 mg PO DAILY tab 06/23/16 [Last Taken 07/11/16 10:00] Discharge Medications: Refer to the Discharge Home Medication list for PRN reason. - Orders Services needed: Registered Nurse, Certified Embroidery Finisher, Physical Therapy, Occupational Therapy Diet Recommendation: no restrictions on diet Diet Texture: Regular Texture Diet Equipment: Holter monitor has been placed. [facility] - Follow Up Care Current Providers and Referrals: Patient,NotPresent [Unknown] - As per Instructions Chriss Heath MD [Medical Doctor] - 3-5 days
== END 2016-07-12 11:44 ==
LOC: EDUNIT# → F3E 15:01
PROVIDERS: ADMIT Hospitalist; ATTEND Hospitalist
DX: R00.0 Tachycardia, unspecified (principal); I10 Essential (primary) hypertension; I69.151 Hemiplegia and hemiparesis following nontraumatic intracerebral hemorrhage affecting right dominant side; Z86.73 Personal history of transient ischemic attack (TIA), and cerebral infarction without residual deficits; H40.9 Unspecified glaucoma
CPT/HCPCS: 71010; 93005; G0378

== ENCOUNTER 2016-07-12 13:33 | Inpatient (IN) | payer OTHER, BC ==
--- NOTE | 2016-07-12 15:31 | SOAPPROG ---
SOAP Progress Note Assessment/Plan: Assessment: 66 yo M s/p L parietal ICH on 06/16/16 with RUE & RLE weakness, expressive aphasia (much improved), returns to Inpatient Rehabilitation after <24 hr Observation stay at [facility] for tachycardia: * Left parietal intraparenchymal hemorrhage on 06/16/16 with right upper and lower extremity weakness, sensory loss, and right hemineglect. Improving on head CT 07/08/16 but hemorrhage and mass effect on ventricle and L shift (down from 4 mm to 1 mm) still present. Initial FIM 54 on 07/02/16; improved to 65 on . Variable ADLs, SBA to Min A bed mobility, SBA to mod A for transfers. Still in pre-gait activities UB dressing set-up and supervision; LB min A for standing balance. Hemineglect without R visual field cut noted by OT. Continue physical and occupational therapies to optimize mobility and activities of daily living. * Cognitive impairment, with deficits to math, reading, word-retrieval, working memory, following multi-step commands. Gets frustrated re deficits and has poor repair skills. 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 * Hypertension, status post hypertensive emergency. On lisinopril 40 mg q. day , amlodipine 10 mg q. day. Labetalol has been discontinued. Continue to monitor. * Tachycardia. Evaluation was unrevealing. Await result of 48 hr monitor. * Insomnia. Continue trazodone 25 mg QHS. * Depression? Continue to monitor. Not interested in medications at present. Counseling per SSAS DEVELOPER. * Constipation has responded to laxatives. He will be monitored and the bowel program will be adjusted as needed. * Glaucoma in the left eye. Dorzolamide will be continued. * Anemia. Improving on CBC 06/24/16; resolved on CBC 07/11/16. * Superficial thrombophlebitis and deep venous thrombosis prophylaxis. Pharmacologic prophylaxis is contraindicated in the setting of a recent intraparenchymal hemorrhage. He will have CELE hose and at night he will have sequential compression devices on his legs. * Systemic inflammatory response syndrome has been improving. Infectious and metabolic etiologies were ruled out. Not tachycardic or febrile and WBCs improving on CBC 06/24/16. Leukocytosis resolved 07/01/16. BMP c/w slight dehydration 4/6/17, o/w wnl. Lives in split-level home in [place]; can live on lower level but has a few stairs to enter the home. Goal to be able ot function at home rather than transfer to SNF or rehabilitation facility in [place]. Will need extension of Medicare stay beyond 18 days. Plan for discharge 07/23/16. 07/12/16 15:27 Subjective: Returned from [facility] Obs stay <24 hr for tachycardia, Dx'd SVT, now with 48 hr heart monitor. No complaints, glad to be back on the rehabilitation unit. Objective: Vital Signs Temp Pulse Resp BP Pulse Ox 36.6 C 87 16 131/75 H 97 07/12/16 14:12 07/12/16 14:12 07/12/16 14:12 07/12/16 14:12 07/12/16 14:12 Physical Exam - Physical Exam General Appearance: WD/WN, alert, no apparent distress Respiratory: normal breath sounds, No crackles, No rhonchi, No wheezing Cardiac/Chest: regular rate, rhythm, No edema, No JVD, No bradycardia, No tachycardia, No diastolic murmur, No systolic murmur Skin: normal color, warm/dry Neuro/Psych: alert, normal mood/affect, oriented x 3, motor weakness (RUE flaccid paralysis) ICD10 Worksheet Patient Problems: Problems Problem Status Onset Cerebral hemorrhage Acute Palpitations Acute Paroxysmal tachycardia Acute
[2016-07-12] MEDS ORDERED: POLYETHYLENE GLYCOL 3350 17 GM PKT PO PRN (16:13)
[2016-07-12] MEDS ORDERED: MAGNESIUM HYDROXIDE 30 ML UDCUP PO PRN (16:13)
[2016-07-12] MEDS ORDERED: SODIUM CL NASAL 45 ML BTL EACHNARE PRN (16:13)
[2016-07-12] MEDS ORDERED: ACETAMINOPHEN 325 MG TAB PO PRN (16:13)
[2016-07-12] MEDS ORDERED: Herbals/Supplements -Info Only PO SCH (18:00)
[2016-07-12] MEDS ORDERED: traZODone 50 MG TAB PO PRN (20:45)
[2016-07-12] MEDS: DORZOLAMIDE 2% OPTH DROPS LEFTEYE SCH (21:00)
[2016-07-13 07:16] VITALS: RESP 16
[2016-07-13] MEDS: DORZOLAMIDE 2% OPTH DROPS LEFTEYE SCH (08:57)
[2016-07-13] MEDS ORDERED: amLODIPine BESYLATE 5 MG TAB PO SCH (09:00)
[2016-07-13] MEDS ORDERED: LISINOPRIL 40 MG TAB PO SCH (09:00)
[2016-07-13] MEDS ORDERED: MULTIVITAMINS 1 EACH TAB PO SCH (09:00)
[2016-07-13 13:37] VITALS: BP 102/65; PULSE 125; O2SAT 91
--- NOTE | 2016-07-13 13:39 | SOAPPROG ---
SOAP Progress Note Assessment/Plan: Assessment: 66 yo M s/p L parietal ICH on 06/16/16 with RUE & RLE weakness, expressive aphasia (much improved), returns to Inpatient Rehabilitation after <24 hr Observation stay at [facility] for tachycardia: Recurrent tachycardia [phone] with activity and hypoxia with R hemiparesis and no anticoagulation due to hemorrhagic CVA: get chest CT angiogram to R/O PE. * Left parietal intraparenchymal hemorrhage on 06/16/16 with right upper and lower extremity weakness, sensory loss, and right hemineglect. Improving on head CT 07/08/16 but hemorrhage and mass effect on ventricle and L shift (down from 4 mm to 1 mm) still present. Initial FIM 54 on 07/02/16; improved to 65 on . Variable ADLs, SBA to Min A bed mobility, SBA to mod A for transfers. Still in pre-gait activities UB dressing set-up and supervision; LB min A for standing balance. Hemineglect without R visual field cut noted by OT. Continue physical and occupational therapies to optimize mobility and activities of daily living. AFO ordered today 07/13/16. * Cognitive impairment, with deficits to math, reading, word-retrieval, working memory, following multi-step commands. Gets frustrated re deficits and has poor repair skills. Continue NURSING SPECIALIST. * Hypertension, status post hypertensive emergency. On lisinopril 40 mg q. day , amlodipine 10 mg q. day. Labetalol has been discontinued. Continue to monitor. * Tachycardia. Evaluation was unrevealing. Await result of 48 hr monitor. * Insomnia. Continue trazodone 25 mg QHS. * Depression? Continue to monitor. Not interested in medications at present. 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 * Constipation has responded to laxatives. He will be monitored and the bowel program will be adjusted as needed. * Glaucoma in the left eye. Dorzolamide will be continued. * Anemia. Improving on CBC 06/24/16; resolved on CBC 07/11/16. * Superficial thrombophlebitis and deep venous thrombosis prophylaxis. Pharmacologic prophylaxis is contraindicated in the setting of a recent intraparenchymal hemorrhage. He will have CELE hose and at night he will have sequential compression devices on his legs. * Systemic inflammatory response syndrome has been improving. Infectious and metabolic etiologies were ruled out. Not tachycardic or febrile and WBCs improving on CBC 06/24/16. Leukocytosis resolved 07/01/16. BMP c/w slight dehydration 07/01/16, o/w wnl. Lives in split-level home in [place]; can live on lower level but has a few stairs to enter the home. Goal to be able ot function at home rather than transfer to SNF or rehabilitation facility in [place]. Will need extension of Medicare stay beyond 18 days. Plan for discharge 07/23/16. 07/13/16 13:34 Subjective: Had event in PT of fast heart rate to 140s and low O2 sat to 86%. Improved with rest to HR 122. C/O dyspnea. No CP, no calf tenderness. Objective: Vital Signs Temp Pulse Resp BP Pulse Ox 36.8 C 71 16 126/63 H 95 07/13/16 07:15 07/13/16 07:15 07/13/16 07:15 07/13/16 08:54 07/13/16 07:15 07/12/16 07/13/16 07/14/16 05:59 05:59 05:59 Intake Total 600 900 Output Total 750 225 Balance -150 675 Physical Exam - Physical Exam General Appearance: WD/WN, alert, no apparent distress Respiratory: No respiratory distress, No accessory muscle use, No crackles, No rhonchi, No wheezing Cardiac/Chest: regular rate, rhythm, tachycardia, No diastolic murmur, No systolic murmur Skin: normal color, warm/dry Extremities: other (No calf tenderness), No pedal edema Neuro/Psych: alert, normal mood/affect, oriented x 3, motor weakness (RUE flaccid paralysis. Transferred independently from wheelchair to bed.) ICD10 Worksheet Patient Problems: Problems Problem Status Onset Cerebral hemorrhage Acute Palpitations Acute Paroxysmal tachycardia Acute
[2016-07-13] MEDS ORDERED: IOPAMIDOL (ISOVUE 370) 100 ML BTL IV ONE (14:12)
[2016-07-13 15:25] VITALS: TEMP 97.5
--- NOTE | 2016-07-14 09:01 | PDOREHIP ---
Admission IRF-[facility] - Admission - 3 Day Assessment Period Admission Date/Day 1: 07/12/16 Day 2: 07/13/16 Day 3: 07/14/16 - Active Diagnoses Comorbidities and Co-existing Conditions at Admission: 97021. None of the Above - Skin Conditions Unhealed Pressure Ulcer (1 or more/Stage 1 or >)-Admission: 0. No
== END 2016-07-13 14:30 | disposition short-term general hospital (02) | DRG 57 ==
LOC: BREH 13:33
PROVIDERS: ADMIT Internal Medicine; ATTEND Internal Medicine
DX: I69.151 Hemiplegia and hemiparesis following nontraumatic intracerebral hemorrhage affecting right dominant side (principal); I69.120 Aphasia following nontraumatic intracerebral hemorrhage; I69.198 Other sequelae of nontraumatic intracerebral hemorrhage; R44.8 Other symptoms and signs involving general sensations and perceptions; I10 Essential (primary) hypertension; H40.9 Unspecified glaucoma; G47.00 Insomnia, unspecified; K59.00 Constipation, unspecified
CPT/HCPCS: 92507-GN; 92522-GN; 97112-GO; 97164-GP; 97168-GO; 97535-GO; Q9967

== ENCOUNTER → 2016-07-12 | Outpatient (CLI) | payer OTHER, BC | LOC: BHFA 11:30 | PROVIDERS: ATTEND Internal Medicine Cardiovascular Disease | DX: R00.0 Tachycardia, unspecified (principal); I63.9 Cerebral infarction, unspecified ==

== ENCOUNTER 2016-07-13 15:17 | Inpatient (IN) | payer OTHER, BC ==
--- NOTE | 2016-07-13 15:24 | CPEKG ---
Heart Rate: 111 RR Interval: 541 P-R Interval: 144 QRSD Interval: 94 QT Interval: 332 QTC Interval: 451 P Jennings: 69 QRS Jennings: 44 T Wave Jennings: 25 EKG Severity - ABNORMAL ECG - EKG Impression: SINUS TACHYCARDIA EKG Impression: LEFT ATRIAL ABNORMALITY Electronically Signed By: Yolanda Mccall 13-Jul-2016 17:40:56
[2016-07-13] MEDS ORDERED: HEPARIN/DEXTROSE 500 ML IV ONE (15:44)
[2016-07-13 15:47] LABS: % IMMATURE GRANULYOCYTES 0.6 % (0.0-1.1); ABSOLUTE IMMATURE GRANULOCYTES 0.08 10^3/uL (0.00-0.10); ADD DIFF? NO; ADD MORPH? NO; ADD SCAN? NO; ATYPICAL LYMPHOCYTE FLAG 0 (0-99); FRAGMENT RBC FLAG 0 (0-99); HEMATOCRIT 39.2 % (40.0-51.0); HEMOGLOBIN 13.4 g/dL (13.7-17.5); LEFT SHIFT FLG 40 (0-99); LIPEMIA HEMOLYSIS FLAG 90 (0-99); MEAN CELL HEMOGLOBIN 29.9 pg (27.9-34.1); MEAN CELL HEMOGLOBIN CONCENTR. 34.2 g/dL (32.4-36.7); MEAN CELL VOLUME 87.5 fL (81.5-99.8); MEAN PLATELET VOLUME 10.6 fL (8.7-11.7); PLATELET CLUMPS FLAG 20 (0-99); PLATELET COUNT 151 10^3/uL (150-400); RED BLOOD CELL COUNT 4.48 10^6/uL (4.40-6.38); RED CELL DISTRIBUTION WIDTH 12.1 % (11.5-15.2)
[2016-07-13 15:53] LABS: INR 1.22 (0.83-1.16); PROTIME(PATIENT) 15.4 SEC (12.0-15.0)
[2016-07-13 15:54] LABS: APTT 30.4 SEC (23.0-38.0)
--- NOTE | 2016-07-13 16:04 | EDPHY ---
H & P Stated Complaint: sent from CT, saddle PE Source: Patient, Family, Old records Exam Limitations: No limitations - Personal History Current Tetanus/Diphtheria Vaccine: Yes Current Tetanus Diphtheria and Acellular Pertussis (TDAP): Yes - Medical/Surgical History Hx Asthma: No Hx Chronic Respiratory Disease: No Hx Diabetes: No Hx Cardiac Disease: No Hx Renal Disease: No Hx Cirrhosis: No Hx Alcoholism: No Hx HIV/AIDS: No Hx Splenectomy or Spleen Trauma: No Other PMH: enlarged prostate. Ocular Pressure. CVA w/ right sided deficits - Social History Smoking Status: Never smoked Time Seen by Provider: 07/13/16 15:30 HPI/ROS: CHIEF COMPLAINT: Shortness of breath HISTORY OF PRESENT ILLNESS: Patient arrives from Radiology Department with reports of abnormal CT scan is revealing saddle pulmonary embolism. His complaint is only shortness of breath during his neuro rehab today. He still has had no chest pain of any kind over the past week. He said that he was very winded while trying to perform his rehab exercises today. Due to this, the physician there at the rehabilitation center ordered a CT scan of the chest. He was brought here for outpatient CT scan which showed the PE. He was then transported to the Emergency Department room 2. He has no other new complaints since previous examination 2 days ago here. Discharged from this facility yesterday. REVIEW OF SYSTEMS: Ten systems reviewed and are negative unless otherwise noted in the HPI PERTINENT MEDICAL HISTORY: Hemorrhagic stroke May 2016 EXAMINATION General Appearance: Alert, no distress Head: normocephalic, atraumatic Eyes: Pupils equal and round, no conjunctival pallor or injection ENT, Mouth: Mucous membranes moist. Uvula midline. Neck: Normal inspection, supple, non-tender Respiratory: Lungs are clear to auscultation. No wheezing, rhonchi or crackles. Cardiovascular: Tachycardic rate. Regular rhythm. Gastrointestinal: Abdomen is soft and nontender Neurological: A&O, nonfocal. Baseline paralysis on the right upper and right lower extremities. Skin: Warm and dry, no rash Extremities: Nontender, no pedal edema. No erythema of the lower extremities. Psychiatric: Mood and affect normal DIFFERENTIAL DIAGNOSES: Including but not limited to pulmonary embolism MDM: 3:30 p.m. Shortness of breath with CT today performed on an outpatient basis that shows a saddle pulmonary embolism. I am familiar with the patient's case as I admitted him to the hospital 2 days ago. He was discharged home yesterday with a Holter monitor in place. Today he has some shortness of breath during his name neuro rehab. CT was ordered, and while here radiologist informed us that there was a large PE. He still has no chest pain of any kind. He does have some dyspnea with exertion. He is hemodynamically stable with mild tachycardia. We immediately consulted hospitalist to assist with the case as it is very complex given his recent hemorrhagic stroke. 3:40 p.m. Case discussed with Dr. Velasco here in the emergency department. He has consult to Neurosurgery to discuss the case. Dr. Velasco recommends proceeding with a heparin drip without bolus. This is not without risk given the patient' s recent hemorrhagic stroke, but necessary given the saddle embolism. We will discuss the risks and benefits with the patient regarding the heparin drip. 4:01 p.m. Contacted by rehab physician Dr. Vanessa. He was contacting us to ensure that we were using heparin and not Lovenox. I informed him that we were in the proceed with heparin drip without bolus and with not use Lovenox. 4:04 p.m. Patient has been evaluated by Dr. Mccall and Dr. Velasco is currently at bedside. 5:00 p.m. Patient is currently undergoing ultrasound of the lower extremities. He has been admitted to the ICU. Heparin drip has been initiated in the emergency department. He is admitted in stable condition with tachycardia but no hypotension or hypoxia on 2 L supplemental oxygen. SUPERVISION: Patient was evaluated in conjunction with the supervising physician. Please see their note for details. (Austin Rogers) Constitutional: Initial Vital Signs Temperature (C) 98.6 F 07/13/16 15:22 Heart Rate 115 H 07/13/16 15:22 Respiratory Rate 18 07/13/16 15:22 Blood Pressure 107/86 H 07/13/16 15:22 O2 Sat (%) 98 07/13/16 15:22 O2 Delivery Mode Room Air O2 (L/minute) 2 Allergies/Adverse Reactions: No Known Allergies Allergy (Unverified 06/16/16 05:58) Home Medications: Medication Instructions Recorded Dorzolamide 2% [Trusopt 2% (*)] 1 drops LEFTEYE BID 06/16/16 Multivitamins [Multivitamin (*)] 1 each PO DAILY 06/16/16 Acetaminophen [Tylenol 325mg (*)] 650 mg PO Q4 PRN #0 tab 06/23/16 Lisinopril [Zestril 40 mg (*)] 40 mg PO DAILY tab 06/23/16 Magnesium Hydroxide [Milk of 30 ml PO DAILY PRN #30 oral.susp 06/23/16 Magnesia] Polyethylene Glycol 3350 [Miralax 17 gm PO DAILY PRN #0 pkt 06/23/16 17 gm (*)] Sodium Cl Nasal [[place] (*)] 1 spray EACHNARE PRN PRN #0 btl 06/23/16 amLODIPine BESYLATE [Norvasc 5 mg 10 mg PO DAILY tab 06/23/16 (*)] traZODone [traZODONE 50MG (*)] 25 mg PO HS 07/13/16 Medical Decision Making Other Provider: The patient was initially seen and evaluated by PA. Please see their dictation for complete details. Additionally I obtained the following history: The patient had was here with intracranial hemorrhage on 06/16/16, likely hypertensive hemorrhage. He was admitted and subsequently went to [facility] rehab on 06/23. The patient was here on 07/11 with tachycardia and spent the night in the observation unit before returning to rehab. Today the patient was unable to tolerate physical therapy today due to shorntess of breath. He had an outpatient CT chest done today that showed a saddle PE. I spoke to the hospitalist, Dr. Velasco as well as the neurosurgeon, Dr. Thorne, who recommends Heparin drip without IV bolus. Patient's blood pressure has been controlled here. On physical examination he is awake and alert. Lungs are clear to auscultation. Heart is regular rate and rhythm without murmur. Abdomen is soft , nontender, nondistended. Neurologically he has a right jamie paresis with normal strength and sensation on the left. I discussed risks of starting the patient on a blood thinner with recent intracranial hemorrhage. The patient understands the risks. I will page the radiologist to discuss possible IR options. 3:55 p.m.: The radiologist agrees with the plan to start the patient on a Heparin drip. She does not recommend other IR options. I reviewed the database, medical/surgical history, and ED course. Plan: Heparin drip followed by admission. The midlevel and I discussed the care, treatment, and disposition of the patient. (Yolanda Mccall) - Data Points Laboratory Results: Laboratory Results 07/13/16 15:20 07/13/16 15:20 Medications Given: Discontinued Medications Heparin Sodium (Porcine) (Heparin Injection) 0 unit IVP PRN PRN; Protocol PRN Reason: Bolus per protocol Stop: 01/09/17 16:29 Last Admin: 07/13/16 23:36 Dose: 1,878 units Heparin Sodium (Porcine) (Heparin 50 Units/Ml (Premix)) 500 mls @ 0 mls/hr IV EDNOW ONE; Per Protocol PRN Reason: Protocol Stop: 07/13/16 15:45 Last Admin: 07/13/16 16:28 Dose: 500 mls Sodium Chloride (Ns) 1,000 mls @ 150 mls/hr IV CONT LANE Stop: 01/09/17 16:14 Last Admin: 07/14/16 11:50 Dose: 1,000 mls Heparin Sodium (Porcine) (Heparin 50 Units/Ml (Premix)) 500 mls @ 0 mls/hr IV CONT LANE; Per Protocol PRN Reason: Protocol Stop: 01/09/17 16:29 Last Admin: 07/14/16 13:40 Dose: 500 mls Departure - Departure Disposition: [facility] Inpatient Acute Clinical Impression: Saddle pulmonary embolus Qualifiers: Chronicity: unspecified Acute cor pulmonale presence: without acute cor pulmonale Qualified Code(s): I26.92 - Saddle embolus of pulmonary artery without acute cor pulmonale Condition: Fair
[2016-07-13] MEDS ORDERED: ONDANSETRON DISINTEGRATING 4 MG TAB PO PRN (16:15)
[2016-07-13] MEDS ORDERED: ONDANSETRON 4 MG/2 ML VIAL IVP PRN (16:15)
[2016-07-13] MEDS ORDERED: HYDROmorphONE/DILAUDID 1 MG/ML SYR IVP PRN (16:15)
[2016-07-13] MEDS ORDERED: ACETAMINOPHEN 325 MG TAB PO PRN (16:15)
[2016-07-13 16:18] LABS: ALANINE AMINOTRANSFERASE 35 IU/L (21-72); ALBUMIN 3.4 g/dL (3.5-5.0); ALKALINE PHOSPHATASE 35 IU/L (38-126); ANION GAP 9 mEq/L (8-16); ASPARTATE AMINOTRANSFERASE 28 IU/L (17-59); BILIRUBIN,TOTAL 1.4 mg/dL (0.1-1.4); BILIRUBIN-CONJUGATED 0.2 mg/dL (0.0-0.5); BILIRUBIN-UNCONJUGATED 1.2 mg/dL (0.0-1.1); CALCIUM 9.2 mg/dL (8.5-10.4); CARBON DIOXIDE 26 mEq/l (22-31); CHLORIDE 103 mEq/L (97-110); CREATININE 0.8 mg/dL (0.7-1.3); GLOMERULAR FILTRATION RATE > 60; GLUCOSE 117 mg/dL (70-100); POTASSIUM 4.1 mEq/L (3.5-5.2); SODIUM 138 mEq/L (134-144); TOTAL PROTEIN 6.5 g/dL (6.3-8.2)
[2016-07-13] MEDS ORDERED: HEPARIN 10,000 UNIT/10 ML MDV IVP PRN (16:30)
[2016-07-13] MEDS ORDERED: HEPARIN/DEXTROSE 500 ML IV SCH (16:30)
[2016-07-13 16:31] LABS: TROPONIN I 0.053 ng/mL (0-0.034)
[2016-07-13] MEDS ORDERED: MAGNESIUM HYDROXIDE 30 ML UDCUP PO PRN (17:03)
[2016-07-13] MEDS ORDERED: SODIUM CL NASAL 45 ML BTL EACHNARE PRN (17:03)
[2016-07-13] MEDS ORDERED: POLYETHYLENE GLYCOL 3350 17 GM PKT PO PRN (17:03)
--- NOTE | 2016-07-13 17:30 | ECHO ---
[id number] + + [address] : : [place] [address] : : [phone] + Adult Echocardiographic Report + -------+ :Name: Toño ANGUIANOryann Date: 07/13/2016 04:13 PM : : Hospital Admission Number: [id number] Locat ion: ER: :: 1950 Gender: Male Height: 69 in : :Age: 66 yrs Race: WH Weight: 138 l b : :Reason For Study: Saddle PE : : BSA: 1.8 mete rs2 : + -------+ MMode/2D Measurements \T\ Calculations IVSd: 0.73 cm LVIDd: 3.8 cm FS: 38.0 % Ao root diam: 3.7 cm LVPWd: 0.81 cm LVIDs: 2.3 cm EDV(Teich): 61.6 ml LA dimension: 2.6 cm ESV(Teich): 19.1 ml EF(Teich): 68.9 % Normal Measurement Values: + + :LVIDd (3.5-5.7cm) IVSd (0.6-1.1cm) LVPWd (0.6-1.1cm) Aortic Root (2.0-3.7cm)Left Atrium (1.5-4.0cm): :LV Vol(d) (76-115ml) LV Vol(s) (29-48ml) Ejec Fraction (50-65%)PV Joe (0.6- 1.2m/s) TV Joe (0.4-1.0m/s) : :MV E Joe (0.8-1.0m/s)MV A Joe (0.3-1.0m/s)LVOT Joe (0.7-1.2m/s) Asc Ao Joe ( 0.9-1.8m/s) : + + Doppler Measurements \T\ Calculations MV E max joe: 39.0 cm/sec Ao V2 max: 130.0 cm/sec TR max joe: 329.0 cm/sec MV A max joe: 71.1 cm/sec Ao max P.8 mmHg TR max P.3 mmHg MV E/A: 0.55 RAP systole: 10.0 mmHg RVSP(TR): 53.3 mmHg Left Ventricle The left ventricle is normal in size. There is mild concentric left ventricular hypertrophy. The left ventricle is hyperdynamic. Ejection Fraction = 70--75%. No regional wall motion abnormalities noted. Right Ventricle The right ventricle is normal in size and function. Calcified chordae. Atria The left atrial size is normal. The right atrium is mildly dilated. A prominent eustachian valve is noted. The interatrial septum is intact with no evidence for an atrial septal defect. Mitral Valve The mitral valve is normal in structure and function. There is no evidence of mitral valve prolapse. There is no mitral valve stenosis. Tricuspid Valve Normal tricuspid valve. There is moderate tricuspid regurgitation. Right ventricular systolic pressure is 53mmHg. There is Doppler evidence for mild pulmonary hypertension. Aortic Valve The aortic valve opens well. There is no aortic stenosis. Trace aortic regurgitation. Pulmonic Valve The pulmonic valve is not well visualized. There is no pulmonic valvular regurgitation. Great Vessels The aortic root is normal size. Pericardium/Pleural Trivial anterior pericardial effusion. Conclusion A complete two-dimensional transthoracic echocardiogram was performed (2D, M-mode, Doppler and color flow Doppler). Compared to the echo of 06/16/16, the amount of TR has significantly increased. The left ventricle is hyperdynamic. Ejection Fraction = 70--75%. There is mild concentric left ventricular hypertrophy. The right atrium is mildly dilated. Right ventricular systolic pressure is 53mmHg. Calcified tricuspid chordae. In one view there appears to be a ruptured chordae. There is moderate tricuspid regurgitation. Trace aortic regurgitation. Trivial anterior pericardial effusion Final Reading Physician: Cal Chaves signed on 07/13/2016 05:29 PM Ordering Physician: Christopher Velasco Performed By: Claudette Lai RDCS
[2016-07-13] MEDS ORDERED: fentaNYL 100 MCG/2 ML INJ ONE (17:32)
--- NOTE | 2016-07-13 17:35 | GHP ---
[f rep st] HISTORY AND PHYSICAL DATE OF ADMISSION: 07/13/2016 HISTORY OF PRESENT ILLNESS: The patient is a pleasant 66-year-old gentleman from [facility], who was admitted to this hospital on June 16, 2016 with acute onset right hemiparesis, and he was found to have a left parietal intraparenchymal hemorrhage, 7 x 5 x 5 cm. He was discharged t o inpatient rehab where he was doing well until 2 days ago when, on July 11, 2016, he was admitted with tachycardia. He did not have chest pain. He was followed on telemetry where it was confirmed it was sinus. He did not have, at that time, an oxygen requirement. He was discharged home when hi s heart rate was no longer fast. He returns today with significant dyspnea on exertion and tachycar amy, as well as an oxygen requirement. He was actually sent over to outpatient radiology for CTA of the chest, which demonstrated a saddle pulmonary embolus with pulmonary emboli in the segmental and subsegmental vessels bilaterally, with interventricular septal straining. When I speak to the patient, he is dyspneic, but he is able to speak in complete sentences. He is l sanam flat. He is not hypotensive nor is he confused. He does not have a cough. He does acknowledg e dyspnea. He has no previous history of VTE. I discussed the case at length with Dr. Alcides Thorne from Neurosurgery regarding the risks and benefits of anticoagulation, and at this point in time, he felt that the risk of not anticoagulatin g this saddle pulmonary embolism was greater than the risk of leaving it than the risk of intracrani al bleeding. He did make some specific recommendation I will discuss in the plan. REVIEW OF SYSTEMS: Complete 10-point review of systems conducted and negative, except as noted in t he HPI. PAST MEDICAL HISTORY: 1. Hypertension diagnosed in May of this year. 2. Intraparenchymal hemorrhage. 3. Hypertensive emergency. 4. Glaucoma with elevated intraocular pressure. 5. BPH. ALLERGIES: No known drug allergies. HOME MEDICATIONS: Are Tylenol, amlodipine, bisacodyl, dorzolamide, labetalol, lisinopril, mag hydro xide, multivitamin, MiraLAX, senna, docusate, [place] nasal spray. 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 He is originally from [facility]. He is a nonsmoker, nondrinker. FAMILY HISTORY: Negative for VTE. PHYSICAL EXAMINATION: VITAL SIGNS: On presentation, blood pressure 102/65, now 107/86, pulse 125, breathing 18 times a minute, he is 98% on room air, 97 on 2 L. GENERAL: No acute distress, lying f lat. SCLERAE: Anicteric. OROPHARYNX: Clear. MUCOUS MEMBRANES: Are moist. NECK: Supple. He h as elevated JVD, but he is lying flat. HEART: Is tachycardic, S1 and S2, with a fixed split S2. A BDOMEN: Soft, nontender, nondistended. LOWER EXTREMITIES: Without edema. Calves are nontender. SKIN: Without rash. NEUROLOGIC: He does have right-sided hemiparesis, though this is not investig ated in detail. LABS: White count 12.76, hematocrit 39.2, platelets are 151,000. INR is 1.22. Sodium 138, potassi um 4.1, chloride 102, bicarb 26, BUN 23, creatinine 0.8, glucose 117. Bilirubin slightly elevated. Troponin and BNP are pending. IMAGING: CTA of the chest shows saddle pulmonary embolism with right lower lobe infiltrate. The im ages are reviewed/interpreted by me. His EKG shows sinus tach at 111, with normal axis and interval s. There is suggestion of a right bundle branch block, but I think it is actually a pseudo pattern. It is unchanged from a prior EKG, other than the rate, from a few days earlier. I have discussed the case Dr. Alcides Thorne, Dr. Darvin Shirley and Dr. John Vanessa, as well as Dr. Yolanda Mccall. ASSESSMENT AND PLAN: A 66-year-old gentleman with saddle pulmonary embolism and recent intracranial hemorrhage. 1. Saddle pulmonary embolism. The patient is currently hemodynamically stable. He is absolutely, positively not a candidate for lytics nor should mechanical thrombolysis be pursued at this time. W ill start him on a heparin drip without bolus, as discussed with Dr. Thorne, and we will perf orm good blood pressure control. Echocardiogram has been ordered to evaluate right heart function. Stat lower extremity ultrasound has been ordered to evaluate for the possibility of residual clot i n his lower extremities, in which case an IVC filter would be indicated. 2. Parenchymal hemorrhage. We will continue blood pressure medicines and follow. We have good blo od pressure control. 3. Sinus tachycardia attributable to large pulmonary embolism. 4. Constipation. Will continue his medicines and they have been reconciled. DISPOSITION: Inpatient status, high risk, critically ill. CODE STATUS: Full. /[id number]/MODL
[2016-07-13] MEDS ORDERED: IOPAMIDOL (ISOVUE-300) 100 ML BTL IV ONE (18:04)
[2016-07-13] MEDS: NS 1,000 ML IV SCH (19:35)
[2016-07-13] MEDS: DORZOLAMIDE 2% OPTH DROPS LEFTEYE SCH (20:56)
[2016-07-13] MEDS: traZODone 50 MG TAB PO SCH (20:57)
[2016-07-14 05:33] LABS: % IMMATURE GRANULYOCYTES 0.4 % (0.0-1.1); ABSOLUTE IMMATURE GRANULOCYTES 0.04 10^3/uL (0.00-0.10); ADD DIFF? NO; ADD MORPH? NO; ADD SCAN? NO; ATYPICAL LYMPHOCYTE FLAG 0 (0-99); FRAGMENT RBC FLAG 0 (0-99); HEMATOCRIT 37.7 % (40.0-51.0); HEMOGLOBIN 12.8 g/dL (13.7-17.5); LEFT SHIFT FLG 60 (0-99); LIPEMIA HEMOLYSIS FLAG 90 (0-99); MEAN CELL HEMOGLOBIN 29.7 pg (27.9-34.1); MEAN CELL VOLUME 87.5 fL (81.5-99.8); MEAN PLATELET VOLUME 10.9 fL (8.7-11.7); PLATELET CLUMPS FLAG 20 (0-99); PLATELET COUNT 128 10^3/uL (150-400); RED BLOOD CELL COUNT 4.31 10^6/uL (4.40-6.38)
[2016-07-14 06:09] LABS: TROPONIN I 0.586 ng/mL (0-0.034)
[2016-07-14] MEDS: DORZOLAMIDE 2% OPTH DROPS LEFTEYE SCH ×2 (09:07→20:37)
[2016-07-14] MEDS: MULTIVITAMINS 1 EACH TAB PO SCH (09:08)
[2016-07-14] MEDS: NS 1,000 ML IV SCH (11:50)
[2016-07-14] MEDS: LISINOPRIL 40 MG TAB PO SCH (14:28)
--- NOTE | 2016-07-14 15:18 | GCON ---
[f rep st] CONSULTATION PULMONARY CONSULTATION. DATE OF CONSULTATION: 07/14/2016 HPI: The patient is a 66-year-old male who was visiting from out of town in late May with a histo ry of hypertension and had acute onset of right hemiparesis. He had an intraparenchymal hemorrhage measuring about 7 x 5 cm where he was followed by Neurosurgery consults and Neurology. He did fairly well during his hospital stay, did not require any surgical intervention and was event ually discharged to rehab. On July 11, 2016 he had tachycardia, was returned back to acute care, b ut no etiology was elucidated. He went back to rehab, and then started having this ongoing issues o f tachycardia that was otherwise unexplained. His rehab doctor sent him for a CT angiogram of his c hest which revealed a large saddle embolism bilaterally. Subsequently, he was brought back to the acute care hospital where Neurosurgery was again consulted at least by phone concerning anticoagulation. Dr. Velasco admitted the patient. He was started on u nfractionated heparin drip. At the time of my visit was doing quite well. He has no history of venous thromboembolic disease and no family history of these disorders. He did have sequential compression device stockings in place during his acute care hospital stay, but tereso alberts was not anticoagulated in a pharmacologic way due to the intracranial hemorrhaging. PAST MEDICAL HISTORY: 1. Hypertension as described above. 2. Intracerebral hemorrhage. 3. Hypertensive emergency. 4. Glaucoma with elevated intraocular pressure. 5. Benign prostatic hypertrophy. ALLERGIES: None. SOCIAL HISTORY: He is a nonsmoker. No alcohol or IV drug use. FAMILY HISTORY: As I said, is negative for venous thromboembolic disease. ALLERGIES: None. CURRENT MEDICATIONS: Include Tylenol, Trusopt, unfractionated heparin, Dilaudid, lisinopril which w as started this morning, Zofran p.r.n. and normal saline, as well as trazodone at bedtime. PHYSICAL EXAM: VITAL SIGNS: He was afebrile. Heart rate was 99, blood pressure 125/75, oxygen sat uration 97% on 1 liter, respiratory rate of 20. GENERAL: He was awake and alert, in no apparent di stress. Oriented x3 and able to speak in full sentences without using accessory muscles for breathi ng. HEENT: There may be a slight facial droop that was residual from previously, but it is hard to tell. Otherwise his pupils are equally round, reactive to light. Nonicteric and noninjected. Muc ous membranes are moist without erythema or exudate. LUNGS: Breath sounds were diminished, but franki ar to auscultation bilaterally without wheezes, rubs or rales. HEART: Regular rate and rhythm. He is tachycardic without obvious murmurs. ABDOMEN: Soft, nontender, nondistended without hepatosple nomegaly. EXTREMITIES: No clubbing, cyanosis or edema. NEUROLOGICAL: His right lower extremity w as quite weak, though he was able to lift it off the bed and wiggle his toes. He was not able to gr ab my hand on the right side, but was able to at least move his fingers which he was not able to do previously. The left side was nonfocal. Skin was without rash. OBJECTIVE DATA: Includes a CT scan as described above. His white count is 11.4, hematocrit is 37.7, platelets of 128 today. His BNP was 1130. ASSESSMENT/PLAN: Acute pulmonary embolism which is really quite large. I agree with the heparin dr hernández which is therapeutic at this time. Potential strategy that I would like to clear with Neurosurge ry includes changing him to a low-molecular weight heparin tomorrow and starting Coumadin so that we would be able to reverse it in the long-term. I think this is a provoked pulmonary embolism. He d oes have an IVC filter placed for an existing popliteal deep vein thrombosis, but I would anticoagul ate him to an INR of 2-3 for at least 3 months and possibly 6. Since there has been no evidence of increasing intracranial bleeding, I would think that that should be a safe strategy. I do not expec t further bleeding as long as his blood pressure remains controlled. At approximately 4 weeks from now, he should probably have his IVC filter removed at that time. I discussed this with he and his in great detail today, and they seem to agree with the plan. I will run it by Neurosurgery to get confirmation later this afternoon. /[id number]/MODL
--- NOTE | 2016-07-14 15:39 | HOSPPROG ---
Hospitalist Progress Note Assessment/Plan: * acute severe pulmonary embolism in the setting of recent intracranial hemorrhage * continue heparin drip for today than switch over to Lovenox and Coumadin * not hypoxic but still with tachycardia * right lower extremity DVT * IVC placed, will need to be removed outpatient * history of hypertension and hypertensive induced intracranial hemorrhage * blood pressures have been in the 120 range. I am a little bit hesitant to restart both of his medications as he still tachycardic which indicates some element of hemodynamic compromise * will restart lisinopril today and probably Norvasc tomorrow * recent intracranial hemorrhage * cautious anticoagulation as above * we will try to get back to rehab as soon as possible Subjective: no chest pain. Does not feel dyspneic Objective: Vital Signs Temp Pulse Resp BP Pulse Ox 37 C 103 H 20 124/74 H 93 07/14/16 07:49 07/14/16 14:00 07/14/16 14:00 07/14/16 14:00 07/14/16 14:00 Laboratory Results 07/14/16 05:15 07/13/16 07/14/16 07/15/16 05:59 05:59 05:59 Intake Total 2545 Output Total 1100 780 Balance 1445 -780 PT 15.4 SEC (12.0-15.0) H 07/13/16 15:20 INR 1.22 (0.83-1.16) H 07/13/16 15:20 discussed with pulmonology tele personally viewed interpreted sinus tachycardia - Physical Exam Constitutional: no apparent distress, appears nourished, not in pain Eyes: anicteric sclera, EOMI Ears, Nose, Mouth, Throat: moist mucous membranes, hearing normal Cardiovascular: no murmur, rub, or gallop, tachycardia Respiratory: no respiratory distress, no rales or rhonchi, clear to auscultation Gastrointestinal: normoactive bowel sounds, soft, non-tender abdomen, no palpable masses Skin: warm Neurologic: AAOx3 Psychiatric: interacting appropriately, not anxious, not encephalopathic, thought process linear ICD10 Worksheet Patient Problems: Problems Problem Status Onset Cerebral hemorrhage Acute Palpitations Acute Paroxysmal tachycardia Acute
[2016-07-14] MEDS: traZODone 50 MG TAB PO SCH (20:36)
[2016-07-15 05:39] LABS: % IMMATURE GRANULYOCYTES 0.4 % (0.0-1.1); ABSOLUTE IMMATURE GRANULOCYTES 0.03 10^3/uL (0.00-0.10); ADD DIFF? NO; ADD MORPH? NO; ADD SCAN? NO; ATYPICAL LYMPHOCYTE FLAG 10 (0-99); FRAGMENT RBC FLAG 0 (0-99); HEMATOCRIT 33.7 % (40.0-51.0); HEMOGLOBIN 11.4 g/dL (13.7-17.5); LEFT SHIFT FLG 60 (0-99); LIPEMIA HEMOLYSIS FLAG 90 (0-99); MEAN CELL HEMOGLOBIN 30.2 pg (27.9-34.1); MEAN CELL HEMOGLOBIN CONCENTR. 33.8 g/dL (32.4-36.7); MEAN CELL VOLUME 89.2 fL (81.5-99.8); MEAN PLATELET VOLUME 11.5 fL (8.7-11.7); PLATELET CLUMPS FLAG 10 (0-99); PLATELET COUNT 124 10^3/uL (150-400); RED BLOOD CELL COUNT 3.78 10^6/uL (4.40-6.38); RED CELL DISTRIBUTION WIDTH 12.2 % (11.5-15.2)
--- NOTE | 2016-07-15 09:20 | HOSPPROG ---
Hospitalist Progress Note Assessment/Plan: 66 yo M w recent hypertensive ICH now w saddle embolism acute severe pulmonary embolism in the setting of recent intracranial hemorrhage * likely switch to lovenox today w coumadin RV normal size and function; elevated PA pressures noted * not hypoxic but still with tachycardia right lower extremity DVT * IVC placed, will need to be removed outpatient * removal by 08/24/16 history of hypertension and hypertensive induced intracranial hemorrhage * blood pressures have been in the 120 range. \ * continue lisinopril and to hold norvasc recent intracranial hemorrhage * cautious anticoagulation as above * we will try to get back to rehab as soon as possible ? L renal mass: not seen on ultrasound risk: high Subjective: tele: hr in 70's overnight, no arrhythmia (interp by me). case d/w dr fitzgerald. no headache Objective: Vital Signs Temp Pulse Resp BP Pulse Ox 36.6 C 93 20 114/78 96 07/15/16 08:00 07/15/16 08:00 07/15/16 08:00 07/15/16 08:00 07/15/16 08:00 Laboratory Results 07/15/16 05:10 07/14/16 07/15/16 07/16/16 05:59 05:59 05:59 Intake Total 2545 3140 Output Total 1100 2180 Balance 1445 960 PT 15.4 SEC (12.0-15.0) H 07/13/16 15:20 INR 1.22 (0.83-1.16) H 07/13/16 15:20 - Physical Exam Constitutional: no apparent distress, appears nourished Eyes: PERRL, anicteric sclera Ears, Nose, Mouth, Throat: moist mucous membranes, hearing normal Cardiovascular: regular rate and rhythym, no murmur, rub, or gallop, tachycardia , other (fixed split s2) Respiratory: no respiratory distress, no rales or rhonchi Gastrointestinal: normoactive bowel sounds, soft, non-tender abdomen Genitourinary: No de la rosa in urethra Skin: warm, normal color Musculoskeletal: full muscle strength, no muscle tenderness Neurologic: AAOx3, sensation intact bilaterally Psychiatric: interacting appropriately, not anxious Lymph, Heme, Immunologic: no cervical LAD ICD10 Worksheet Patient Problems: Problems Problem Status Onset Cerebral hemorrhage Acute Palpitations Acute Paroxysmal tachycardia Acute
[2016-07-15] MEDS: LISINOPRIL 40 MG TAB PO SCH (10:34)
[2016-07-15] MEDS: MULTIVITAMINS 1 EACH TAB PO SCH (10:34)
[2016-07-15] MEDS: DORZOLAMIDE 2% OPTH DROPS LEFTEYE SCH ×2 (10:34→21:02)
[2016-07-15] MEDS: WARFARIN SODIUM 5 MG TAB PO SCH (15:29)
--- NOTE | 2016-07-15 16:13 | PDINTPN ---
Home Health Clinical Supervisor Progress Note Assessment/Plan: Assessment/plan: 66 M with hypertensive emergency about one month ago complicated by large intra- parenchymal hemorrhage and right-sided hemiparesis. He was treated conservatively and was discharged to rehab, where he subsequently developed what seemed to be idiopathic tachycardia. He was sent back to acute care, but no cause was found. Back in rehab, he continued to complain of tachycardia on exertion that seemed out of proportion. A CTA however, revealed a large saddle PE, and an US showed DVT in the popliteal vein. After discussion with neurosurgery, he was treated with UFH (no bolus) and an IVC filter was placed. He never experienced chest pain or dyspnea. * PE- I have had several lengthy discussions about VTE with the patient and his concerning prognosis and potential complications. He has tolerated UFH without difficulty and I suggest transitioning him to Lovenox and Coumadin for a minimum of 3 months (to 6 months)for his provoked VTE. His target INR should be 2-3. He has a 95-97% chance of complete recovery, though radiographic resolution may take a long time given his large clot burden. He will need his IVC filter removed in 4-6 weeks. If he remains stable on Lovenox/coumadin, he can return to Rehab, where he was making excellent progress. Objective: Vital Signs Temp Pulse Resp BP Pulse Ox 36.6 C 110 H 24 H 115/76 97 07/15/16 12:00 07/15/16 14:00 07/15/16 14:00 07/15/16 14:00 07/15/16 14:00 Laboratory Results 07/15/16 05:10 07/14/16 07/15/16 07/16/16 05:59 05:59 05:59 Intake Total 2545 3140 Output Total 1100 2180 Balance 1445 960 PT 15.4 SEC (12.0-15.0) H 07/13/16 15:20 INR 1.22 (0.83-1.16) H 07/13/16 15:20 Physical Exam - Physical Exam General Appearance: WD/WN, alert, no apparent distress EENT: PERRL/EOMI Neck: supple Respiratory: lungs clear, normal breath sounds, No respiratory distress, No rales, No rhonchi Cardiac/Chest: normal peripheral pulses, regular rate, rhythm, No edema Abdomen: normal bowel sounds, non-tender, soft, No distended Skin: normal color, warm/dry, No cyanosis Extremities: normal range of motion, No pedal edema Neuro/Psych: alert, normal mood/affect, oriented x 3, motor weakness ICD10 Worksheet Patient Problems: Problems Problem Status Onset Cerebral hemorrhage Acute Palpitations Acute Paroxysmal tachycardia Acute
[2016-07-15] MEDS: ENOXAPARIN 60 MG/0.6 ML SYR SC SCH ×2 (18:00→21:01)
[2016-07-15] MEDS: traZODone 50 MG TAB PO SCH (21:01)
[2016-07-16 05:25] LABS: % IMMATURE GRANULYOCYTES 0.4 % (0.0-1.1); ABSOLUTE IMMATURE GRANULOCYTES 0.03 10^3/uL (0.00-0.10); ADD DIFF? NO; ADD MORPH? NO; ADD SCAN? NO; ATYPICAL LYMPHOCYTE FLAG 20 (0-99); FRAGMENT RBC FLAG 0 (0-99); HEMATOCRIT 32.7 % (40.0-51.0); HEMOGLOBIN 11.2 g/dL (13.7-17.5); LEFT SHIFT FLG 60 (0-99); LIPEMIA HEMOLYSIS FLAG 90 (0-99); MEAN CELL HEMOGLOBIN 29.9 pg (27.9-34.1); MEAN CELL HEMOGLOBIN CONCENTR. 34.3 g/dL (32.4-36.7); MEAN CELL VOLUME 87.4 fL (81.5-99.8); MEAN PLATELET VOLUME 10.8 fL (8.7-11.7); PLATELET CLUMPS FLAG 0 (0-99); PLATELET COUNT 137 10^3/uL (150-400); RED BLOOD CELL COUNT 3.74 10^6/uL (4.40-6.38); RED CELL DISTRIBUTION WIDTH 12.1 % (11.5-15.2)
[2016-07-16 05:41] LABS: ANION GAP 4 mEq/L (8-16); CALCIUM 8.6 mg/dL (8.5-10.4); CARBON DIOXIDE 27 mEq/l (22-31); CHLORIDE 108 mEq/L (97-110); CREATININE 0.8 mg/dL (0.7-1.3); GLOMERULAR FILTRATION RATE > 60; GLUCOSE 110 mg/dL (70-100); POTASSIUM 3.9 mEq/L (3.5-5.2); SODIUM 139 mEq/L (134-144)
[2016-07-16 05:42] LABS: INR 1.24 (0.83-1.16); PROTIME(PATIENT) 15.6 SEC (12.0-15.0)
[2016-07-16] MEDS: MULTIVITAMINS 1 EACH TAB PO SCH (09:15)
[2016-07-16] MEDS: ENOXAPARIN 60 MG/0.6 ML SYR SC SCH ×2 (09:15→21:03)
[2016-07-16] MEDS: LISINOPRIL 40 MG TAB PO SCH (09:15)
[2016-07-16] MEDS: DORZOLAMIDE 2% OPTH DROPS LEFTEYE SCH ×2 (09:16→21:03)
--- NOTE | 2016-07-16 09:25 | HOSPPROG ---
Hospitalist Progress Note Assessment/Plan: 66 yo M w recent hypertensive ICH now w saddle embolism acute severe pulmonary embolism in the setting of recent intracranial hemorrhage * switched to lovenox today w coumadin RV normal size and function; elevated PA pressures noted * not hypoxic but still with tachycardia * tachycardia improving right lower extremity DVT * IVC placed, will need to be removed outpatient * removal by 08/24/16 history of hypertension and hypertensive induced intracranial hemorrhage * blood pressures have been in the 120 range. * continue lisinopril and to hold norvasc recent intracranial hemorrhage * cautious anticoagulation as above * we will try to get back to rehab as soon as possible ? L renal mass: not seen on ultrasound risk: high dispo: will attempt to send to inpt rehab 07/17 Subjective: tele: episode of tachycardia this AM that coresponds to AM ADLs. otherwise not tachycardic (interp by me). case d/w serge fitzgerald and sean Objective: Vital Signs Temp Pulse Resp BP Pulse Ox 36.7 C 93 21 H 119/78 98 07/16/16 08:00 07/16/16 08:00 07/16/16 08:00 07/16/16 08:00 07/16/16 08:00 Laboratory Results 07/16/16 05:15 07/16/16 05:15 07/15/16 07/16/16 07/17/16 05:59 05:59 05:59 Intake Total 3140 1563 Output Total 2180 675 Balance 960 888 PT 15.6 SEC (12.0-15.0) H 07/16/16 05:15 INR 1.24 (0.83-1.16) H 07/16/16 05:15 - Physical Exam Constitutional: no apparent distress, appears nourished Eyes: PERRL Ears, Nose, Mouth, Throat: moist mucous membranes, hearing normal Cardiovascular: regular rate and rhythym, no murmur, rub, or gallop, other ( split s2 resolved) Respiratory: no respiratory distress, no rales or rhonchi Gastrointestinal: normoactive bowel sounds, soft, non-tender abdomen Genitourinary: No de la rosa in urethra Skin: warm Musculoskeletal: full muscle strength, no muscle tenderness Neurologic: AAOx3, sensation intact bilaterally Psychiatric: interacting appropriately, not anxious Lymph, Heme, Immunologic: no cervical LAD ICD10 Worksheet Patient Problems: Problems Problem Status Onset Saddle pulmonary embolus Acute Cerebral hemorrhage Acute Palpitations Acute Paroxysmal tachycardia Acute
[2016-07-16] MEDS: WARFARIN SODIUM 5 MG TAB PO SCH (16:41)
--- NOTE | 2016-07-16 17:17 | PDINTPN ---
Chemical Economist Progress Note Assessment/Plan: Assessment/plan: 66 M with hypertensive emergency about one month ago complicated by large intra- parenchymal hemorrhage and right-sided hemiparesis. He was treated conservatively and was discharged to rehab, where he subsequently developed what seemed to be idiopathic tachycardia. He was sent back to acute care, but no cause was found. Back in rehab, he continued to complain of tachycardia on exertion that seemed out of proportion. A CTA however, revealed a large saddle PE, and an US showed DVT in the popliteal vein. After discussion with neurosurgery, he was treated with UFH (no bolus) and an IVC filter was placed. He never experienced chest pain or dyspnea. * PE- Stable on Lovenox/coumadin. Anticipate dc to rehab tomorrow 07/16/16 17:16 Objective: Vital Signs Temp Pulse Resp BP Pulse Ox 37.1 C 87 18 143/80 H 96 07/16/16 16:00 07/16/16 16:00 07/16/16 16:00 07/16/16 16:00 07/16/16 16:00 Laboratory Results 07/16/16 05:15 07/16/16 05:15 07/15/16 07/16/16 07/17/16 05:59 05:59 05:59 Intake Total 3140 1563 Output Total 2180 675 200 Balance 960 888 -200 PT 15.6 SEC (12.0-15.0) H 07/16/16 05:15 INR 1.24 (0.83-1.16) H 07/16/16 05:15 Physical Exam - Physical Exam General Appearance: alert, no apparent distress EENT: PERRL/EOMI Neck: supple Respiratory: lungs clear, normal breath sounds, No respiratory distress Cardiac/Chest: normal peripheral pulses, regular rate, rhythm, No edema Abdomen: normal bowel sounds, non-tender, soft Skin: normal color, warm/dry Lymphatic: no adenopathy Extremities: No pedal edema Neuro/Psych: alert, normal mood/affect, oriented x 3 ICD10 Worksheet Patient Problems: Problems Problem Status Onset Saddle pulmonary embolus Acute Cerebral hemorrhage Acute Palpitations Acute Paroxysmal tachycardia Acute
[2016-07-16] MEDS: traZODone 50 MG TAB PO SCH (21:03)
[2016-07-17 05:48] LABS: INR 1.29 (0.83-1.16); PROTIME(PATIENT) 16.1 SEC (12.0-15.0)
[2016-07-17 06:32] VITALS: TEMP 97.8
[2016-07-17 08:21] VITALS: BP 133/93
[2016-07-17] MEDS: MULTIVITAMINS 1 EACH TAB PO SCH (08:21)
[2016-07-17] MEDS: ENOXAPARIN 60 MG/0.6 ML SYR SC SCH (08:21)
[2016-07-17] MEDS: LISINOPRIL 40 MG TAB PO SCH (08:21)
[2016-07-17] MEDS: DORZOLAMIDE 2% OPTH DROPS LEFTEYE SCH (08:21)
--- NOTE | 2016-07-17 09:24 | HOSPPROG ---
Hospitalist Progress Note Assessment/Plan: 66 yo M w recent hypertensive ICH now w saddle embolism acute severe pulmonary embolism in the setting of recent intracranial hemorrhage * switched to lovenox today w coumadin RV normal size and function; elevated PA pressures noted * not hypoxic but still with tachycardia * tachycardia improving * follow inr daily. overlap w therpeutic inr X 1 day right lower extremity DVT * IVC placed, will need to be removed outpatient * removal by 08/24/16 history of hypertension and hypertensive induced intracranial hemorrhage * blood pressures have been in the 120 range. * continue lisinopril and to hold norvasc recent intracranial hemorrhage * cautious anticoagulation as above * we will try to get back to rehab as soon as possible ? L renal mass: not seen on ultrasound risk: high dispo: to acute inpt rehab today > 30 minutes on dc Subjective: ready for dc Objective: Vital Signs Temp Pulse Resp BP Pulse Ox 36.6 C 85 15 133/93 H 96 07/17/16 05:00 07/17/16 04:00 07/17/16 04:00 07/17/16 08:21 07/17/16 04:00 Laboratory Results 07/16/16 05:15 07/16/16 05:15 07/16/16 07/17/16 07/18/16 05:59 05:59 05:59 Intake Total 1563 1750 Output Total 675 2250 Balance 888 -500 PT 16.1 SEC (12.0-15.0) H 07/17/16 05:25 INR 1.29 (0.83-1.16) H 07/17/16 05:25 - Physical Exam Constitutional: no apparent distress, appears nourished Eyes: PERRL, anicteric sclera Ears, Nose, Mouth, Throat: moist mucous membranes, hearing normal Cardiovascular: regular rate and rhythym, no murmur, rub, or gallop Respiratory: no respiratory distress, no rales or rhonchi Gastrointestinal: normoactive bowel sounds, soft, non-tender abdomen Genitourinary: no bladder fullness, No de la rosa in urethra Skin: warm, normal color Musculoskeletal: full muscle strength, other Neurologic: AAOx3 ICD10 Worksheet Patient Problems: Problems Problem Status Onset Saddle pulmonary embolus Acute Cerebral hemorrhage Acute Palpitations Acute Paroxysmal tachycardia Acute
--- NOTE | 2016-07-17 09:28 | PDIAF ---
- Diagnosis Diagnosis: saddle PE, DVT, IVC filter, recent hemorrhagoc stroke Code Status: Full Code - Medication Management Discharge Medications: Medications to Continue on Transfer Dorzolamide 2% [Trusopt 2% (*)] 1 drops LEFTEYE BID 06/16/16 [Last Taken ] Multivitamins [Multivitamin (*)] 1 each PO DAILY 06/16/16 [Last Taken 07/13/16] Acetaminophen [Tylenol 325mg (*)] 650 mg PO Q4 PRN #0 tab 06/23/16 [Last Taken 07/10/16 18:52] Lisinopril [Zestril 40 mg (*)] 40 mg PO DAILY tab 06/23/16 [Last Taken 07/13/16 ] Magnesium Hydroxide [Milk of Magnesia] 30 ml PO DAILY PRN #30 oral.susp [Last Taken Unknown] Polyethylene Glycol 3350 [Miralax 17 gm (*)] 17 gm PO DAILY PRN #0 pkt 06/23/16 [Last Taken 07/04/16 08:49] traZODone [traZODONE 50MG (*)] 25 mg PO HS 07/13/16 [Last Taken 07/12/16] Enoxaparin [Lovenox 60 MG (*)] 60 mg SC BID #0 syr 07/17/16 [Last Taken Unknown] Sodium Cl Nasal [[place] (*)] 1 spray [place] PRN PRN #0 btl 07/17/16 [ Last Taken Unknown] Warfarin Sodium [Coumadin 5MG (*)] 5 mg PO DAILY AT 4PM #0 tab 07/17/16 [Last Taken Unknown] Discharge Medications: Refer to the Discharge Home Medication list for PRN reason. - Orders Services needed: Registered Nurse, Physical Therapy, Occupational Therapy, Speech Language Pathologist Diet Recommendation: no restrictions on diet Diet Texture: Regular Texture Diet - Labs/Radiology PT/INR Date: 07/18/16 (daily until INR > 2; overlap therapeutic inr w lovenox X 1 day. check q 2days thereafter. goal 2-3) - Follow Up Care Current Providers and Referrals: MD ABY [Other] - As per Instructions
[2016-07-17 10:04] VITALS: PULSE 82; RESP 28; O2SAT 97
--- NOTE | 2016-07-17 10:07 | GDS ---
[f rep st] DISCHARGE SUMMARY DISCHARGE DIAGNOSES: 1. Saddle pulmonary embolism with right heart strain and mild hypotension. 2. Right lower extremity deep venous thrombosis, status post IVC filter. 3. Hypertension. 4. Recent left parietal intraparenchymal hemorrhage with right hemiparesis. CONSULTATIONS: Pulmonary Critical Care. PROCEDURE: IVC filter placement performed on 07/13/2016, indication being saddle pulmonary embolism with residual DVT. HOSPITAL COURSE: Please see admission history and physical by Dr. Christopher Velasco. The patient presented on the evening of the to CAT scan for tachycardia, and it showed a saddle pulmonary embolism. Also noted at that time was evidence of some septal flattening, consistent with right heart strain. On presentation, he had an elevated BNP of 155 and a troponin of 0.05. Normal in this lab is less than 0.034. These peaked at 0.056 and 1130, respectively, but have fallen. He has not been hypotensive, although his antihypertensives have been reduced from Norvasc 5 and lisinopril 40 to just lisinopril 40. He was tachycardic on presentation, in the 110s to 120s, and currently he has a resting pulse in the 70s and 80s. He does get tachycardic with exercise. He has not had hemoptysis nor has he had an oxygen requirement. Upon presentation, Neurosurgery was consulted, reviewed his scans, and felt that heparin drip without bolus was the appropriate initial management and that was what was performed. He was watched without evidence of headache or increasing neurologic signs for 2 days while on heparin drip and then transitioned to weight-based Lovenox with warfarin 5 mg. Goal INR 2-3 with a planned duration of anticoagulation for 6 months, which would be roughly mid December 2016. Goal for IVC filter removal is August 24, 2016. It is likely the patient will remain in [place] for this period of time. Dangling issues at the time of discharge: 1. Removal of IVC filter. 2. Achievement of therapeutic INR. a. The patient should have Lovenox 60 b.i.d. continued until his INR is therapeutic for 1 day. His goal is 2-3 with really less than 2.5 being ideal. The patient is currently discharged only on lisinopril. His goal blood pressure is less than 130/90. Should he require the an additional antihypertensive, we will start at 2.5 of Norvasc instead of 5. The patient is currently discharged to inpatient rehab at the [facility]. Copy requested to: Rm Miner [facility] /[id number]/MODL MTDD
== END 2016-07-17 11:00 | DRG 167 ==
LOC: F2N 18:33
PROVIDERS: ADMIT Internal Medicine; ATTEND Internal Medicine
PROC: 06H03DZ Insertion of Intraluminal Device into Inferior Vena Cava, Percutaneous Approach (ICD-10-PCS; principal; 2016-07-13)
DX: I26.92 Saddle embolus of pulmonary artery without acute cor pulmonale (principal); I82.431 Acute embolism and thrombosis of right popliteal vein; I10 Essential (primary) hypertension
CPT/HCPCS: 85520-90; 97110-GO; 97112-GP; 97162-GP; 97166-GO; 97530-GO; 97530-GP; 97535-GO; C1769; G0378; G8978-GP-CL; G8979-GP-CK; G8987-GO-CL; G8988-GO-CJ; J1644; J1650; J3010; Q9967

== ENCOUNTER 2016-07-17 10:25 | Inpatient (IN) | payer OTHER, BC ==
[2016-07-17] MEDS ORDERED: POLYETHYLENE GLYCOL 3350 17 GM PKT PO PRN (12:58)
[2016-07-17] MEDS ORDERED: SODIUM CL NASAL 45 ML BTL EACHNARE PRN (12:58)
[2016-07-17] MEDS ORDERED: MAGNESIUM HYDROXIDE 30 ML UDCUP PO PRN (12:58)
[2016-07-17] MEDS ORDERED: ACETAMINOPHEN 325 MG TAB PO PRN (12:58)
[2016-07-17] MEDS: WARFARIN SODIUM 5 MG TAB PO SCH (15:31)
--- NOTE | 2016-07-17 15:48 | PDOREHIP ---
Admission [facility] - Admission - 3 Day Assessment Period Admission Date/Day 1: 07/17/16 Day 2: 07/18/16 Day 3: 07/19/16 - Active Diagnoses Comorbidities and Co-existing Conditions at Admission: 09538. None of the Above - Skin Conditions Unhealed Pressure Ulcer (1 or more/Stage 1 or >)-Admission: 0. No
[2016-07-17] MEDS ORDERED: WARFARIN SODIUM 5 MG TAB PO SCH (16:00)
--- NOTE | 2016-07-17 17:38 | GHP ---
[f rep st] HISTORY AND PHYSICAL POST ADMISSION PHYSICIAN EVALUATION AND REHABILITATION TREATMENT PLAN DATE OF ADMISSION: 07/17/2016 DATE OF EVALUATION: 07/17/2016. TIME OF EVALUATION: 12:30 p.m. approximately. REFERRING FACILITY: [facility]. REFERRING PHYSICIAN: Christopher Velasco MD DATE OF ONSET: 06/16/2016 REHABILITATION DIAGNOSIS: Stroke. IMPAIRMENT GROUP/ETIOLOGIC DIAGNOSES: 1.2 stroke, right body. HISTORY OF PRESENT ILLNESS: This is a 66-year-old male readmitted with a left parietal intraparenchymal hemorrhage, and right hemiparesis, status post the diagnosis and treatment of a saddle pulmonary embolism on 07/13/2016, which was treated at MICU, and also with placement of an IVC filter. The patient was transferred to [facility] from inpatient rehabilitation at [facility] on 07/13/2016 due to tachycardia and decreased blood pressure, and was diagnosed with a saddle PE on CTA. Right lower extremity DVT was noted also on ultrasound that was diagnosed 07/13/2016 as well. IVC filter was placed to be removed on 08/14/2016. In ICU , he was started on heparin, transitioned to Lovenox, treatment dose, and also on warfarin, and will be bridged on Lovenox. He has had some low-grade dyspnea , mostly associated with exertion, and that has been affecting his rehab performance somewhat. Today, he notes no signs of symptoms related to the pulmonary embolus, with the exception of dyspnea on exertion. Otherwise, he says he feels fine, has had no chest pain or shortness of breath. As additional history leading up to his initial inpatient rehab admission, please see the history and physical by Dr. Vanessa on 06/23/2016 for full details , but, briefly, the patient initially presented to the emergency department with acute-onset right upper and lower extremity weakness, and eventually lost his ability to speak in the emergency department as well. He was hypertensive, with a systolic blood pressure greater than 200, and was found to have a large intraparenchymal hemorrhage on CT scan on 06/16/2016. The hemorrhage was located in the left parietal lobe, with edema and mild mass effect causing a right shift. Subsequent CT showed stability and MRI of the brain on 06/18/2016 showed no additional etiology for the bleed. MR angiogram also showed no other source of the hemorrhage. He was acutely controlled, and also treated with hypertonic saline for hyponatremia. Blood pressure was eventually controlled, and he had additional workup for infectious or metabolic etiologies, and they felt that the bleed was due to Valsalva for constipation. He had an ileus on imaging, which was resolved with laxatives, and, interestingly, at the time, he was noted to have an elevated D-dimer, though an ultrasound of his right lower leg showed saphenous vein thrombosis, but no DVT. At the time, a chest CT also was done, and it was negative for pulmonary embolus. He was stabilized and transferred to inpatient rehab for continued therapy. On that initial admission , he did have a complication of tachycardia, was transferred over to [facility] for evaluation without etiology identified, and transferred back, then transferred back over for further evaluation, and found the PE, as noted above. REVIEW OF SYSTEMS: Patient denied any dyspnea at rest. All other systems are negative, except for as described above. PRECAUTIONS: Fall. ACTIVE COMORBIDITIES: DVT and PE, hemiparesis, hypertension, and cognitive impairments. PAST MEDICAL/SURGICAL HISTORY: Includes hypertension, intracranial hemorrhage, as noted above, glaucoma, and BPH. FAMILY HISTORY: No neurological disease in the family. 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 No alcohol, drugs or tobacco. He lives with his , and has two sons at in [place], and he was here on vacation when he had his symptoms. ALLERGIES: No known drug allergies. PREHOSPITAL MEDICATIONS: Include dorzolamide drops. No other medications. ADMISSION MEDICATIONS: 1. Dorzolamide 2% 1 drop left eye b.i.d. 2. Multivitamins 1 each p.o. daily. 3. Acetaminophen 650 mg p.o. q.4 hours p.r.n. for pain. 4. Lisinopril 40 mg daily. 5. Magnesium hydroxide 30 mL p.o. daily p.r.n. for constipation. 6. Polyethylene glycol or MiraLAX 17 g p.o. daily p.r.n. 7. Trazodone 50 mg tablet, 25 mg p.o. q.h.s. 8. Enoxaparin 60 mg subcutaneous b.i.d. 9. Sodium chloride nasal 1 spray to each naris as needed. 10. Warfarin sodium 5 mg p.o. daily at 4 p.m. PHYSICAL EXAMINATION: VITAL SIGNS: Temperature 36.6, blood pressure 128/84, pulse of 71, respirations were 15, saturating 96% on room air. GENERAL: He is no apparent distress, sitting in bed, with his in the room, normally developed. EYES: Anicteric. Pupils equal, round, and reactive to light. EARS , NOSE, MOUTH, THROAT: Moist mucous membranes. Normal dentition. CARDIOVASCULAR: Regular rate and rhythm. Normal S1, S2. No murmurs are appreciated. No lower extremity edema. EXTREMITIES: Warm. RESPIRATORY: Breathing comfortably on room air. LUNGS: Clear to auscultation bilaterally. No wheezes, rhonchi or rales. GASTROINTESTINAL: Abdomen is nondistended. Positive bowel sounds. No tenderness. GENITOURINARY: No Deleon in place. Normal male genitalia. MUSCULOSKELETAL: No contracture noted. No gross deformities. He noted a little bit of pain and tenderness in his right wrist that got caught on a transfer. No swelling or redness. No pain on movement. SKIN: Showed no rash or skin breakdown. No bruising. PSYCHIATRIC: He is appropriate, pleasant, cooperative, and normal mood, normal affect and thought content. HEMATOLOGIC/LYMPH: No supraclavicular lymphadenopathy. No cervical adenopathy. NEUROLOGIC: Mental status: The patient is alert, oriented to self and situation, otherwise mental status was deferred. Cranial nerves 2-12 were otherwise intact, with a mild facial droop. Strength was 5/5 on the left in the upper and lower limbs, but on the right was trace to 1/5 in the finger flexors and extensors, absent in the wrist extensor, biceps, triceps, and shoulder. On the right side, he also had 1/5 in the hip flexors, knee extensors , and 0/5 in the ankle dorsiflexor, plantar flexor, and EHL. Reflexes were brisk on the right, 3+ in the biceps, triceps, brachial radialis, patella and Achilles, and he had upgoing toes on the right, and downgoing on the left. He had a positive Xavier's on the right. No spasticity was appreciated. Sensation was decreased on the right to light touch compared to the left. Neglect was not checked. He had intact rapid-alternating movements on the left , and could not test on the right; he was not ambulated at the time. LABORATORY DATA: Results reviewed. I personally reviewed the CTA showing the saddle PE. Also, his current INR is 1.29, and he has some mild anemia. ASSESSMENT AND PLAN: This is a very pleasant 66-year-old male with a dense right-sided hemiparesis starting on 06/16/2016, resulting from a large left parietal lobe intraparenchymal hemorrhage, now complicated by a saddle pulmonary embolus diagnosed on 07/13/2016, now returning to inpatient rehabilitation with impairments in mobility and self-care, with the goal to discharge home in [place] with his and family. He appears ready for inpatient rehabilitation again, he has goals and appears to be able to tolerate 3 hours of therapy a day. He has medical needs and needs the overall supervision of a multidisciplinary team. Specific issues were discussed below: 1. Status post left-sided parietal intraparenchymal hemorrhage with right- sided hemiparesis, cognitive impairments: He will get treatment for impaired mobility with PT, and impairments and self-care from occupational therapy. He will also get cognitive treatment from speech language pathology for his impairments. Additionally, he will need a right-sided ankle-foot orthosis, as he has had good benefit from the loaner here at [facility] Inpatient Re[facility], and I am getting Orthotics consult for custom-molded right-sided AFO, with an uncut Tamarik hinge. 2. Deep vein thrombosis/pulmonary embolus: He will need ongoing anticoagulation for 3-6 months, warfarin, with a goal INR of 2-3. He is bridging on Lovenox until he is therapeutic for 1-2 days to prevent warfarin skin necrosis. He also has an IVC filter in place, and that will need to be removed by 08/14/2016. 3. Hypertension: Continue treatment with lisinopril 40 mg daily, and keep stool soft to prevent Valsalva. 4. Glaucoma: Continue dorzolamide. 5. Insomnia: Continue trazodone q.h.s. p.r.n. for insomnia. 6. Anemia: Monitor for improvement. Clinically, no need to monitor lab serially. 7. Code status: Full code. 8. Prophylaxis: He is currently on treatment dose for Lovenox bridging to warfarin. 9. Skin: No skin issues. 10. Estimated length of stay/disposition: Ten to 14 days, needing 60-90 minutes of PT/OT and speech daily 7 days a week. Goal to discharge home with home health, PT/OT, speech in [place] with his family. The patient is medically stable for participation in inpatient rehabilitation. I have reviewed the preadmission screen and do not identify any relevant changes to the patient's status since this was completed. Goal is Mod I for mobility and self care, with supervision for low intensity IADLS, and for him to be independent with his medication management including warfarin dosing. /[id number]/MODL MTDD
[2016-07-17] MEDS: traZODone 50 MG TAB PO SCH (20:58)
[2016-07-17] MEDS: ENOXAPARIN 60 MG/0.6 ML SYR SC SCH (20:58)
[2016-07-18] MEDS: DORZOLAMIDE 2% OPTH DROPS LEFTEYE SCH ×3 (04:24→20:43)
[2016-07-18] MEDS: MULTIVITAMINS 1 EACH TAB PO SCH (08:31)
[2016-07-18] MEDS: ENOXAPARIN 60 MG/0.6 ML SYR SC SCH ×2 (08:31→20:44)
[2016-07-18] MEDS: LISINOPRIL 40 MG TAB PO SCH (10:10)
[2016-07-18 12:23] LABS: INR 1.4 (0.83-1.16); PROTIME(PATIENT) 17.1 SEC (12.0-15.0)
--- NOTE | 2016-07-18 14:29 | SOAPPROG ---
[facility] Progress Note Assessment/Plan: A/P:This is a very pleasant 66-year-old male with a dense right-sided hemiparesis starting on 06/16/2016, resulting from a large left parietal lobe intraparenchymal hemorrhage, now complicated by a saddle pulmonary embolus diagnosed on 07/13/2016, now returning to inpatient rehabilitation with impairments in mobility and self-care, with the goal to discharge home in [place] with his and family. 07/18/2016- INR 1.4, appreciated pharmacy assistance with dosing of warfarin. I will give pt education materials on stroke prevention and warfarin. Liberalized diet to regular, discussed with patient. 1. Status post left-sided parietal intraparenchymal hemorrhage with right- sided hemiparesis, cognitive impairments: He will get treatment for impaired mobility with PT, and impairments and self-care from occupational therapy. He will also get cognitive treatment from speech language pathology for his impairments. Additionally, he will need a right-sided ankle-foot orthosis, as he has had good benefit from the loaner here at [facility] Inpatient Rehab, and I am getting Orthotics consult for custom-molded right-sided AFO, with an uncut Tamarik hinge. 2. Deep vein thrombosis/pulmonary embolus: He will need ongoing anticoagulation for 3-6 months, warfarin, with a goal INR of 2-3. He is bridging on Lovenox until he is therapeutic for 1-2 days to prevent warfarin skin necrosis. He also has an IVC filter in place, and that will need to be removed on 08/14/2016 (to coordinate removal in [place] with ). 3. Hypertension: Continue treatment with lisinopril 40 mg daily, and keep stool soft to prevent Valsalva. If additional antihypertensive needed, would start norvasc 2.5 mg daily. 4. Glaucoma: Continue dorzolamide. 5. Insomnia: Continue trazodone q.h.s. p.r.n. for insomnia. 6. Anemia: Monitor for improvement. Clinically, no need to monitor lab serially. 7. Code status: Full code. 8. Prophylaxis: He is currently on treatment dose for Lovenox bridging to warfarin. 9. Skin: No skin issues. 10. Estimated length of stay/disposition: Ten to 14 days, needing 60-90 minutes of PT/OT and speech daily 7 days a week. Goal to discharge home with home health, PT/OT, speech in [place] with his family. 07/18/16 14:24 Subjective: CC: displeasure with diet Pt and concerned about cardiac diet. Explained relevance to stroke, and he would like a regular diet. No chest pain or cough, mild dsypnea on exertion in therapies. They had questions about stroke prevention and warfarin, I am providing education materials and teaching. No bleeding or bruising. Objective: Vital Signs Temp Pulse Resp BP Pulse Ox 36.9 C 102 H 18 118/83 H 95 07/18/16 10:02 07/18/16 10:02 07/18/16 10:02 07/18/16 10:10 07/18/16 10:02 07/17/16 07/18/16 07/19/16 05:59 05:59 05:59 Intake Total 540 900 Output Total 1510 Balance -970 900 PT 17.1 SEC (12.0-15.0) H 07/18/16 11:13 INR 1.40 (0.83-1.16) H 07/18/16 11:13 Physical Exam - Physical Exam General Appearance: alert, no apparent distress EENT: No scleral icterus (R), No scleral icterus (L) Respiratory: lungs clear, normal breath sounds, No respiratory distress, No accessory muscle use Cardiac/Chest: normal peripheral pulses, regular rate, rhythm Skin: normal color, warm/dry Extremities: No pedal edema, No swelling Neuro/Psych: alert, normal mood/affect ICD10 Worksheet Patient Problems: Problems Problem Status Onset Cerebral hemorrhage Acute Palpitations Acute Paroxysmal tachycardia Acute Saddle pulmonary embolus Acute
[2016-07-18] MEDS: WARFARIN SODIUM 5 MG TAB PO SCH (15:49)
[2016-07-18] MEDS: traZODone 50 MG TAB PO SCH (20:44)
[2016-07-19 08:00] LABS: INR 1.74 (0.83-1.16); PROTIME(PATIENT) 20.4 SEC (12.0-15.0)
[2016-07-19] MEDS: MULTIVITAMINS 1 EACH TAB PO SCH (08:39)
[2016-07-19] MEDS: LISINOPRIL 40 MG TAB PO SCH (08:40)
[2016-07-19] MEDS: ENOXAPARIN 60 MG/0.6 ML SYR SC SCH ×2 (08:42→21:04)
[2016-07-19] MEDS: DORZOLAMIDE 2% OPTH DROPS LEFTEYE SCH ×2 (08:43→21:04)
--- NOTE | 2016-07-19 15:17 | SOAPPROG ---
[facility] Progress Note Assessment/Plan: Assessment: A/P:This is a very pleasant 66-year-old male with a dense right-sided hemiparesis starting on 06/16/2016, resulting from a large left parietal lobe intraparenchymal hemorrhage, now complicated by a saddle pulmonary embolus diagnosed on 07/13/2016, returned to inpatient rehabilitation 07/17/16 with impairments in mobility and self-care, with the goal to discharge home in [place] with his and family. * Status post left-sided parietal intraparenchymal hemorrhage with right-sided hemiparesis, cognitive impairments: PT and OT to optimize mobility and ADLs. Encouraging return of movement RUE noted 07/19/16, and ambulating 40'. Right- sided ankle-foot orthosis, as he has had good benefit from the loaner here at [facility] Inpatient Rehab. Orthotics consult for custom-molded right-sided AFO, with an uncut Tamarik hinge. * Cognitive issues s/p CVA. 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 * Deep vein thrombosis/pulmonary embolus: He will need ongoing anticoagulation for 3-6 months, warfarin, with a goal INR of 2-3. He is bridging on Lovenox until he is therapeutic for 1-2 days. He also has an IVC filter in place, and that will need to be removed on 08/14/2016 (to coordinate removal in [place] with ). * Hypertension: Continue treatment with lisinopril 40 mg daily, and keep stool soft to prevent Valsalva. If additional antihypertensive needed, would start norvasc 2.5 mg daily. * Glaucoma: Continue dorzolamide. * Insomnia: Continue trazodone q.h.s. p.r.n. for insomnia. * Anemia: Monitor for improvement. Clinically, no need to monitor lab serially. * Prophylaxis: He is currently on treatment dose for Lovenox bridging to warfarin. 07/19/16 15:10 Subjective: Reports some return of movement to R hand. Walked 40' min A today. Sleeping OK. No f/c, cough/dyspnea. Objective: Vital Signs Temp Pulse Resp BP Pulse Ox 36.9 C 76 16 124/84 H 93 07/19/16 06:36 07/19/16 06:36 07/19/16 06:36 07/19/16 08:40 07/19/16 06:36 07/18/16 07/19/16 07/20/16 05:59 05:59 05:59 Intake Total 540 1390 1084 Output Total 1510 1650 250 Balance -970 -260 834 PT 20.4 SEC (12.0-15.0) H 07/19/16 06:00 INR 1.74 (0.83-1.16) H 07/19/16 06:00 Physical Exam - Physical Exam General Appearance: WD/WN, alert, no apparent distress Respiratory: normal breath sounds, No crackles, No rhonchi, No wheezing Skin: normal color, warm/dry Neuro/Psych: alert, normal mood/affect, oriented x 3, motor weakness (has some wrist extension/flexion and finger externsion/flexion RUE) ICD10 Worksheet Patient Problems: Problems Problem Status Onset Cerebral hemorrhage Acute Palpitations Acute Paroxysmal tachycardia Acute Saddle pulmonary embolus Acute
[2016-07-19] MEDS: WARFARIN SODIUM 5 MG TAB PO SCH (16:12)
[2016-07-19] MEDS: traZODone 50 MG TAB PO SCH (21:03)
[2016-07-20] MEDS: MULTIVITAMINS 1 EACH TAB PO SCH (08:14)
[2016-07-20] MEDS: ENOXAPARIN 60 MG/0.6 ML SYR SC SCH ×2 (08:14→20:59)
[2016-07-20] MEDS: LISINOPRIL 40 MG TAB PO SCH (08:14)
[2016-07-20] MEDS: DORZOLAMIDE 2% OPTH DROPS LEFTEYE SCH ×2 (09:30→21:02)
[2016-07-20 11:16] LABS: INR 1.86 (0.83-1.16); PROTIME(PATIENT) 21.5 SEC (12.0-15.0)
--- NOTE | 2016-07-20 11:21 | SOAPPROG ---
[facility] Progress Note Assessment/Plan: A/P:This is a very pleasant 66-year-old male with a dense right-sided hemiparesis starting on 06/16/2016, resulting from a large left parietal lobe intraparenchymal hemorrhage, now complicated by a saddle pulmonary embolus diagnosed on 07/13/2016, returned to inpatient rehabilitation 07/17/16 with impairments in mobility and self-care, with the goal to discharge home in [place] with his and family. 05/22/2016- Participating well in therapies, neurologically improving. Sill subtherapeutic INR. Continue plan, appreciate help from pharmacy for warfarin dosing. 25 minutes was spent on the floor in the care of the patient, the majority was spent in the counseling and coordination of care regarding functional capacity and the benefits of an AFO, as well as research studies regarding stem cell transplants and stroke. * Status post left-sided parietal intraparenchymal hemorrhage with right-sided hemiparesis, cognitive impairments: PT and OT to optimize mobility and ADLs. Encouraging return of movement RUE noted 07/19/16, and ambulating 40'. Right- sided ankle-foot orthosis, as he has had good benefit from the loaner here at [facility] Inpatient Rehab. Orthotics consult for custom-molded right-sided AFO, with an uncut Tamarik hinge. * Cognitive issues s/p CVA. 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 * Deep vein thrombosis/pulmonary embolus: He will need ongoing anticoagulation for 3-6 months, warfarin, with a goal INR of 2-3. He is bridging on Lovenox until he is therapeutic for 1-2 days. He also has an IVC filter in place, and that will need to be removed on 08/14/2016 (to coordinate removal in [place] with ). * Hypertension: Continue treatment with lisinopril 40 mg daily, and keep stool soft to prevent Valsalva. If additional antihypertensive needed, would start norvasc 2.5 mg daily. * Glaucoma: Continue dorzolamide. * Insomnia: Continue trazodone q.h.s. p.r.n. for insomnia. * Anemia: Monitor for improvement. Clinically, no need to monitor lab serially. * Prophylaxis: He is currently on treatment dose for Lovenox bridging to warfarin. 07/18/16 14:24 07/20/16 11:18 Subjective: CC: neurological stability and anticoag no acute events overnight. Has continually improving strength and sensation, working well in therapies and starting to ambulate with the AFO. Answered questions regarding anticoagulation and research studies in stroke. No chest pain, dyspnea, and has reduced swelling on R side as activity increases. Objective: Vital Signs Temp Pulse Resp BP Pulse Ox 36.5 C 85 14 124/81 H 95 07/20/16 08:07 07/20/16 08:07 07/20/16 08:07 07/20/16 08:07 07/20/16 08:07 07/19/16 07/20/16 07/21/16 05:59 05:59 05:59 Intake Total 1390 1738 Output Total 1650 1325 450 Balance -260 413 -450 PT TNP 07/20/16 Unknown INR TNP 07/20/16 Unknown Physical Exam - Physical Exam General Appearance: alert, no apparent distress, thin EENT: No scleral icterus (R), No scleral icterus (L) Respiratory: No respiratory distress, No accessory muscle use Cardiac/Chest: normal peripheral pulses, regular rate, rhythm, edema (Right side , depedendent, improving) Skin: normal color, warm/dry Extremities: non-tender Neuro/Psych: alert, normal mood/affect, motor weakness (still 1/5 on R finger flexors and extensors, but better. 1/5 APF on R) ICD10 Worksheet Patient Problems: Problems Problem Status Onset Cerebral hemorrhage Acute Palpitations Acute Paroxysmal tachycardia Acute Saddle pulmonary embolus Acute
[2016-07-20] MEDS ORDERED: WARFARIN SODIUM 5 MG TAB PO ONE (16:00)
[2016-07-20] MEDS: traZODone 50 MG TAB PO SCH (20:59)
[2016-07-21 07:58] LABS: INR 2.14 (0.83-1.16); PROTIME(PATIENT) 24.1 SEC (12.0-15.0)
[2016-07-21] MEDS: DORZOLAMIDE 2% OPTH DROPS LEFTEYE SCH ×2 (08:58→21:16)
[2016-07-21] MEDS: LISINOPRIL 40 MG TAB PO SCH (08:59)
[2016-07-21] MEDS: MULTIVITAMINS 1 EACH TAB PO SCH (08:59)
[2016-07-21] MEDS: ENOXAPARIN 60 MG/0.6 ML SYR SC SCH ×2 (09:00→21:16)
--- NOTE | 2016-07-21 12:15 | SOAPPROG ---
[facility] Progress Note Assessment/Plan: Assessment: 66-year-old male with a dense right-sided hemiparesis starting on 06/16/2016, resulting from a large left parietal lobe intraparenchymal hemorrhage, now complicated by a saddle pulmonary embolus diagnosed on 07/13/2016, returned to inpatient rehabilitation 07/17/16 with impairments in mobility and self-care, with the goal to discharge home in [place] with his and family. * Status post left-sided parietal intraparenchymal hemorrhage with right-sided hemiparesis, cognitive impairments: Initial FIM 54 on 07/02/16; improved to 65 on 07/09/16; FIM 78 on 07/21/16. Walked 30' min A quad cane. Squat-pivot T'mynor SBA. Motor planning deficit and decreased new learning. UB dressing SBA, LB min A. Toileting CGA to min A. Continue PT and OT to optimize mobility and ADLs. Orthotics consult for custom-molded right-sided AFO, with an uncut Tamarik hinge. * Cognitive issues s/p CVA. Mild to mod decreased SOP & memory, decreased new learning. 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 * Deep vein thrombosis/pulmonary embolus: He will need ongoing anticoagulation for 3-6 months, warfarin, with a goal INR of 2-3. He is bridging on Lovenox until he is therapeutic for 1-2 days. He also has an IVC filter in place, and that will need to be removed on 08/14/2016 (to coordinate removal in [place] with ). * Hypertension: Continue treatment with lisinopril 40 mg daily, and keep stool soft to prevent Valsalva. If additional antihypertensive needed, would start norvasc 2.5 mg daily. * Glaucoma: Continue dorzolamide. * Insomnia: Continue trazodone q.h.s. p.r.n. for insomnia. * Anemia: Monitor for improvement. Clinically, no need to monitor lab serially. * Prophylaxis: He is currently on treatment dose for Lovenox bridging to warfarin. Attended staffing, 15 min. D/W case mgmt, nursing, screen printer helper, pharmacist, PT, OT, CANTEEN MANAGER. He and want to continue IPR as long as possible. [facility] discharge; may need arrangements to return to [place] and SNF there. Plan for discharge 08/04/16. 07/21/16 16:45 Objective: Vital Signs Temp Pulse Resp BP Pulse Ox 36.6 C 69 16 135/82 H 94 07/21/16 06:25 07/21/16 06:25 07/21/16 06:25 07/21/16 06:25 07/21/16 06:25 07/20/16 07/21/16 07/22/16 05:59 05:59 05:59 Intake Total 1738 836 360 Output Total 1325 1375 300 Balance 413 -539 60 PT 24.1 SEC (12.0-15.0) H 07/21/16 06:08 INR 2.14 (0.83-1.16) H 07/21/16 06:08 - Time Spent With Patient Time Spent With Patient: Greater than 35 minutes floor time today, including more than 50% of time in coordination of care during staffing meeting, and counseling patient. Physical Exam - Physical Exam General Appearance: WD/WN, alert, no apparent distress Respiratory: normal breath sounds, No crackles, No rhonchi, No wheezing Cardiac/Chest: regular rate, rhythm, No edema Skin: normal color, warm/dry Neuro/Psych: alert, normal mood/affect, abnormal cerebellar tests, motor weakness (R hand with movement of fingers. ) ICD10 Worksheet Patient Problems: Problems Problem Status Onset Cerebral hemorrhage Acute Palpitations Acute Paroxysmal tachycardia Acute Saddle pulmonary embolus Acute
[2016-07-21] MEDS ORDERED: WARFARIN SODIUM 5 MG TAB PO SCH (16:00)
[2016-07-21] MEDS: traZODone 50 MG TAB PO SCH (21:16)
[2016-07-22] MEDS: DORZOLAMIDE 2% OPTH DROPS LEFTEYE SCH ×2 (09:27→20:44)
[2016-07-22] MEDS: LISINOPRIL 40 MG TAB PO SCH (09:27)
[2016-07-22] MEDS: MULTIVITAMINS 1 EACH TAB PO SCH (09:27)
[2016-07-22] MEDS: ENOXAPARIN 60 MG/0.6 ML SYR SC SCH (09:29)
[2016-07-22 10:30] LABS: INR 2.04 (0.83-1.16); PROTIME(PATIENT) 23.2 SEC (12.0-15.0)
--- NOTE | 2016-07-22 11:08 | SOAPPROG ---
SOAP Progress Note Assessment/Plan: Assessment/Plan: 07/22/2016- doing well, INR 2.04 (borderline), technically therapeutic x 2 labs, plan to dc enoxaparin tomorrow if still 2-3. No bleeding, no new neurological changes to suggest intracranial bleeding. Participating well in therapies, mood good. 66-year-old male with a dense right-sided hemiparesis starting on 06/16/2016, resulting from a large left parietal lobe intraparenchymal hemorrhage, now complicated by a saddle pulmonary embolus diagnosed on 07/13/2016, returned to inpatient rehabilitation 07/17/16 with impairments in mobility and self-care, with the goal to discharge home in [place] with his and family. * Status post left-sided parietal intraparenchymal hemorrhage with right-sided hemiparesis, cognitive impairments: Initial FIM 54 on 07/02/16; improved to 65 on 07/09/16; FIM 78 on 07/21/16. Walked 30' min A quad cane. Squat-pivot T'mynor SBA. Motor planning deficit and decreased new learning. UB dressing SBA, LB min A. Toileting CGA to min A. Continue PT and OT to optimize mobility and ADLs. Orthotics consult for custom-molded right-sided AFO, with an uncut Tamarik hinge. * Cognitive issues s/p CVA. Mild to mod decreased SOP & memory, decreased new learning. 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 * Deep vein thrombosis/pulmonary embolus: He will need ongoing anticoagulation for 3-6 months, warfarin, with a goal INR of 2-3. He is bridging on Lovenox until he is therapeutic for 1-2 days. He also has an IVC filter in place, and that will need to be removed on 08/14/2016 (to coordinate removal in [place] with ). * Hypertension: Continue treatment with lisinopril 40 mg daily, and keep stool soft to prevent Valsalva. If additional antihypertensive needed, would start norvasc 2.5 mg daily. * Glaucoma: Continue dorzolamide. * Insomnia: Continue trazodone q.h.s. p.r.n. for insomnia. * Anemia: Monitor for improvement. Clinically, no need to monitor lab serially. * Prophylaxis: He is currently on treatment dose for Lovenox bridging to warfarin. Plan for discharge 08/04/16. 07/22/16 11:03 Subjective: cc: anticoag monitoring and neurological status No acute events overnight. INR 2.04 today, working well with therapies. No bleeding, no new numbness, tingling, or weakness. Now has some movement in proximal muscles of the right arm as well as the previously observed hand movement. Mood good. Objective: Vital Signs Temp Pulse Resp BP Pulse Ox 36.5 C 68 16 136/90 H 95 07/22/16 06:10 07/22/16 06:10 07/22/16 06:10 07/22/16 06:10 07/22/16 06:10 07/21/16 07/22/16 07/23/16 05:59 05:59 05:59 Intake Total 836 810 250 Output Total 1375 1650 Balance -539 -840 250 PT 23.2 SEC (12.0-15.0) H 07/22/16 09:35 INR 2.04 (0.83-1.16) H 07/22/16 09:35 Physical Exam - Physical Exam General Appearance: alert, no apparent distress, other (in PT) EENT: No scleral icterus (R), No scleral icterus (L) Respiratory: lungs clear, normal breath sounds, No respiratory distress, No accessory muscle use Cardiac/Chest: normal peripheral pulses, regular rate, rhythm, No edema Abdomen: normal bowel sounds, non-tender, soft Skin: normal color, warm/dry Extremities: non-tender, No swelling Neuro/Psych: alert, normal mood/affect, motor weakness (Now has 1/5 strength in shoulder adduction, triceps ) ICD10 Worksheet Patient Problems: Problems Problem Status Onset Cerebral hemorrhage Acute Palpitations Acute Paroxysmal tachycardia Acute Saddle pulmonary embolus Acute
[2016-07-22] MEDS ORDERED: WARFARIN SODIUM 7.5 MG TAB PO ONE (16:00)
[2016-07-22] MEDS: traZODone 50 MG TAB PO SCH (20:44)
[2016-07-23 08:07] LABS: INR 2.55 (0.83-1.16); PROTIME(PATIENT) 27.7 SEC (12.0-15.0)
[2016-07-23] MEDS: DORZOLAMIDE 2% OPTH DROPS LEFTEYE SCH ×2 (09:34→20:56)
[2016-07-23] MEDS: LISINOPRIL 40 MG TAB PO SCH (09:34)
[2016-07-23] MEDS: MULTIVITAMINS 1 EACH TAB PO SCH (09:34)
[2016-07-23] MEDS ORDERED: WARFARIN SODIUM 5 MG TAB PO ONE (16:00)
--- NOTE | 2016-07-23 16:21 | SOAPPROG ---
SOAP Progress Note Assessment/Plan: Assessment: 66-year-old male with a dense right-sided hemiparesis starting on 06/16/2016, resulting from a large left parietal lobe intraparenchymal hemorrhage, now complicated by a saddle pulmonary embolus diagnosed on 07/13/2016, returned to inpatient rehabilitation 07/17/16 with impairments in mobility and self-care, with the goal to discharge home in [place] with his and family. * Status post left-sided parietal intraparenchymal hemorrhage with right-sided hemiparesis, cognitive impairments: Initial FIM 54 on 07/02/16; improved to 65 on 07/09/16; FIM 78 on 07/21/16. Walked 30' min A quad cane. Squat-pivot T'mynor SBA. Motor planning deficit and decreased new learning. UB dressing SBA, LB min A. Toileting CGA to min A. Continue PT and OT to optimize mobility and ADLs. Orthotics consult for custom-molded right-sided AFO, with an uncut Tamarik hinge. * Cognitive issues s/p CVA. Mild to mod decreased SOP & memory, decreased new learning. 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 * Deep vein thrombosis/pulmonary embolus: He will need ongoing anticoagulation for 3-6 months, warfarin, with a goal INR of 2-3. He also has an IVC filter in place, and that will need to be removed on 08/14/2016 (to coordinate removal in [place] with ). Warfarin management pre pharmacy. * Hypertension: Continue treatment with lisinopril 40 mg daily, and keep stool soft to prevent Valsalva. If additional antihypertensive needed, would start norvasc 2.5 mg daily. * Glaucoma: Continue dorzolamide. * Insomnia: Continue trazodone q.h.s. * Anemia: Monitor for improvement. Clinically, no need to monitor lab serially. * Prophylaxis: Continue warfarin. He and want to continue IPR as long as possible. Plan for discharge . 07/23/16 16:19 Subjective: No complaints, other than his usual impatience re speed of recovery. Reports he ambulating and did 3 stairs. Objective: Vital Signs Temp Pulse Resp BP Pulse Ox 36.5 C 74 17 138/84 H 96 07/23/16 06:44 07/23/16 06:44 07/23/16 06:44 07/23/16 06:44 07/23/16 06:44 07/22/16 07/23/16 07/24/16 05:59 05:59 05:59 Intake Total 810 1500 812 Output Total 1650 250 Balance -840 1250 812 PT 27.7 SEC (12.0-15.0) H 07/23/16 06:00 INR 2.55 (0.83-1.16) H 07/23/16 06:00 Physical Exam - Physical Exam General Appearance: WD/WN, alert, no apparent distress Respiratory: No respiratory distress, No accessory muscle use Skin: normal color, warm/dry Neuro/Psych: alert, normal mood/affect, oriented x 3, abnormal gait (With quad cane; PT advancing R leg and asisting to keep knee straight when weightbearing) , motor weakness (RUE and RLE) ICD10 Worksheet Patient Problems: Problems Problem Status Onset Cerebral hemorrhage Acute Palpitations Acute Paroxysmal tachycardia Acute Saddle pulmonary embolus Acute
[2016-07-23] MEDS: traZODone 50 MG TAB PO SCH (20:54)
[2016-07-24] MEDS: LISINOPRIL 40 MG TAB PO SCH (07:20)
[2016-07-24] MEDS: MULTIVITAMINS 1 EACH TAB PO SCH (07:20)
[2016-07-24] MEDS: DORZOLAMIDE 2% OPTH DROPS LEFTEYE SCH ×2 (07:21→20:21)
[2016-07-24 07:38] LABS: INR 2.83 (0.83-1.16); PROTIME(PATIENT) 30.1 SEC (12.0-15.0)
[2016-07-24] MEDS ORDERED: WARFARIN SODIUM 5 MG TAB PO ONE (16:00)
--- NOTE | 2016-07-24 16:37 | SOAPPROG ---
SOAP Progress Note Assessment/Plan: 66-year-old male with a dense right-sided hemiparesis starting on 06/16/2016, resulting from a large left parietal lobe intraparenchymal hemorrhage, now complicated by a saddle pulmonary embolus diagnosed on 07/13/2016, returned to inpatient rehabilitation 07/17/16 with impairments in mobility and self-care, with the goal to discharge home in [place] with his and family. * Status post left-sided parietal intraparenchymal hemorrhage with right-sided hemiparesis, cognitive impairments: Initial FIM 54 on 07/02/16; improved to 65 on 07/09/16; FIM 78 on 07/21/16. Walked 30' min A quad cane. Squat-pivot T'mynor SBA. Motor planning deficit and decreased new learning. UB dressing SBA, LB min A. Toileting CGA to min A. Continue PT and OT to optimize mobility and ADLs. Orthotics consult for custom-molded right-sided AFO, with an uncut Tamarik hinge. * Cognitive issues s/p CVA. Mild to mod decreased SOP & memory, decreased new learning. Continue SUBGRADE TESTER. * Deep vein thrombosis/pulmonary embolus: He will need ongoing anticoagulation for 3-6 months, warfarin, with a goal INR of 2-3. He also has an IVC filter in place, and that will need to be removed on 08/14/2016 (to coordinate removal in [place] with ). Warfarin management pre pharmacy. * Hypertension: Continue treatment with lisinopril 40 mg daily, and keep stool soft to prevent Valsalva. If additional antihypertensive needed, would start norvasc 2.5 mg daily. * Glaucoma: Continue dorzolamide. * Insomnia: Continue trazodone q.h.s. * Anemia: Monitor for improvement. Clinically, no need to monitor lab serially. * Prophylaxis: Continue warfarin. He and want to continue IPR as long as possible. Plan for discharge . Subjective: No events. No complaints. Walked 200+110' in PT today. Denies pain. Objective: Vital Signs Temp Pulse Resp BP Pulse Ox 36.4 C 75 16 126/100 H 96 07/24/16 06:45 07/24/16 06:45 07/24/16 06:45 07/24/16 06:45 07/24/16 06:45 07/23/16 07/24/16 07/25/16 05:59 05:59 05:59 Intake Total 1500 1087 840 Output Total 250 700 400 Balance 1250 387 440 PT 30.1 SEC (12.0-15.0) H 07/24/16 06:10 INR 2.83 (0.83-1.16) H 07/24/16 06:10 - Pending Discharge Pending Discharge Within 24 Hours: No Pending Discharge Within 48 Hours: No Physical Exam - Physical Exam General Appearance: alert, no apparent distress Neck: full range of motion, supple Respiratory: lungs clear, normal breath sounds Cardiac/Chest: regular rate, rhythm Abdomen: non-tender, soft Skin: warm/dry Neuro/Psych: alert, normal mood/affect, oriented x 3, motor weakness (Right jamie ) ICD10 Worksheet Patient Problems: Problems Problem Status Onset Cerebral hemorrhage Acute Palpitations Acute Paroxysmal tachycardia Acute Saddle pulmonary embolus Acute
[2016-07-24] MEDS: traZODone 50 MG TAB PO SCH (20:19)
[2016-07-25] MEDS: LISINOPRIL 40 MG TAB PO SCH (08:25)
[2016-07-25] MEDS: MULTIVITAMINS 1 EACH TAB PO SCH (08:25)
[2016-07-25] MEDS: DORZOLAMIDE 2% OPTH DROPS LEFTEYE SCH ×2 (08:26→21:09)
[2016-07-25 08:28] LABS: INR 2.99 (0.83-1.16); PROTIME(PATIENT) 31.5 SEC (12.0-15.0)
[2016-07-25] MEDS ORDERED: WARFARIN SODIUM 2.5 MG TAB PO ONE (16:00)
[2016-07-25] MEDS: traZODone 50 MG TAB PO SCH (21:07)
--- NOTE | 2016-07-25 22:58 | SOAPPROG ---
SOAP Progress Note Assessment/Plan: 66-year-old male with a dense right-sided hemiparesis starting on 06/16/2016, resulting from a large left parietal lobe intraparenchymal hemorrhage, now complicated by a saddle pulmonary embolus diagnosed on 07/13/2016, returned to inpatient rehabilitation 07/17/16 with impairments in mobility and self-care, with the goal to discharge home in [place] with his and family. * Status post left-sided parietal intraparenchymal hemorrhage with right-sided hemiparesis, cognitive impairments: Initial FIM 54 on 07/02/16; improved to 65 on 07/09/16; FIM 78 on 07/21/16. Walked 30' min A quad cane. Squat-pivot T'mynor SBA. Motor planning deficit and decreased new learning. UB dressing SBA, LB min A. Toileting CGA to min A. Continue PT and OT to optimize mobility and ADLs. Orthotics consult for custom-molded right-sided AFO, with an uncut Tamarik hinge. * Cognitive issues s/p CVA. Mild to mod decreased SOP & memory, decreased new learning. 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 * Deep vein thrombosis/pulmonary embolus: He will need ongoing anticoagulation for 3-6 months, warfarin, with a goal INR of 2-3. He also has an IVC filter in place, and that will need to be removed on 08/14/2016 (to coordinate removal in [place] with ). Warfarin management pre pharmacy. * Hypertension: Continue treatment with lisinopril 40 mg daily, and keep stool soft to prevent Valsalva. If additional antihypertensive needed, would start norvasc 2.5 mg daily. * Glaucoma: Continue dorzolamide. * Insomnia: Continue trazodone q.h.s. * Anemia: Monitor for improvement. Clinically, no need to monitor lab serially. * Prophylaxis: Continue warfarin. He and want to continue IPR as long as possible. Plan for discharge . Subjective: no events. no complaints this a.m. Denies pain or chills. Objective: Vital Signs Temp Pulse Resp BP Pulse Ox 36.4 C 77 18 143/81 H 95 07/25/16 19:25 07/25/16 19:25 07/25/16 19:25 07/25/16 19:25 07/25/16 19:25 07/24/16 07/25/16 07/26/16 05:59 05:59 05:59 Intake Total 1087 1326 708 Output Total 700 950 Balance 387 376 708 PT 31.5 SEC (12.0-15.0) H 07/25/16 06:20 INR 2.99 (0.83-1.16) H 07/25/16 06:20 - Pending Discharge Pending Discharge Within 24 Hours: No Pending Discharge Within 48 Hours: No Physical Exam - Physical Exam General Appearance: alert, no apparent distress Neck: supple Respiratory: lungs clear, normal breath sounds Cardiac/Chest: regular rate, rhythm Abdomen: non-tender, soft Skin: normal color, warm/dry Neuro/Psych: alert, normal mood/affect, oriented x 3, motor weakness (jamie), No cognition abnormalities, No speech abnormalities ICD10 Worksheet Patient Problems: Problems Problem Status Onset Cerebral hemorrhage Acute Palpitations Acute Paroxysmal tachycardia Acute Saddle pulmonary embolus Acute
[2016-07-26 07:58] LABS: INR 2.6 (0.83-1.16); PROTIME(PATIENT) 28.1 SEC (12.0-15.0)
[2016-07-26] MEDS: MULTIVITAMINS 1 EACH TAB PO SCH (09:39)
[2016-07-26] MEDS: LISINOPRIL 40 MG TAB PO SCH (09:39)
[2016-07-26] MEDS: DORZOLAMIDE 2% OPTH DROPS LEFTEYE SCH ×2 (09:39→21:35)
--- NOTE | 2016-07-26 14:02 | SOAPPROG ---
SOAP Progress Note Assessment/Plan: Assessment: 66-year-old male with a dense right-sided hemiparesis starting on 06/16/2016, resulting from a large left parietal lobe intraparenchymal hemorrhage, now complicated by a saddle pulmonary embolus diagnosed on 07/13/2016, returned to inpatient rehabilitation 07/17/16 with impairments in mobility and self-care, with goal to discharge to home in [place] with his and family. * Status post left-sided parietal intraparenchymal hemorrhage with right-sided hemiparesis, cognitive impairments: Initial FIM 54 on 07/02/16; improved to 65 on 07/09/16; FIM 78 on 07/21/16 and continues to improve. Walked 30' min A quad cane. Squat-pivot T'mynor SBA. Motor planning deficit and decreased new learning. UB dressing SBA, LB min A. Toileting CGA to min A. Continue PT and OT to optimize mobility and ADLs. Orthotics consult for custom-molded right- sided AFO, with an uncut Tamarik hinge. * Cognitive issues s/p CVA. Mild to mod decreased SOP & memory, decreased new learning. 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 * Deep vein thrombosis/pulmonary embolus: He will need ongoing anticoagulation for 3-6 months, warfarin, with a goal INR of 2-3. He also has an IVC filter in place, and that will need to be removed on 08/24/2016 (to coordinate removal in [place] with ). Warfarin management pre pharmacy. * Hypertension: Continue treatment with lisinopril 40 mg daily, and keep stool soft to prevent Valsalva. If additional antihypertensive needed, would start norvasc 2.5 mg daily. * Glaucoma: Continue dorzolamide. * Insomnia: Continue trazodone q.h.s. * Anemia: Monitor for improvement. Clinically, no need to monitor lab serially. * Prophylaxis: Continue warfarin. He and want to continue IPR as long as possible. Plan for discharge . 07/26/16 14:00 Subjective: No complaints. Walking further with PT. Notes R foot drag. Objective: Vital Signs Temp Pulse Resp BP Pulse Ox 36.8 C 70 16 125/86 H 95 07/26/16 06:34 07/26/16 06:34 07/26/16 06:34 07/26/16 06:34 07/26/16 06:34 07/25/16 07/26/16 07/27/16 05:59 05:59 05:59 Intake Total 1326 1058 1340 Output Total 950 900 450 Balance 376 158 890 PT 28.1 SEC (12.0-15.0) H 07/26/16 06:40 INR 2.60 (0.83-1.16) H 07/26/16 06:40 Physical Exam - Physical Exam General Appearance: WD/WN, alert, no apparent distress, thin Respiratory: No respiratory distress, No accessory muscle use Skin: normal color, warm/dry Neuro/Psych: alert, normal mood/affect, oriented x 3, motor weakness (RUE and RLE) ICD10 Worksheet Patient Problems: Problems Problem Status Onset Cerebral hemorrhage Acute Palpitations Acute Paroxysmal tachycardia Acute Saddle pulmonary embolus Acute
[2016-07-26] MEDS ORDERED: WARFARIN SODIUM 5 MG TAB PO SCH (16:00)
[2016-07-26] MEDS: traZODone 50 MG TAB PO SCH (21:34)
[2016-07-27 08:11] LABS: INR 2.38 (0.83-1.16); PROTIME(PATIENT) 26.2 SEC (12.0-15.0)
[2016-07-27] MEDS: LISINOPRIL 40 MG TAB PO SCH (08:26)
[2016-07-27] MEDS: MULTIVITAMINS 1 EACH TAB PO SCH (08:26)
[2016-07-27] MEDS: DORZOLAMIDE 2% OPTH DROPS LEFTEYE SCH ×2 (09:59→21:00)
--- NOTE | 2016-07-27 13:46 | SOAPPROG ---
SOAP Progress Note Assessment/Plan: Assessment: 66-year-old male with a dense right-sided hemiparesis starting on 06/16/2016, resulting from a large left parietal lobe intraparenchymal hemorrhage, now complicated by a saddle pulmonary embolus diagnosed on 07/13/2016, returned to inpatient rehabilitation 07/17/16 with impairments in mobility and self-care, with goal to discharge to home in [place] with his and family. * Status post left-sided parietal intraparenchymal hemorrhage with right-sided hemiparesis, cognitive impairments: Initial FIM 54 on 07/02/16; improved to 65 on 07/09/16; FIM 78 on 07/21/16 and continues to improve; showing R hand pinch blood or blood bank technician and pronation 07/27/16. Walked 30' min A quad cane. Squat-pivot T'mynor SBA. Motor planning deficit and decreased new learning. UB dressing SBA, LB min A. Toileting CGA to min A. Continue PT and OT to optimize mobility and ADLs. Orthotics consult for custom-molded right-sided AFO, with an uncut Tamarik hinge. * Cognitive issues s/p CVA. Mild to mod decreased SOP & memory, decreased new learning. 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 * Deep vein thrombosis/pulmonary embolus: He will need ongoing anticoagulation for 3-6 months, warfarin, with a goal INR of 2-3. He also has an IVC filter in place, and that will need to be removed on 08/24/2016 (to coordinate removal in [place] with ). Warfarin management pre pharmacy. * Hypertension: Continue treatment with lisinopril 40 mg daily, and keep stool soft to prevent Valsalva. If additional antihypertensive needed, would start norvasc 2.5 mg daily. * Glaucoma: Continue dorzolamide. * Insomnia: Continue trazodone q.h.s. * Anemia: Monitor for improvement. Clinically, no need to monitor lab serially. * Prophylaxis: Continue warfarin. He and want to continue IPR as long as possible. Plan for discharge . 07/27/16 13:45 Subjective: No complaints. Working with OT putting pegs in pegboard with R hand, standing at table. Sleeping well, not in pain, no f/c. Objective: Vital Signs Temp Pulse Resp BP Pulse Ox 36.6 C 71 16 133/85 H 96 07/27/16 07:22 07/27/16 07:22 07/27/16 07:22 07/27/16 07:22 07/27/16 07:22 07/26/16 07/27/16 07/28/16 05:59 05:59 05:59 Intake Total 1058 1740 720 Output Total 900 2100 Balance 158 -360 720 PT 26.2 SEC (12.0-15.0) H 07/27/16 07:00 INR 2.38 (0.83-1.16) H 07/27/16 07:00 Physical Exam - Physical Exam General Appearance: WD/WN, alert, no apparent distress, thin Respiratory: No respiratory distress, No accessory muscle use Skin: normal color, warm/dry Neuro/Psych: alert, normal mood/affect, oriented x 3, motor weakness (LUE and LLE. ABle to put pegs in pegboard with considerable assistance of OT; showing pinch blood or blood bank technician and pronation of forearm.) ICD10 Worksheet Patient Problems: Problems Problem Status Onset Cerebral hemorrhage Acute Palpitations Acute Paroxysmal tachycardia Acute Saddle pulmonary embolus Acute
[2016-07-27] MEDS ORDERED: WARFARIN SODIUM 5 MG TAB PO ONE (16:00)
[2016-07-27] MEDS: traZODone 50 MG TAB PO SCH (20:59)
[2016-07-28 07:57] LABS: INR 2.6 (0.83-1.16); PROTIME(PATIENT) 28.1 SEC (12.0-15.0)
[2016-07-28] MEDS: LISINOPRIL 40 MG TAB PO SCH (08:43)
[2016-07-28] MEDS: MULTIVITAMINS 1 EACH TAB PO SCH (08:43)
[2016-07-28] MEDS: DORZOLAMIDE 2% OPTH DROPS LEFTEYE SCH ×2 (09:25→20:59)
--- NOTE | 2016-07-28 09:50 | SOAPPROG ---
SOAP Progress Note Assessment/Plan: Assessment: 66-year-old male with a dense right-sided hemiparesis starting on 06/16/2016, resulting from a large left parietal lobe intraparenchymal hemorrhage, now complicated by a saddle pulmonary embolus diagnosed on 07/13/2016, returned to inpatient rehabilitation 07/17/16 with impairments in mobility and self-care, with goal to discharge to home in [place] with his and family. * Status post left-sided parietal intraparenchymal hemorrhage with right-sided hemiparesis, cognitive impairments: Initial FIM 54 on 07/02/16; improved to 65 on 07/09/16; FIM 78 on 07/21/1792 on 07/28/16. Advance to I in room starting & encourage to be involved in assisting. Ambulated > 50' quad cane or FWW min A. DUp and down 6 stairs 1 rail. Shower t'mynor CGA, o/w I for ADLs. Showing R hand pinch gun club manager and pronation 07/27/16. Continue PT and OT to optimize mobility and ADLs. Orthotics consult for custom-molded right-sided AFO , with an uncut Tamarik hinge. * Cognitive issues s/p CVA. 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 * Deep vein thrombosis/pulmonary embolus: He will need ongoing anticoagulation for 3-6 months, warfarin, with a goal INR of 2-3. He also has an IVC filter in place, and that will need to be removed on 08/24/2016 (to coordinate removal in [place] with ). Warfarin management pre pharmacy. * Hypertension: Continue treatment with lisinopril 40 mg daily, and keep stool soft to prevent Valsalva. * Nocturia X 5 overnight 07/27 - 07/28/16. Not noted previously. Normal UA X 2. Continue to monitor. * Glaucoma: Continue dorzolamide. * Insomnia: Continue trazodone q.h.s. * Anemia: Monitor for improvement. Clinically, no need to monitor lab serially. * Prophylaxis: Continue warfarin. Attended staffing, 15 min. D/W case mgmt, nursing, overlocker, PT, OT, CRIME PREVENTION WORKER. Continue plan for discharge home to [place] 08/04/16. Will have outpatient PT, OT, CRIME PREVENTION WORKER. 05/03/17 12:49 Subjective: No complaints. Notes continuing return of movement to R hand though no biceps yet. Has custom AFO since yesterday and hopes it will help avoid R toe drag when he walks. Objective: Vital Signs Temp Pulse Resp BP Pulse Ox 36.6 C 67 15 121/88 H 94 07/28/16 06:55 07/28/16 06:55 07/28/16 06:55 07/28/16 08:43 07/28/16 06:55 07/27/16 07/28/16 07/29/16 05:59 05:59 05:59 Intake Total 1740 920 720 Output Total 2100 950 Balance -360 -30 720 PT 28.1 SEC (12.0-15.0) H 07/28/16 07:00 INR 2.60 (0.83-1.16) H 07/28/16 07:00 - Time Spent With Patient Time Spent With Patient: Greater than 35 minutes floor time today, including more than 50% of time in coordination of care during staffing meeting, and counseling patient. Physical Exam - Physical Exam General Appearance: WD/WN, alert, no apparent distress, thin Respiratory: normal breath sounds, No crackles, No rhonchi, No wheezing Cardiac/Chest: regular rate, rhythm, No edema, No diastolic murmur, No systolic murmur Skin: normal color, warm/dry Neuro/Psych: alert, normal mood/affect, oriented x 3, motor weakness (has finger flexion/extension and pronation/supination R hand) ICD10 Worksheet Patient Problems: Problems Problem Status Onset Cerebral hemorrhage Acute Palpitations Acute Paroxysmal tachycardia Acute Saddle pulmonary embolus Acute
[2016-07-28] MEDS: WARFARIN SODIUM 5 MG TAB PO SCH (16:19)
[2016-07-28] MEDS: traZODone 50 MG TAB PO SCH (20:57)
[2016-07-29] MEDS: LISINOPRIL 40 MG TAB PO SCH (09:09)
[2016-07-29] MEDS: DORZOLAMIDE 2% OPTH DROPS LEFTEYE SCH ×2 (09:09→20:48)
[2016-07-29] MEDS: MULTIVITAMINS 1 EACH TAB PO SCH (09:09)
--- NOTE | 2016-07-29 11:26 | SOAPPROG ---
[facility] Progress Note Assessment/Plan: Assessment/Plan: 66-year-old male with a dense right-sided hemiparesis starting on 06/16/2016, resulting from a large left parietal lobe intraparenchymal hemorrhage, now complicated by a saddle pulmonary embolus diagnosed on 07/13/2016, returned to inpatient rehabilitation 07/17/16 with impairments in mobility and self-care, with goal to discharge to home in [place] with his and family. 07/29/2016- Doing well, I spent 25 minutes on the floor in patient care, the majority was spent in the counseling of the patient regarding prognosis, motor and functional recovery, and discharge coordination. Discussed anticoagulation plan with pharmacy, will recheck INR on tuesday, continue 5 mg qhs for now, stable in range of 2-3. No bleeding. AFO delivered and fitting well, aiding in ambulation. * Status post left-sided parietal intraparenchymal hemorrhage with right-sided hemiparesis, cognitive impairments: Initial FIM 54 on 07/02/16; improved to 65 on 07/09/16; FIM 78 on 07/21/1792 on 07/28/16. Advance to I in room starting & encourage to be involved in assisting. Ambulated > 50' quad cane or FWW min A. DUp and down 6 stairs 1 rail. Shower t'mynor CGA, o/w I for ADLs. Showing R hand pinch cellar packer and pronation 07/27/16. Continue PT and OT to optimize mobility and ADLs. AFO fits well, no issues. * Cognitive issues s/p CVA. Much improved; [employer] LEVERMAN reducing to 30 min/day. * Deep vein thrombosis/pulmonary embolus: He will need ongoing anticoagulation for 3-6 months, warfarin, with a goal INR of 2-3. He also has an IVC filter in place, and that will need to be removed on 08/24/2016 (to coordinate removal in [place] with ). Warfarin management pre pharmacy. * Hypertension: Continue treatment with lisinopril 40 mg daily, and keep stool soft to prevent Valsalva. * Nocturia X 5 overnight 07/27 - 07/28/16. Not noted previously. Normal UA X 2. Continue to monitor. * Glaucoma: Continue dorzolamide. * Insomnia: Continue trazodone q.h.s. * Anemia: Monitor for improvement. Clinically, no need to monitor lab serially. * Prophylaxis: Continue warfarin. Continue plan for discharge home to [place] 08/04/16. Will have outpatient PT, OT, [employer] LEVERMAN. 07/28/16 12:49 07/29/16 11:21 Subjective: CC: functional recovery Pt doing well, making gains in strength, walking with a trekking pole in therapy , more comfortable with a quad cane or walker. Uses MWC for community distances for now, discussed that I anticipate that he will not need WC on dc, TBD. AFO fitting well, helping with gait. Counseled that AFO would not inhibit recovery, but would aid in safety and increase walking speed. D/W pharmacy, INR 2.6 yest, stable. Objective: Vital Signs Temp Pulse Resp BP Pulse Ox 36.7 C 73 16 151/91 H 95 07/29/16 08:00 07/29/16 08:00 07/29/16 08:00 07/29/16 09:09 07/29/16 08:00 07/28/16 07/29/16 07/30/16 05:59 05:59 05:59 Intake Total 920 1456 660 Output Total 950 1000 Balance -30 456 660 PT 28.1 SEC (12.0-15.0) H 07/28/16 07:00 INR 2.60 (0.83-1.16) H 07/28/16 07:00 Physical Exam - Physical Exam General Appearance: alert, no apparent distress EENT: No scleral icterus (R), No scleral icterus (L) Respiratory: No respiratory distress, No accessory muscle use Skin: normal color, warm/dry Extremities: No swelling Neuro/Psych: alert, normal mood/affect, motor weakness (continued right hemiparesis, right hand with 3/5 hand strength, proximal muscles still <3/5 but not quantified further today. ) ICD10 Worksheet Patient Problems: Problems Problem Status Onset Cerebral hemorrhage Acute Palpitations Acute Paroxysmal tachycardia Acute Saddle pulmonary embolus Acute
[2016-07-29] MEDS: WARFARIN SODIUM 5 MG TAB PO SCH (16:36)
[2016-07-29] MEDS: traZODone 50 MG TAB PO SCH (20:48)
[2016-07-30] MEDS: DORZOLAMIDE 2% OPTH DROPS LEFTEYE SCH ×2 (09:02→20:56)
[2016-07-30] MEDS: LISINOPRIL 40 MG TAB PO SCH (09:03)
[2016-07-30] MEDS: MULTIVITAMINS 1 EACH TAB PO SCH (09:03)
--- NOTE | 2016-07-30 14:22 | SOAPPROG ---
[facility] Progress Note Assessment/Plan: Assessment: 66-year-old male with a dense right-sided hemiparesis starting on 06/16/2016, resulting from a large left parietal lobe intraparenchymal hemorrhage, now complicated by a saddle pulmonary embolus diagnosed on 07/13/2016, returned to inpatient rehabilitation 07/17/16 with impairments in mobility and self-care, with goal to discharge to home in [place] with his and family. * Status post left-sided parietal intraparenchymal hemorrhage with right-sided hemiparesis, cognitive impairments: Initial FIM 54 on 07/02/16; improved to 65 on 07/09/16; FIM 78 on 07/21/1792 on 07/28/16. Advance to I in room starting & encourage to be involved in assisting. Ambulated > 50' quad cane or FWW min A. Up and down 18 stairs 1 rail. Shower t'mynor CGA, o/w I for ADLs. Showing R hand pinch coating and embossing unit operator and pronation 07/27/16. Continue PT and OT to optimize mobility and ADLs. Using custom-molded right-sided AFO, with an uncut Tamarik hinge. * Cognitive issues s/p CVA. Much improved; MILLER HEAD WET PROCESS reducing to 30 min/day, working on higher level cognitive functions. * Deep vein thrombosis/pulmonary embolus: He will need ongoing anticoagulation for 3-6 months, warfarin, with a goal INR of 2-3. He also has an IVC filter in place, and that will need to be removed after 2 to 6 months. Warfarin management pre pharmacy. * Hypertension: Continue treatment with lisinopril 40 mg daily, and keep stool soft to prevent Valsalva. * Nocturia X 5 overnight 07/27 - 07/28/16. Not noted previously. Normal UA X 2. Continue to monitor. * Glaucoma: Continue dorzolamide. * Insomnia: Continue trazodone q.h.s. * Anemia: Monitor for improvement. Clinically, no need to monitor lab serially. * Prophylaxis: Continue warfarin. Attended family meeting, 30 min, patient and present. D/W case mgmt, nursing, computing systems mechanic, PT, OT, MILLER HEAD WET PROCESS. Continue plan for discharge home to [place] 08/04/16 by air medical transport. Will have outpatient PT, OT, MILLER HEAD WET PROCESS. 07/30/16 14:19 Subjective: No complaints. Not in pain, no f/c, cough/dyspnea. Objective: Vital Signs Temp Pulse Resp BP Pulse Ox 37.0 C 71 16 135/88 H 94 07/30/16 08:00 07/30/16 08:00 07/30/16 08:00 07/30/16 08:00 07/30/16 08:00 07/29/16 07/30/16 07/31/16 05:59 05:59 05:59 Intake Total 1456 1636 Output Total 1000 900 Balance 456 736 PT 28.1 SEC (12.0-15.0) H 07/28/16 07:00 INR 2.60 (0.83-1.16) H 07/28/16 07:00 - Time Spent With Patient Time Spent With Patient: Greater than 35 minutes floor time today, including more than 50% of time in coordination of care and counseling during family meeting. Physical Exam - Physical Exam General Appearance: WD/WN, alert, no apparent distress, thin Respiratory: No respiratory distress, No accessory muscle use Skin: normal color, warm/dry Neuro/Psych: alert, normal mood/affect, oriented x 3, abnormal gait (with FWW and AFO; step-through pattern, slow, occ catches R foot on floor.), motor weakness (RUE) ICD10 Worksheet Patient Problems: Problems Problem Status Onset Cerebral hemorrhage Acute Palpitations Acute Paroxysmal tachycardia Acute Saddle pulmonary embolus Acute
[2016-07-30] MEDS: WARFARIN SODIUM 5 MG TAB PO SCH (16:26)
[2016-07-30] MEDS: traZODone 50 MG TAB PO SCH (20:49)
[2016-07-31] MEDS: MULTIVITAMINS 1 EACH TAB PO SCH (09:29)
[2016-07-31] MEDS: LISINOPRIL 40 MG TAB PO SCH (09:30)
[2016-07-31] MEDS: DORZOLAMIDE 2% OPTH DROPS LEFTEYE SCH ×2 (09:32→20:56)
--- NOTE | 2016-07-31 11:55 | SOAPPROG ---
[facility] Progress Note Assessment/Plan: Assessment: 66-year-old male with a dense right-sided hemiparesis starting on 06/16/2016, resulting from a large left parietal lobe intraparenchymal hemorrhage, now complicated by a saddle pulmonary embolus diagnosed on 07/13/2016, returned to inpatient rehabilitation 07/17/16 with impairments in mobility and self-care, with goal to discharge to home in [place] with his and family. * Status post left-sided parietal intraparenchymal hemorrhage with right-sided hemiparesis, cognitive impairments: Initial FIM 54 on 07/02/16; improved to 65 on 07/09/16; FIM 78 on 07/21/1792 on 07/28/16. Advance to I in room starting & encourage to be involved in assisting. Ambulated > 50' quad cane or FWW min A. Up and down 18 stairs 1 rail. Shower t'mynor CGA, o/w I for ADLs. Showing R hand pinch health physics technician and pronation 07/27/16. Continue PT and OT to optimize mobility and ADLs. Using custom-molded right-sided AFO, with an uncut Tamarik hinge. * Cognitive issues s/p CVA. Much improved; PASSENGER AGENT reducing to 30 min/day, working on higher level cognitive functions. * Deep vein thrombosis/pulmonary embolus: He will need ongoing anticoagulation for 3-6 months, warfarin, with a goal INR of 2-3. He also has an IVC filter in place, and that will need to be removed after 2 to 6 months. Warfarin management pre pharmacy. PT THIS AM PENDING * Hypertension: BP THIS AM 122/80. Continue treatment with lisinopril 40 mg daily, and keep stool soft to prevent Valsalva. * Nocturia X 5 overnight 07/27 - 07/28/16. Not noted previously. Normal UA X 2. Continue to monitor. * Glaucoma: Continue dorzolamide. * Insomnia: Continue trazodone q.h.s. * Anemia: Monitor for improvement. Clinically, no need to monitor lab serially. * Prophylaxis: Continue warfarin. WARFARIN PER RX Plan: 07/31/16 11:53 Subjective: NO C/O THIUS AM. No problems reported by nursing staff. Objective: Vital Signs Temp Pulse Resp BP Pulse Ox 36.4 C 76 16 122/80 H 96 0506/17 08:00 07/31/16 08:00 07/31/16 08:00 07/31/16 09:30 07/31/16 08:00 07/30/16 07/31/16 08/01/16 05:59 05:59 05:59 Intake Total 1636 1340 660 Output Total 900 875 Balance 736 1340 -215 PT 28.1 SEC (12.0-15.0) H 07/28/16 07:00 INR 2.60 (0.83-1.16) H 07/28/16 07:00 Physical Exam - Physical Exam General Appearance: WD/WN, alert, no apparent distress Respiratory: chest non-tender, normal breath sounds Cardiac/Chest: No edema, No JVD Abdomen: normal bowel sounds, non-tender, soft Skin: normal color, warm/dry Neuro/Psych: alert, normal mood/affect, oriented x 3 (right hemiparesis UE >> LE. 2/5 WRIST EXTENSORS, 3+/5 HF, 3-/5 QUADS), motor weakness ICD10 Worksheet Patient Problems: Problems Problem Status Onset Cerebral hemorrhage Acute Palpitations Acute Paroxysmal tachycardia Acute Saddle pulmonary embolus Acute
[2016-07-31] MEDS: WARFARIN SODIUM 5 MG TAB PO SCH (16:17)
[2016-07-31] MEDS: traZODone 50 MG TAB PO SCH (20:53)
[2016-08-01] MEDS: LISINOPRIL 40 MG TAB PO SCH (08:26)
[2016-08-01] MEDS: MULTIVITAMINS 1 EACH TAB PO SCH (08:26)
[2016-08-01] MEDS: DORZOLAMIDE 2% OPTH DROPS LEFTEYE SCH ×2 (08:27→21:07)
--- NOTE | 2016-08-01 10:38 | SOAPPROG ---
[facility] Progress Note Assessment/Plan: Assessment: 66-year-old male with a dense right-sided hemiparesis starting on 06/16/2016, resulting from a large left parietal lobe intraparenchymal hemorrhage, now complicated by a saddle pulmonary embolus diagnosed on 07/13/2016, returned to inpatient rehabilitation 07/17/16 with impairments in mobility and self-care, with goal to discharge to home in [place] with his and family. * Status post left-sided parietal intraparenchymal hemorrhage with right-sided hemiparesis, cognitive impairments: D/W OT THAT PATIENT WOULD BENEFIT FROM COCK- UP SPLINT WITH OUTRIGGERS. ESTIM AND BIOFEEDBACK TO IMPROVE RIGHT WRIST EXTENSOR COMPARTMENT STRENGTH. Initial FIM 54 on 07/02/16; improved to 65 on ; FIM 78 on 07/21/1792 on 07/28/16. Advance to I in room starting 07/28/16 & encourage to be involved in assisting. Ambulated > 50' quad cane or FWW min A. Up and down 18 stairs 1 rail. Shower t'mynor CGA, o/w I for ADLs. Showing R hand pinch guest relations receptionist and pronation 07/27/16. Continue PT and OT to optimize mobility and ADLs. Using custom-molded right-sided AFO, with an uncut Tamarik hinge. * Cognitive issues s/p CVA. 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 * Deep vein thrombosis/pulmonary embolus: He will need ongoing anticoagulation for 3-6 months, warfarin, with a goal INR of 2-3. He also has an IVC filter in place, and that will need to be removed after 2 to 6 months. Warfarin management pre pharmacy. PT THIS AM PENDING * Hypertension: BP THIS AM 122/80. Continue treatment with lisinopril 40 mg daily, and keep stool soft to prevent Valsalva. * Nocturia X 5 overnight 07/27 - 07/28/16. Not noted previously. Normal UA X 2. Continue to monitor. * Glaucoma: Continue dorzolamide. * Insomnia: Continue trazodone q.h.s. * Anemia: Monitor for improvement. Clinically, no need to monitor lab serially. * Prophylaxis: Continue warfarin. WARFARIN PER RX Plan: 07/31/16 11:53 08/01/16 10:41 Subjective: No c?o per patient or nursing staff. Objective: Vital Signs Temp Pulse Resp BP Pulse Ox 36.6 C 72 16 125/85 H 94 08/01/16 07:41 08/01/16 07:41 08/01/16 07:41 08/01/16 08:26 08/01/16 07:41 07/31/16 08/01/16 08/02/16 05:59 05:59 05:59 Intake Total 1340 1390 350 Output Total 1625 Balance 1340 -235 350 PT 28.1 SEC (12.0-15.0) H 07/28/16 07:00 INR 2.60 (0.83-1.16) H 07/28/16 07:00 Physical Exam - Physical Exam General Appearance: WD/WN, alert, no apparent distress Respiratory: chest non-tender, lungs clear, normal breath sounds Cardiac/Chest: No edema Abdomen: normal bowel sounds, non-tender, soft Skin: normal color, warm/dry Neuro/Psych: motor weakness (RUE RLE HEMIPARESIS. No change from previous exam) , other ICD10 Worksheet Patient Problems: Problems Problem Status Onset Cerebral hemorrhage Acute Palpitations Acute Paroxysmal tachycardia Acute Saddle pulmonary embolus Acute
[2016-08-01] MEDS: WARFARIN SODIUM 5 MG TAB PO SCH (16:17)
[2016-08-01] MEDS: traZODone 50 MG TAB PO SCH (21:07)
[2016-08-02 08:00] LABS: INR 2.25 (0.83-1.16); PROTIME(PATIENT) 25.1 SEC (12.0-15.0)
[2016-08-02] MEDS: MULTIVITAMINS 1 EACH TAB PO SCH (08:45)
[2016-08-02] MEDS: LISINOPRIL 40 MG TAB PO SCH (08:45)
[2016-08-02] MEDS: DORZOLAMIDE 2% OPTH DROPS LEFTEYE SCH ×2 (08:52→21:16)
--- NOTE | 2016-08-02 13:24 | SOAPPROG ---
[facility] Progress Note Assessment/Plan: Assessment: 66-year-old male with a dense right-sided hemiparesis starting on 06/16/2016, resulting from a large left parietal lobe intraparenchymal hemorrhage, now complicated by a saddle pulmonary embolus diagnosed on 07/13/2016, returned to inpatient rehabilitation 07/17/16 with impairments in mobility and self-care, with goal to discharge to home in [place] with his and family. * Status post left-sided parietal intraparenchymal hemorrhage with right-sided hemiparesis, cognitive impairments: D/W OT THAT PATIENT WOULD BENEFIT FROM COCK- UP SPLINT WITH OUTRIGGERS. ESTIM AND BIOFEEDBACK TO IMPROVE RIGHT WRIST EXTENSOR COMPARTMENT STRENGTH. Initial FIM 54 on 07/02/16; improved to 65 on ; FIM 78 on 07/21/1792 on 07/28/16. Advance to I in room starting 07/28/16 & encourage to be involved in assisting. Ambulated > 50' quad cane or FWW min A. Up and down 18 stairs 1 rail. Shower t'mynor CGA, o/w I for ADLs. Showing R hand pinch recruitment specialist and pronation 07/27/16. Continue PT and OT to optimize mobility and ADLs. Using custom-molded right-sided AFO, with an uncut Tamarik hinge. * Cognitive issues s/p CVA. Much improved; BENEFIT AUTHORIZER reducing to 30 min/day, working on higher level cognitive functions. * Deep vein thrombosis/pulmonary embolus: He will need ongoing anticoagulation for 3-6 months, warfarin, with a goal INR of 2-3. He also has an IVC filter in place, and that will need to be removed after 2 to 6 months. Warfarin management pre pharmacy. PT THIS AM PENDING * Hypertension: BP THIS AM 151/80. SBP HAS BEEN TRENDING A LITTLE HIGHER ? DUE TO ANXIETY OVER IMPENDING D/C? WILL BEGIN VALIUM 5MG Q 8 HRS PRN ANXIETY Continue treatment with lisinopril 40 mg daily, and keep stool soft to prevent Valsalva. * Nocturia X 5 overnight 07/27 - 07/28/16. Not noted previously. Normal UA X 2. Continue to monitor. * Glaucoma: Continue dorzolamide. * Insomnia: Continue trazodone q.h.s. * Anemia: Monitor for improvement. Clinically, no need to monitor lab serially. * Prophylaxis: Continue warfarin. WARFARIN PER RX Plan: 07/31/16 11:53 08/01/16 10:41 08/02/16 13:23 08/02/16 13:24 Subjective: NO C/O per patient Objective: Vital Signs Temp Pulse Resp BP Pulse Ox 36.7 C 70 16 151/80 H 94 08/02/16 06:32 08/02/16 06:32 08/02/16 06:32 08/02/16 08:45 08/02/16 06:32 08/01/16 08/02/16 08/03/16 05:59 05:59 05:59 Intake Total 1390 1130 534 Output Total 1625 800 75 Balance -235 330 459 PT 25.1 SEC (12.0-15.0) H 08/02/16 06:20 INR 2.25 (0.83-1.16) H 08/02/16 06:20 Physical Exam - Physical Exam General Appearance: WD/WN, alert, no apparent distress Respiratory: chest non-tender, lungs clear, normal breath sounds Cardiac/Chest: No edema Abdomen: normal bowel sounds, non-tender, soft Extremities: No swelling, No Andrew's sign Neuro/Psych: motor weakness (No change in RUE/RLE MOTOR EXAM; RIGHT HEMIPLEGIA) ICD10 Worksheet Patient Problems: Problems Problem Status Onset Cerebral hemorrhage Acute Palpitations Acute Paroxysmal tachycardia Acute Saddle pulmonary embolus Acute
[2016-08-02] MEDS ORDERED: DIAZEPAM 5 MG TAB PO PRN (13:30)
[2016-08-02] MEDS: WARFARIN SODIUM 5 MG TAB PO SCH (16:22)
[2016-08-02] MEDS: traZODone 50 MG TAB PO SCH (21:15)
[2016-08-03] MEDS: LISINOPRIL 40 MG TAB PO SCH (08:55)
[2016-08-03] MEDS: DORZOLAMIDE 2% OPTH DROPS LEFTEYE SCH ×2 (09:00→21:04)
[2016-08-03] MEDS: MULTIVITAMINS 1 EACH TAB PO SCH (09:01)
--- NOTE | 2016-08-03 12:39 | SOAPPROG ---
[facility] Progress Note Assessment/Plan: Assessment/Plan: 66-year-old male with a dense right-sided hemiparesis starting on 06/16/2016, resulting from a large left parietal lobe intraparenchymal hemorrhage, now complicated by a saddle pulmonary embolus diagnosed on 07/13/2016, returned to inpatient rehabilitation 07/17/16 with impairments in mobility and self-care, with goal to discharge to home in [place] with his and family. 08/03/2016- DC prep today, providing family with scripts. Also working with orthotics for AFO fit mod. Signed orders for air transport. DC diazepam as pt does not have any intention of using for anxiety. INR yesterday was 2.25, stable in range. 25 min was spent on the floor in the care of the patient, the majority was spent in the counseling and coordination of care regarding discharge planning. * Status post left-sided parietal intraparenchymal hemorrhage with right-sided hemiparesis, cognitive impairments: Initial FIM 54 on 07/02/16; improved to 65 on 07/09/16; FIM 78 on 07/21/1792 on 07/28/16. Advance to I in room starting & encourage to be involved in assisting. Ambulated > 50' quad cane or FWW min A. Up and down 18 stairs 1 rail. Shower t'mynor CGA, o/w I for ADLs. Showing R hand pinch lion trainer and pronation 07/27/16. Continue PT and OT to optimize mobility and ADLs. Using custom-molded right-sided AFO, with an uncut Tamarik hinge. * Cognitive issues s/p CVA. Much improved; CLOUD SUBJECT MATTER EXPERT reducing to 30 min/day, working on higher level cognitive functions. * Deep vein thrombosis/pulmonary embolus: He will need ongoing anticoagulation for 3-6 months, warfarin, with a goal INR of 2-3. He also has an IVC filter in place, and that will need to be removed after 2 to 6 months. Warfarin management pre pharmacy. Will DC on 5 mg warfarin, followed with INR. * Hypertension: Continue treatment with lisinopril 40 mg daily, and keep stool soft to prevent Valsalva. * Nocturia X 5 overnight 07/27 - 07/28/16. Not noted previously. Normal UA X 2. Continue to monitor. * Glaucoma: Continue dorzolamide. * Insomnia: Continue trazodone q.h.s. * Anemia: Monitor for improvement. Clinically, no need to monitor lab serially. * Prophylaxis: Continue warfarin, appreciate pharmacy assistance. Continue plan for discharge home to [place] 08/04/16. Will have outpatient PT, OT, CLOUD SUBJECT MATTER EXPERT. Will go by air ambulance per his preference, paid out of pocket. 07/28/16 12:49 07/29/16 11:21 08/03/16 12:34 Subjective: CC: discharge planning No acute events overnight, no new numbness, tingling or weakness. Doing well in therapies. Needing orders for air transport at their request, they will be paying out of pocket for services. Plan to work with physiatry at home, follow INR at home with warfarin adjustment. No other concerns or complaints. Objective: Vital Signs Temp Pulse Resp BP Pulse Ox 36.9 C 92 16 137/87 H 95 08/02/16 19:44 08/03/16 08:00 08/03/16 08:00 08/03/16 08:55 08/02/16 19:44 08/02/16 08/03/16 08/04/16 05:59 05:59 05:59 Intake Total 1130 1721 360 Output Total 800 1075 Balance 330 646 360 PT 25.1 SEC (12.0-15.0) H 08/02/16 06:20 INR 2.25 (0.83-1.16) H 08/02/16 06:20 Physical Exam - Physical Exam General Appearance: alert, no apparent distress EENT: No scleral icterus (R), No scleral icterus (L) Respiratory: No respiratory distress, No accessory muscle use Skin: normal color, warm/dry Neuro/Psych: alert, normal mood/affect, other (right jamie with R AFO, ambulating with some genu recurvatum at midstance. AFO with no shims. right hand 3/5 lion trainer, with trace at upper limb. ) ICD10 Worksheet Patient Problems: Problems Problem Status Onset Cerebral hemorrhage Acute Palpitations Acute Paroxysmal tachycardia Acute Saddle pulmonary embolus Acute
[2016-08-03] MEDS: WARFARIN SODIUM 5 MG TAB PO SCH (17:19)
[2016-08-03] MEDS: traZODone 50 MG TAB PO SCH (21:00)
[2016-08-04 07:36] VITALS: BP 135/84; PULSE 79; RESP 18; TEMP 97.7
[2016-08-04 07:54] VITALS: O2SAT 94
[2016-08-04] MEDS: LISINOPRIL 40 MG TAB PO SCH (08:14)
[2016-08-04] MEDS: MULTIVITAMINS 1 EACH TAB PO SCH (08:14)
[2016-08-04] MEDS: DORZOLAMIDE 2% OPTH DROPS LEFTEYE SCH (08:16)
--- NOTE | 2016-08-04 19:24 | PDOREHIP ---
Admission [facility] - Admission - 3 Day Assessment Period Admission Date/Day 1: 07/17/16 Day 2: 07/18/16 Day 3: 07/19/16 Discharge [facility] - Discharge - 3 Day Assessment Period 2 Days Prior to Anticipated Discharge Date: 08/02/16 1 Day Prior to Anticipated Discharge Date: 08/03/16 Anticipated Discharge Date: 08/04/16 - Discharge Skin Conditions Unhealed Pressure Ulcer (1 or more/Stage 1 or >)-Discharge: 0. No
--- NOTE | 2016-08-05 10:55 | GDS ---
[f rep st] DISCHARGE SUMMARY ADMITTING DIAGNOSIS: Right parietal hemorrhagic cerebrovascular accident. OTHER DIAGNOSES: 1. Pulmonary embolus. 2. Hypertension. CONSULTATIONS: There were none in the current admission. In the prior admission, for which there is already a discharge summary, he received a chest CT which diagnosed a saddle pulmonary embolus and was subsequently admitted to [facility] for several days before returning to inpatient rehabilitation. PROCEDURES: Chest CT. COMPLICATIONS: Pulmonary embolus. HISTORY AND HOSPITAL COURSE: The patient was initially admitted to [facility] inpatient rehabilitation on 07/12/2016. He had been evaluated for a cerebrovascular accident initially on 06/16/2016 and transferred to inpatient rehabilitation on 06/23/2016. Initially, he was quite impaired, with expressive aphasia and profound right upper and lower extremity weakness. The initial functional independence measure on 06/25/16 was 41, which is consistent with needing assistance with all areas of mobility and activities of daily living. He had hemineglect on the right. He needed moderate assistance for bathing and maximal assistance for lower body dressing. He was just beginning pre-gait training. He had gradual but steady improvement. By 07/09/2016, his functional independence measure had improved to 65. He required standby assistance to minimal assistance for bed mobility. Transfers varied from standby assistance to moderate assistance. He could dress his upper body with setup and supervision. On lower body, he required minimal assistance for standing balance. Pulmonary embolus was diagnosed on 07/13/2016, and as it was a saddle pulmonary embolus, he needed to be monitored for cardiorespiratory stability. He remained in the hospital until 07/17/2016, when he was transferred back to inpatient rehabilitation. Once he was back, he made more rapid progress. Eventually, his functional independence measure improved to 78 on 07/21/2016 and to 93 on 07/28/2016, consistent with a high level Assisted [facility] Facility function. He was made independent in his room. He was able to ambulate greater than 50 feet with a quad cane, with minimal assistance. He was able to go up and down 18 stairs with 1 rail. His shower transfer required contact guard assist. Otherwise, he was independent for ADLs. He had regained right hand pinch dry wall applicator and pronation, though he had not regained shoulder or significant biceps or triceps strength on the right. He had a custom molded right-sided AFO with an uncut [place] hinge, which assisted his ability to ambulate. Regarding his cognitive and communication issues, his expressive aphasia resolved early on in his course, and his cognition improved. Ultimately Speech and Language Pathology was reduced from 1 hour per day to 30 minutes per day and was working with him on higher level cognitive functions. Regarding the deep venous thrombosis and pulmonary embolus, he will need to be anticoagulated for 3-6 months. He was begun on warfarin. Additionally, an IVC filter was placed; that will need to be removed anywhere between August and December of 2016. His hypertension was treated with lisinopril 40 mg per day and was overall well controlled. He had insomnia, which responded well to treatment with trazodone. PHYSICAL EXAMINATION ON THE DAY OF DISCHARGE: VITALS: Blood pressure is 135/ 84. Heart rate is 79. Respiratory rate is 18. Oxygen saturation is 94% on room air. Temperature is 36.5 degrees centigrade. GENERAL: This is a well-nourished, well-developed, but thin man, sitting in a wheelchair, cooperative and in no acute distress. HEART: A regular rate and rhythm, with no murmurs, rubs, or gallops. LUNGS: Clear to auscultation bilaterally. ABDOMEN: Soft, nontender, nondistended, with normoactive bowel sounds. EXTREMITIES: There is no cyanosis, clubbing, or edema. NEUROLOGIC: He is alert and oriented x3. He has weakness on the right shoulder and elbow but has close to normal hand dry wall applicator strength, and he has weakness on the right lower extremity, but he is able to arise and ambulate using a quad cane or a front-wheeled walker. Sensation is intact to light touch. LABORATORY VALUES: During his hospitalization, CBC was last checked on 2016. He had a mildly elevated white blood cell count at 10.35 with no left shift. There was no anemia or thrombocytopenia. Most recent INR on 08/02/2016 was 2.25, and this had been stable in the range of 2.25 to 2.99 since 07/24/2016. Serum chemistry on 07/11/2016 was overall within normal limits, but for an elevated glucose at 184. This, however, was not fasting. It was taken at 10:45 a.m. Urinalysis was done on 07/10/2016, which was completely negative for any abnormalities. DISCHARGE PLAN: Condition upon discharge is good. Activity is ad christina, but no driving. Diet is regular. Date of next appointment: He is to follow up with his primary care provider, Dr. Saeed Lloyd in [place] within 1-2 weeks. He will continue outpatient therapy, with physical and occupational therapy, at [facility] in [place]. MEDICATIONS AT DISCHARGE: 1. Trazodone 25 mg p.o. q.h.s. 2. Multivitamin 1 p.o. q. day. 3. Acetaminophen 650 mg p.o. q.4 hours p.r.n. pain. 4. Dorzolamide 1 drop left eye b.i.d. 5. Lisinopril 40 mg p.o. q. day. 6. Warfarin 5 mg p.o. q. day. ISSUES TO BE ADDRESSED AT FOLLOWUP: 1. Functional status: To continue physical and occupational therapies and follow up with his primary care physician, Dr. Lloyd. 2. Pulmonary embolus and deep venous thromboses, on warfarin: He should have a repeat INR drawn on 08/06/2016, with the result going to Dr. Lloyd. 3. Hypertension has been well controlled but can be followed up by Dr. Lloyd. Copy requested to: Dr. Saeed Lloyd [place] /[id number]/MODL MTDD
== END 2016-08-04 10:47 | disposition home health service (06) | DRG 56 ==
LOC: BREH 10:25
PROVIDERS: ADMIT Internal Medicine; ATTEND Internal Medicine
PROC: F08Z4ZZ Home Management Treatment (ICD-10-PCS; principal; 2016-07-17)
PROC: F07M3ZZ Motor Function Treatment of Musculoskeletal System - Whole Body (ICD-10-PCS; principal; 2016-07-17)
PROC: F0636ZZ Communicative/Cognitive Integration Skills Treatment of Neurological System - Whole Body (ICD-10-PCS; principal; 2016-07-17)
PROC: F08Z7ZZ Vocational Activities and Functional Community or Work Reintegration Skills Treatment (ICD-10-PCS; principal; 2016-07-17)
DX: I69.151 Hemiplegia and hemiparesis following nontraumatic intracerebral hemorrhage affecting right dominant side (principal); I69.118 Other symptoms and signs involving cognitive functions following nontraumatic intracerebral hemorrhage; I69.191 Dysphagia following nontraumatic intracerebral hemorrhage; I69.198 Other sequelae of nontraumatic intracerebral hemorrhage; G93.6 Cerebral edema; I82.401 Acute embolism and thrombosis of unspecified deep veins of right lower extremity; I26.99 Other pulmonary embolism without acute cor pulmonale; D64.9 Anemia, unspecified; H40.9 Unspecified glaucoma; I10 Essential (primary) hypertension; G47.00 Insomnia, unspecified; R00.0 Tachycardia, unspecified; K59.00 Constipation, unspecified; R35.1 Nocturia
CPT/HCPCS: 92507-GN; 92522-GN; 97110-GO; 97110-GP; 97112-GO; 97112-GP; 97116-GP; 97162-GP; 97166-GO; 97530-GO; 97530-GP; 97535-GO; 99366-GO; J1650